=== PATIENT | female | born 1945 | race Caucasian/White ===

== ENCOUNTER 2017-04-05 16:41 | Inpatient (IN) | payer MEDICARE ==
[2017-04-05] VITALS (11 sets, daily range): BP systolic 90–121; BP diastolic 49–60; PULSE 86–122; RESP 20–24; TEMP 97.6–98.2; O2SAT 97–99
[~2017-04-05] VITALS: Ht 165.1 cm; Wt 69.4 kg
[~2017-04-05 16:41] MED LIST: Z.0.NO CURRENT MEDS
[2017-04-05] MEDS ORDERED: PRIL20TA2 PO (17:00)
[2017-04-05] MEDS ORDERED: SODIUM CHLOR 0.9% 1000 ML INJ 1,000 ML IV ONE (17:08)
--- NOTE | 2017-04-05 17:11 | PD ---
HPI Chief Complaint: Respiratory Distress Time Seen by Provider: 17:00 Travel History International Travel<30 days: No Contact w/Intl Traveler<30days: No Traveled to known affect area: No History of Present Illness HPI 71-year-old female with left neck mass and pelvic mass, scheduled for an oncology appointment this Saturday, here for evaluation of shortness of breath. The patient reports having shortness of breath for the last 2 months as well as hemoptysis. Shortness of breath is at rest, worse with exertion. No chest pain. No history of DVT or PE. No fevers or chills. No known history of cardiopulmonary disease. PFSH Past Medical History Hx Anticoagulant Therapy: No Cardiovascular Problems: No Chemotherapy: No Cerebrovascular Accident: No Diabetes: No Respiratory: No ?: Not Past Surgical History Hysterectomy: No Social History Tobacco Use: Yes Allergies-Medications (Allergen,Severity, Reaction): Coded Allergies: No Known Allergies (Unverified , 04/05/17) Reported Meds & Prescriptions Reported Meds & Active Scripts Active Reported Prilosec (Omeprazole Magnesium) 20 Mg Tab 20 Tab PO DAILY Review of Systems Except as stated in HPI: all other systems reviewed are Neg Physical Exam Narrative GENERAL: Well-developed, well-nourished, moderate respiratory distress, speaking a few words at a time. SKIN: Focused skin assessment warm/dry. HEAD: Atraumatic. Normocephalic. EYES: Pupils equal and round. No scleral icterus. No injection or drainage. ENT: No nasal bleeding or discharge. Mucous membranes pink and moist. NECK: Trachea midline. No JVD. Large left-sided neck mass. CARDIOVASCULAR: Tachycardic, regular. RESPIRATORY: Moderate respiratory distress. Speaking a few words at a time. Clear to auscultation. Diminished breath sounds on the left. Breath sounds equal bilaterally. GASTROINTESTINAL: Abdomen soft, non-tender, nondistended. MUSCULOSKELETAL: No obvious deformities. No clubbing. No cyanosis. No edema. Bilateral calves are supple, nontender. NEUROLOGICAL: Awake and alert. No obvious cranial nerve deficits. Motor grossly within normal limits. Normal speech. PSYCHIATRIC: Appropriate mood and affect; insight and judgment normal. Data Data Last Documented VS Vital Signs Date Time Temp Pulse Resp B/P (MAP) Pulse Ox O2 Delivery O2 Flow Rate FiO2 04/05/17 20:56 86 91/53 (66) 99 Nasal Cannula 2.00 04/05/17 20:01 97.6 04/05/17 18:46 20 Orders Orders Electrocardiogram (04/05/17 17:08) Complete Blood Count With Diff (04/05/17 17:08) Comprehensive Metabolic Panel (04/05/17 17:08) Prothrombin Time / Inr (Pt) (04/05/17 17:08) Act Partial Throm Time (Ptt) (04/05/17 17:08) Lactic Acid Sepsis Protocol (04/05/17 17:08) Ckmb (Isoenzyme) Profile (04/05/17 17:08) Troponin I (04/05/17 17:08) Urinalysis - C+S If Indicated (04/05/17 17:08) Blood Culture (04/05/17 17:08) Chest, Single Ap (04/05/17 17:08) Blood Glucose (04/05/17 17:08) Ecg Monitoring (04/05/17 17:08) Iv Access Insert/Monitor (04/05/17 17:08) Oximetry (04/05/17 17:08) Oxygen Administration (04/05/17 17:08) Sodium Chlor 0.9% 1000 Ml Inj (Ns 1000 M (04/05/17 17:08) Ct Pulmonary Angiogram (04/05/17 ) Ceftriaxone Inj (Rocephin Inj) (04/05/17 17:45) Azithromycin Inj (Zithromax Inj) (04/05/17 17:45) Acetaminophen (Tylenol) (04/05/17 17:45) Us Guided Thoracentesis (04/05/17 ) Amylase, Pleural Fluid (04/05/17 18:41) Glucose, Pleural Fluid (04/05/17 18:41) Ldh, Pleural Fluid (04/05/17 18:41) Pleural Fluid Ph (04/05/17 18:41) Pleural Fl Cell Count + Diff (04/05/17 18:41) Fluid Culture And Gram Stain (04/05/17 18:41) Cytology Request For Service (04/05/17 18:41) Total Protein, Pleural Fluid (04/05/17 18:41) Chest, Expiration Only (04/05/17 ) Sodium Chlor 0.9% 1000 Ml Inj (Ns 1000 M (04/05/17 20:25) Iohexol 350 Inj (Omnipaque 350 Inj) (04/05/17 19:35) Vancomycin Consult Pharmacy (Vancomycin (04/05/17 21:30) Cefepime Inj (Maxipime Inj) (04/06/17 09:00) ^ Initiate Protocol (04/05/17 21:16) Instruction (04/05/17 21:16) [facility] [place] (04/05/17 21:30) Chlorhexidine 2% Cloth (Chlorhexidine 2% (04/06/17 04:00) Chlorhexidine 2% Cloth (Chlorhexidine 2% (04/05/17 21:30) Mrsa Pcr Surveillance (04/05/17 21:16) Consult Medical Oncology (04/05/17 ) Admit Order (Ed Use Only) (04/05/17 21:18) Admit To Inpatient (04/05/17 ) Vital Signs (Adult) Q4H (04/05/17 21:18) Activity Oob With Assistance (04/05/17 21:18) Grip / Telemetry .CONTINUOUS (04/05/17 21:18) Intake + Output JOVANNA.QSHIFT (04/05/17 21:18) Sodium Chlor 0.9% 1000 Ml Inj (Ns 1000 M (04/05/17 21:18) Sodium Chloride 0.9% Flush (Ns Flush) (04/05/17 21:30) Sodium Chloride 0.9% Flush (Ns Flush) (04/06/17 09:00) Ondansetron Inj (Zofran Inj) (04/05/17 21:30) Comprehensive Metabolic Panel (04/06/17 06:00) Complete Blood Count With Diff (04/06/17 06:00) Scd Bilateral/Knee High JOVANNA.BID (04/05/17 21:18) Christian Bilateral/Knee High JOVANNA.QSHIFT (04/05/17 21:00) Acetaminophen (Tylenol) (04/05/17 21:30) Acetamin-Hydrocod 325-5 Mg ([place] 5-325 (04/05/17 21:30) Morphine Inj (Morphine Inj) (04/05/17 21:30) Docusate Sodium-Senna (Jenelle-Colace) (04/06/17 09:00) Magnesium Hydroxide Liq (Milk Of Magnesi (04/05/17 21:30) Sennosides (Senokot) (04/05/17 21:30) Bisacodyl Supp (Dulcolax Supp) (04/05/17 21:30) Lactulose Liq (Lactulose Liq) (04/05/17 21:30) Inpatient Certification (04/05/17 ) Labs Laboratory Tests Test 04/05/17 17:20 04/05/17 17:30 04/05/17 19:35 04/05/17 20:20 White Blood Count 29.3 TH/MM3 Red Blood Count 3.48 MIL/MM3 Hemoglobin 9.1 GM/DL Hematocrit 28.5 % Mean Corpuscular Volume 81.9 FL Mean Corpuscular Hemoglobin 26.2 PG Mean Corpuscular Hemoglobin Concent 32.0 % Red Cell Distribution Width 15.5 % Platelet Count 446 TH/MM3 Mean Platelet Volume 7.3 FL CBC Comment AUTO DIFF Differential Total Cells Counted 100 Neutrophils % (Manual) 97 % Monocytes % 3 % Neutrophils # (Manual) 28.4 TH/MM3 Differential Comment FINAL DIFF MANUAL Hematology Comments Prothrombin Time 12.8 SEC Prothromb Time International Ratio 1.2 RATIO Activated Partial Thromboplast Time 30.0 SEC Blood Urea Nitrogen 18 MG/DL Creatinine 0.55 MG/DL Random Glucose 144 MG/DL Total Protein 6.3 GM/DL Albumin 1.4 GM/DL Calcium Level 7.3 MG/DL Alkaline Phosphatase 132 U/L Aspartate Amino Transf (AST/SGOT) 27 U/L Alanine Aminotransferase (ALT/SGPT) 16 U/L Total Bilirubin 0.6 MG/DL Sodium Level 121 MEQ/L Potassium Level 3.4 MEQ/L Chloride Level 81 MEQ/L Carbon Dioxide Level 28.5 MEQ/L Anion Gap 12 MEQ/L Estimat Glomerular Filtration Rate 109 ML/MIN Protein Corrected Calcium 7.7 MG/DL Total Creatine Kinase 17 U/L Troponin I LESS THAN 0.02 NG/ML Lactic Acid Level 2.2 mmol/L 1.6 mmol/L Pleural Fluid pH 8.5 Pleural Fluid WBC 700 /MM3 Pleural Fluid RBC 3730 /MM3 Pleural Fluid Neutrophils 19 % Pleural Fluid Lymphocytes 70 % Pleural Fluid Monocytes 11 % Pleural Fluid Total Protein 3.4 GM/DL Pleural Fluid LDH 171 U/L Pleural Fluid Glucose 142 MG/DL MDM Medical Decision Making Medical Screen Exam Complete: Yes Emergency Medical Condition: Yes Medical Record Reviewed: Yes Interpretation(s) EKG: Sinus, rate 112, normal axis, normal intervals, no acute ischemic abnormality. Differential Diagnosis PE, pleural effusion, pericardial effusion, ACS, pneumothorax, pneumonia Narrative Course Chest x-ray read as large left pleural effusion. 6:00 PM: I discussed with on-call radiologist. Currently the interventional radiologist is any procedure. Will try to schedule ultrasound-guided thoracentesis for this evening. Initial vital signs show heart rate 122, blood pressure 121/60, pulse ox 99% on 3 L nasal cannula, oral temp of 98.2F. Rectal temp is 100F. CBC shows WBC 29.3, hemoglobin 9.1, hematocrit 28.5, platelets 446. CMP is remarkable for sodium 121, chloride 81, protein cracked a calcium 7.7. Cardiac enzymes are negative. Lactic acid is 2.2. 8:08 PM: Patient returned from thoracentesis by interventional radiology. 1900 cc of red fluid was removed. Patient appears objectively improved respiratory joya. She still having slight subjective shortness of breath. CT pulmonary angiogram: CONCLUSION: 1. Large, malignant appearing mass of the left lower lobe. The mass involves the pleural and encases/obliterates the left lower lobe pulmonary artery. There is no pulmonary embolus. 2. Metastatic mediastinal lymphadenopathy. 3. 11 mm right lower lobe pulmonary nodule and a few scattered sub-4 mm pulmonary nodules of the left upper lobe will need attention on followup imaging. 4. Reexpansion edema the left upper lobe. The patient is status post left-sided thoracentesis. No pneumothorax. 5. Coronary artery calcification. 6. Nonspecific lobular contour of the liver. Cirrhosis and metastatic disease would be in the differential. There is also fullness of the left adrenal gland and apparent thickening of the visualized stomach. Patient was given IV Rocephin and IV azithromycin cover for pneumonia. She was made aware of all findings. She will be admitted for further treatment and evaluation. Case discussed with hospitalist Dr. Koo who will admit the patient to her service. Critical Care Narrative Aggregate critical care time was 45 minutes. Time to perform other separately billable procedures was not included in the critical care time. My time did not include minutes spent treating any other patients simultaneously or on activities that did not directly contribute to the patient's treatment. The services I provided to this patient were to treat and/or prevent clinically significant deterioration that could result in: , permanent disability, respiratory failure, septic shock I provided critical care services requiring my management, as noted below: Chart data review, documentation time, medication orders and management, vital sign assessments/reviewing monitor data, ordering and reviewing lab tests, ordering and interpreting/reviewing x-rays and diagnostic studies, care of the patient and discussion of the patient with the admitting physicians. Diagnosis Primary Impression: Pleural effusion Additional Impressions: Shortness of breath Sepsis Qualified Codes: A41.9 - Sepsis, unspecified organism Hyponatremia Pneumonia Qualified Codes: J18.9 - Pneumonia, unspecified organism Metastatic disease Lung mass Admitting Information Admitting Physician Requests: Admit Elias Najera MD Apr 05, 2017 17:11
--- NOTE | 2017-04-05 17:28 | RADRPT ---
EXAM DATE/TIME: 04/05/2017 17:08 [facility] COMPARISON: No previous studies available for comparison. INDICATIONS : Shortness of breath for 2 days MEDICAL HISTORY : None. SURGICAL HISTORY : None. ENCOUNTER: Initial ACUITY: 2 days PAIN SCORE: 0/10 LOCATION: Bilateral chest FINDINGS: Portable AP view of the chest demonstrates a normal-sized cardiac silhouette. There is a large pleura l-parenchymal opacity occupying two thirds of the left hemithorax. There is no rightward shift of the mediastinum. Right lung is clear. No pneumothorax is visualized. Bones demonstrate no acute finding. CONCLUSION: Large left pleural effusion with associated volume loss and/or consolidation. Kyler Dunaway MD on April 05, 2017 at 17:25 Board Certified Radiologist. This report was verified electronically.
[2017-04-05] MEDS ORDERED: cefTRIAXone INJ 1,000 MG in SODIUM CHLORIDE 0.9% INJ 100 ML IV ONE (17:45)
[2017-04-05] MEDS ORDERED: ACETAMINOPHEN 325 MG TAB PO ONE (17:45)
[2017-04-05] MEDS ORDERED: AZITHROMYCIN INJ 500 MG in SODIUM CHLOR 0.9% 250 ML INJ 250 ML IV ONE (17:45)
[2017-04-05 17:59] LABS: HEMATOCRIT 28.5 % (35.0-46.0); MEAN CELL VOLUME 81.9 FL (80.0-100.0); MEAN CORPUSCULAR HEMOGLOBIN 26.2 PG (27.0-34.0); PLATELET COUNT 446 TH/MM3 (150-450); RED BLOOD COUNT 3.48 MIL/MM3 (4.00-5.30); RED CELL DISTRIBUTION WIDTH 15.5 % (11.6-17.2); WHITE BLOOD COUNT 29.3 TH/MM3 (4.0-11.0)
[2017-04-05 18:07] LABS: HEMO FLAGS AUTO DIFF
[2017-04-05 18:08] LABS: HEMATOLOGY STUDY COMMENT ND
[2017-04-05 18:19] LABS: INTERNATIONAL NORMALIZED RATIO 1.2 RATIO; PROTHROMBIN TIME - PATIENT 12.8 SEC (9.8-11.6)
[2017-04-05 18:32] LABS: ALKALINE PHOSPHATASE 132 U/L (45-117); ALT (GPT) 16 U/L (10-53); ANION GAP 12 MEQ/L (5-15); AST (GOT) 27 U/L (15-37); BICARBONATE 28.5 MEQ/L (21.0-32.0); BLOOD UREA NITROGEN 18 MG/DL (7-18); CALCIUM-PROTEIN CORRECTED 7.7 MG/DL (8.5-10.1); CHLORIDE 81 MEQ/L (98-107); GLOMERULAR FILTRATION RATE 109 ML/MIN (>89); POTASSIUM 3.4 MEQ/L (3.5-5.1); TOTAL BILIRUBIN ADULT 0.6 MG/DL (0.2-1.0)
[2017-04-05 18:35] LABS: NEUTROPHIL # MANUAL DIFF 28.4 TH/MM3 (1.8-7.7); POLYS (SEG NEUTROPHILS) 97 % (16-70); WBC DIFF SAMPLE 100
[2017-04-05 18:36] LABS: SCAN/DIFF FINAL DIFF MANUAL
[2017-04-05 18:55] LABS: CREATINE KINASE 17 U/L (26-192)
[2017-04-05 18:59] LABS: SODIUM (NA) 121 MEQ/L (136-145)
[2017-04-05] MEDS ORDERED: IOHEXOL 350 MG/ML 10 ML VIAL (for RAD DIAG) IVCONTRAST ONE (19:35)
[2017-04-05 19:51] LABS: LACTIC ACID GHOST NOT REPORTABLE
--- NOTE | 2017-04-05 20:06 | RADRPT ---
EXAM DATE/TIME: 04/05/2017 19:50 [facility] COMPARISON: CHEST SINGLE AP, April 05, 2017, 17:08. INDICATIONS : Post thoracentesis. MEDICAL HISTORY : None. SURGICAL HISTORY : None. ENCOUNTER: Subsequent ACUITY: 1 day PAIN SCORE: 0/10 LOCATION: Bilateral chest FINDINGS: Near-complete resolution of the previously seen left pleural effusion after thoracentesis. A 9 cm rou nded opacity is now seen in the left hilum. There is mild consolidation of the left lung base. Right lung remains clear. No pneumothorax. CONCLUSION: 1. Near-complete resolution of left pleural effusion post thoracentesis. No pneumothorax. 2. Mild left base consolidation. 3. Large left hilar mass. Kyler Parisi MD on April 05, 2017 at 20:04 Board Certified Radiologist. This report was verified electronically.
[2017-04-05] MEDS ORDERED: SODIUM CHLOR 0.9% 1000 ML INJ 1,000 ML IV SCH (20:25)
--- NOTE | 2017-04-05 20:55 | RADRPT ---
EXAM DATE/TIME: 04/05/2017 20:29 [facility] COMPARISON: CHEST EXPIRATION ONLY, April 05, 2017, 19:50. CHEST SINGLE AP, April 05, 2017, 17:08. INDICATIONS : Shortness of breath. History neck tumor. IV CONTRAST: 72 cc Omnipaque 350 (iohexol) IV RADIATION DOSE: 23.25 CTDIvol (mGy) MEDICAL HISTORY : Cerebrovascular disease. SURGICAL HISTORY : Thoracenthesis a few minutes ago. ENCOUNTER: Initial ACUITY: 1 month PAIN SCALE: 5/10 LOCATION: Bilateral chest TECHNIQUE: Volumetric scanning of the chest was performed using a pulmonary embolism protocol MIP images were re constructed. Using automated exposure control and adjustment of the mA and/or kV according to patien t size, radiation dose was kept as low as reasonably achievable to obtain optimal diagnostic quality images. DICOM format image data is available electronically for review and comparison. Follow-up recommendations for detected pulmonary nodules are based at a minimum on nodule size and pa tient risk factors according to Fleischner Society Guidelines. FINDINGS: Large left lower lobe mass measuring approximately 9.4 x 11.2 x 12.2 cm in size noted. There is patch y in mass like and nodular pleural thickening on the left. The mass encases and obliterates the left lower lobe pulmonary artery. No pulmonary embolus demonstrated. There is a subcarinal lymph node measuring 2.6 x 4.0 cm in size. Patchy infiltrates seen in the lingular division of the left upper lobe, most likely reexpansion rela marcelino from recent thoracentesis. A few scattered sub-4 mm left upper lobe pulmonary nodules are noted. There is no pneumothorax. 11 mm irregular nodule seen in the right lower lobe, series 3 image 80. Normal heart size. Coronary artery calcification noted. Lobular contour seen of the visualized liver, especially the left hepatic lobe. There is fullness of the left adrenal gland. Right adrenal gland not included on the study. Potentially some wall thickeni ng of the stomach. Cyst noted of the upper pole of the left kidney. CONCLUSION: 1. Large, malignant appearing mass of the left lower lobe. The mass involves the pleural and encases/ obliterates the left lower lobe pulmonary artery. There is no pulmonary embolus. 2. Metastatic mediastinal lymphadenopathy. 3. 11 mm right lower lobe pulmonary nodule and a few scattered sub-4 mm pulmonary nodules of the left upper lobe will need attention on followup imaging. 4. Reexpansion edema the left upper lobe. The patient is status post left-sided thoracentesis. No pne umothorax. 5. Coronary artery calcification. 6. Nonspecific lobular contour of the liver. Cirrhosis and metastatic disease would be in the differe ntial. There is also fullness of the left adrenal gland and apparent thickening of the visualized sto mach. Kyler Parisi MD on April 05, 2017 at 20:46 Board Certified Radiologist. This report was verified electronically.
--- NOTE | 2017-04-05 21:21 | HHI.HP ---
[facility] No Primary Care Physician Admission Diagnosis lung mass, metastatic disease, pleural effusion, sepsis Diagnoses: (1) Sepsis Diagnosis: Principal (2) Metastatic disease Diagnosis: Principal (3) Pleural effusion Diagnosis: Principal (4) Hyponatremia Diagnosis: Principal Travel History International Travel<30 Days: No Contact w/Intl Traveler <30 Da: No Traveled to Known Affected Are: No History of Present Illness This is a 71-year-old female with no significant PMH reported who presented to the ER with complaints of SOB x1 month. States she noted left neck mass approx 1mo ago at the time symptoms started, was also told she has pelvic mass, scheduled for appt w/ Oncology on Saturday, however pt doesn't know name of physician. Today, SOB progressively worse. Denies fever, chills, cough or sick contacts. On arrival, BP 121/60, HR 122, O2 sat 99% on RA, Afebrile. WBC 29.3. Hemoglobin 9.1. Na 121. Lactic Acid 2.2, repeat 1.6. Negative. INR 1.2. CXR with large left pleural effusion with associated volume loss and or consolidation. S/p Thoracentesis by IR w/ removal of 1900cc bloody fluid, CTA Pulm negative for PE, found to have large malignant appearing mass LLL which obliterates left pulm artery, re-expansion edema in OLVIN, possible metastatic disease to liver. Pt previously unaware of these findings. S/p Blood Culture, Rocephin/Zitho in ER. Review of Systems Except as stated in HPI: all other systems reviewed are Neg ROS: 14 point review of systems otherwise negative. Past Family Social History Past Medical History PMH: None Past Surgical History PAST SURGICAL HISTORY: None Allergies: Coded Allergies: No Known Allergies (Unverified , 04/05/17) Family History PAST FAMILY HISTORY: Reviewed. No h/o DM or CAD Social History PAST SOCIAL HISTORY: Negative for alcohol or drugs. History of Tobacco Abuse, quit 6 years ago. Physical Exam Vital Signs Vital Signs Date Time Temp Pulse Resp B/P (MAP) Pulse Ox O2 Delivery O2 Flow Rate FiO2 8/25/17 20:56 86 91/53 (66) 99 Nasal Cannula 2.00 04/05/17 20:45 91 103/49 (67) 98 Nasal Cannula 2.00 04/05/17 20:24 97 Nasal Cannula 2.00 04/05/17 20:24 (67) 98 Nasal Cannula 2.00 04/05/17 20:21 95 90/55 (67) 04/05/17 20:01 97.6 98 95/55 (68) 97 Nasal Cannula 04/05/17 19:45 97.6 100 93/58 (70) 98 Nasal Cannula 2.00 04/05/17 18:46 98.2 113 20 119/60 (79) 98 Nasal Cannula 3.00 04/05/17 17:18 24 99 Nasal Cannula 3.00 04/05/17 17:16 99 Nasal Cannula 3.00 04/05/17 16:55 122 24 99 Nasal Cannula 3.00 04/05/17 16:54 98.2 122 24 121/60 (80) 99 Physical Exam PE: GENERAL: Elderly female in no acute distress. HEENT: PERRLA, EOMI. No scleral icterus or conjunctival pallor. No lid lag or facial droop. Large neck mass, left. CARDIOVASCULAR: Regular rate and rhythm. No obvious murmurs to auscultation. No chest tenderness to palpation. RESPIRATORY: No obvious rhonchi or wheezing. Clear to auscultation. Breath sounds equal bilaterally. GASTROINTESTINAL: Abdomen soft, non-tender, nondistended. BS normal. MUSCULOSKELETAL: Extremities without clubbing, cyanosis, or edema. No obvious deformities. NEUROLOGICAL: Awake, alert and oriented x4. No focal neurologic deficits. Moving both upper and lower extremities spontaneously. Laboratory Laboratory Tests Test 04/05/17 17:20 04/05/17 17:30 04/05/17 19:35 04/05/17 20:20 White Blood Count 29.3 Red Blood Count 3.48 Hemoglobin 9.1 Hematocrit 28.5 Mean Corpuscular Volume 81.9 Mean Corpuscular Hemoglobin 26.2 Mean Corpuscular Hemoglobin Concent 32.0 Red Cell Distribution Width 15.5 Platelet Count 446 Mean Platelet Volume 7.3 CBC Comment AUTO DIFF Differential Total Cells Counted 100 Neutrophils % (Manual) 97 Monocytes % 3 Neutrophils # (Manual) 28.4 Differential Comment FINAL DIFF MANUAL Hematology Comments Prothrombin Time 12.8 Prothromb Time International Ratio 1.2 Activated Partial Thromboplast Time 30.0 Blood Urea Nitrogen 18 Creatinine 0.55 Random Glucose 144 Total Protein 6.3 Albumin 1.4 Calcium Level 7.3 Alkaline Phosphatase 132 Aspartate Amino Transf (AST/SGOT) 27 Alanine Aminotransferase (ALT/SGPT) 16 Total Bilirubin 0.6 Sodium Level 121 Potassium Level 3.4 Chloride Level 81 Carbon Dioxide Level 28.5 Anion Gap 12 Estimat Glomerular Filtration Rate 109 Protein Corrected Calcium 7.7 Total Creatine Kinase 17 Troponin I LESS THAN 0.02 Lactic Acid Level 2.2 1.6 Pleural Fluid pH 8.5 Date/Time Source Procedure Growth Status 04/05/17 17:20 Blood Peripheral Aerobic Blood Culture Pending Received 04/05/17 17:20 Blood Peripheral Anaerobic Blood Culture Pending Received 04/05/17 19:35 Fluid Pleural Fluid Gram Stain Pending Received 04/05/17 19:35 Fluid Pleural Fluid Body Fluid Culture Pending Received Result Diagram: 04/05/17 1720 04/05/17 1720 Caprini VTE Risk Assessment Caprini VTE Risk Assessment: Mod/High Risk (score >= 2) VTE Pharm Contraindication: High risk for bleeding Caprini Risk Assessment Model Point Value = 1 Point Value = 2 Point Value = 3 Point Value = 5 Age 41-60 Minor surgery BMI > 25 kg/m2 Swollen legs Varicose veins or History of unexplained or recurrent spontaneous Oral contraceptives or hormone replacement Sepsis (< 1 month) Serious lung disease, including pneumonia (< 1 month) Abnormal pulmonary function Acute myocardial infarction Congestive heart failure (< 1 month) History of inflammatory bowel disease Medical patient at bed rest Age 61-74 Arthroscopic surgery Major open surgery (> 45 min) Laparoscopic surgery (> 45 min) Malignancy Confined to bed (> 72 hours) Immobilizing plaster cast Central venous access Age >= 75 History of VTE Family history of VTE Factor V Leiden Prothrombin [id number] Lupus anticoagulant Anticardiolipin antibodies Elevated serum homocysteine Heparin-induced thrombocytopenia Other congenital or acquired thrombophilia Stroke (< 1 month) Elective arthroplasty Hip, pelvis, or leg fracture Acute spinal cord injury (< 1 month) Prophylaxis Regimen Total Risk Factor Score Risk Level Prophylaxis Regimen 0-1 Low Early ambulation 2 Moderate Order ONE of the following: *Sequential Compression Device (SCD) *Heparin 5000 units SQ BID 3-4 Higher Order ONE of the following medications: *Heparin 5000 units SQ TID *Enoxaparin/Lovenox 40 mg SQ daily (WT < 150 kg, CrCl > 30 mL/min) *Enoxaparin/Lovenox 30 mg SQ daily (WT < 150 kg, CrCl > 10-29 mL/min) *Enoxaparin/Lovenox 30 mg SQ BID (WT < 150 kg, CrCl > 30 mL/min) AND/OR *Sequential Compression Device (SCD) 5 or more Highest Order ONE of the following medications: *Heparin 5000 units SQ TID (Preferred with Epidurals) *Enoxaparin/Lovenox 40 mg SQ daily (WT < 150 kg, CrCl > 30 mL/min) *Enoxaparin/Lovenox 30 mg SQ daily (WT < 150 kg, CrCl > 10-29 mL/min) *Enoxaparin/Lovenox 30 mg SQ BID (WT < 150 kg, CrCl > 30 mL/min) AND *Sequential Compression Device (SCD) Assessment and Plan Problem List: (1) Sepsis ICD Code: A41.9 - Sepsis, unspecified organism Status: Acute (2) Metastatic disease ICD Code: C79.9 - Secondary malignant neoplasm of unspecified site Status: Acute (3) Pleural effusion ICD Code: J90 - Pleural effusion, not elsewhere classified Status: Acute (4) Hyponatremia ICD Code: E87.1 - Hypo-osmolality and hyponatremia Status: Acute Assessment and Plan A/P: 1. Sepsis: HR 122, WBC 29.3, Lactic Acid 2.2. Source-presumably PNA. S/p Blood Culture/Fluid Cultures, Rocephin/Zithro. Follow up cultures, continue w/ broad spectrum antibiotics w/ IV Vanc/Cefepime. 2. Left Pleural Effusion: SOB x1 mo, now w/ progressive symptoms, CXR w/ large left pleural effusion, s/p Thoracentesis by IR w/ removal of 1900cc sanguinous fluid. 3. Metastatic Disease: Large left-sided neck mass, reports pelvic mass w/ upcoming Oncology appt, CTA Pulm w/ large malignant appearing lung mass LLL which obliterates left lower lobe pulmonary artery, metastatic mediastinal lymphadenopathy, and cirrhosis w/ possible metastatic disease, images reviewed by me. Will consult Oncology for further eval. Obtain CT Abd/Pelvis in 24hrs after CTA. 4. Hyponatremia: Na 121, possibly secondary to dehydration from sepsis, or SIADH, s/p IVF, repeat labs in am. 5. DVT Prophylaxis: SCD/Teds. 6. Social work for d/c planning as needed. 7. Case discussed w/ ER physician at length. Physician Certification 2 Midnight Certification Type: Admission for Inpatient Services Order for Inpatient Services The services are ordered in accordance with Medicare regulations or non- Medicare payer requirements, as applicable. In the case of services not specified as inpatient-only, they are appropriately provided as inpatient services in accordance with the 2-midnight benchmark. Estimated LOS (days): 2 days is the estimated time the patient will need to remain in the hospital, assuming treatment plan goals are met and no additional complications. Post-Hospital Plan: Not yet determined Problem Qualifiers (1) Sepsis: Qualified Codes: A41.9 - Sepsis, unspecified organism Matilda Koo MD Apr 05, 2017 21:21
[2017-04-05] MEDS ORDERED: MAGNESIUM HYDROXIDE SUSP 30 ML CUP PO PRN (21:30)
[2017-04-05] MEDS ORDERED: MISCELLANEOUS NURSING INFORMATION XX SCH (21:30)
[2017-04-05] MEDS ORDERED: LACTULOSE SYRUP 20 GM/30 ML CUP PO PRN (21:30)
[2017-04-05] MEDS ORDERED: SENNOSIDES 8.6 MG TAB PO PRN (21:30)
[2017-04-05] MEDS ORDERED: ONDANSETRON HCL 4 MG/2 ML VIAL IVP PRN (21:30)
[2017-04-05] MEDS ORDERED: BISACODYL 10 MG SUPP RECTAL PRN (21:30)
[2017-04-05] MEDS ORDERED: CHLORHEXIDINE GLUCONATE 2 % 1 PACK (2 CLOTHS) TOP PRN (21:30)
[2017-04-05] MEDS ORDERED: MORPHINE SULFATE 4 MG/ML INJ IV PRN (21:30)
[2017-04-05] MEDS ORDERED: ACETAMINOPHEN 325 MG TAB PO PRN (21:30)
[2017-04-05] MEDS ORDERED: SODIUM CHLORIDE 0.9% FLUSH 10 ML FLUSH IV FLUSH PRN (21:30)
[2017-04-05] MEDS ORDERED: Vancomycin Consult Pharmacy 1 EA OTHER SCH (21:30)
[2017-04-05 21:43] LABS: TOTAL PROTEIN,PLEURAL FLUID 3.4 GM/DL
[2017-04-05] MEDS: SODIUM CHLOR 0.9% 1000 ML INJ 1,000 ML IV SCH (21:58)
[2017-04-05] MEDS: VANCOMYCIN 1,000 MG/NS 250 ML IV SCH ×2 (22:05)
[2017-04-05 22:33] LABS: PLEURAL FLUID LYMPHS 70 %
[2017-04-06] VITALS (12 sets, daily range): BP systolic 88–105; BP diastolic 55–60; PULSE 90–124; RESP 20–35; TEMP 98.4–98.9; O2SAT 93–96
[2017-04-06] MEDS ORDERED: POTASSIUM CHLORIDE 20 MEQ CONTROLLED RELEASE TAB PO ONE (00:30)
[2017-04-06] MEDS ORDERED: diphenhydrAMINE HCL 25 MG CAP PO ONE (00:30)
[2017-04-06] MEDS: CHLORHEXIDINE GLUCONATE 2 % 1 PACK (2 CLOTHS) TOP SCH (00:36)
[2017-04-06] MEDS: SODIUM CHLOR 0.9% 1000 ML INJ 1,000 ML IV SCH ×2 (08:12→17:18)
[2017-04-06] MEDS: CEFEPIME INJ 1,000 MG in SODIUM CHLORIDE 0.9% INJ 100 ML IV SCH ×2 (08:14→20:21)
[2017-04-06] MEDS: SODIUM CHLORIDE 0.9% FLUSH 10 ML FLUSH IV FLUSH SCH ×2 (08:14→20:22)
[2017-04-06] MEDS: DOCUSATE SODIUM 50 MG/SENNA 8.6 MG TAB PO SCH ×2 (08:15→20:22)
[2017-04-06] MEDS: VANCOMYCIN 1,000 MG/NS 250 ML IV SCH ×4 (08:17→21:38)
[2017-04-06 09:39] LABS: ALKALINE PHOSPHATASE 112 U/L (45-117); ALT (GPT) 17 U/L (10-53); ANION GAP 11 MEQ/L (5-15); AST (GOT) 25 U/L (15-37); CHLORIDE 91 MEQ/L (98-107); GLOMERULAR FILTRATION RATE 184 ML/MIN (>89); POTASSIUM 3.7 MEQ/L (3.5-5.1); SODIUM (NA) 125 MEQ/L (136-145); TOTAL BILIRUBIN ADULT 0.8 MG/DL (0.2-1.0)
[2017-04-06 09:41] LABS: BLOOD UREA NITROGEN 10 MG/DL (7-18)
--- NOTE | 2017-04-06 13:23 | MB ---
cc: NICO BE DATE OF CONSULTATION: 04/06/2017 REASON FOR CONSULTATION: 71-year-old female with a rapidly enlarging left neck mass, huge left lung mass, mass above the vulva and mass over the right back. PATIENT PROFILE The patient is a 71-year white female. She is . She was once she was born in [place], [place]. Her father is 97 and resides with her. She has no children. She was independent until the past month when she became ill and debilitated. She is retired. 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 She stopped smoking 60 years ago and smoked a pack of cigarettes per day for 40 pack-years. She has had no alcohol since 1977 but prior to this was alcoholic. She has cirrhosis secondary to her previous alcohol intake. HISTORY OF PRESENT ILLNESS The patient is a 71-year female who dates her current problem back to approximately 3 months ago when she noted a small nodule in the left neck and some fullness immediately above the left vulvar area. This grew rapidly. She has seen three physicians. She saw Dr. Silva who is an ear, nose, and throat physician. she apparently had some type of biopsy and was being referred to [place], [place] for surgery for possible head and neck cancer. She saw Dr. Carter who is a fashion journalist due to a mass in the vulvar area and was referred to Dr. Wetzel who is a gynecologic oncologist. She has not had the appointment with Dr. Wetzel as of the present time. Over the past several weeks the neck mass has grown considerably. She became increasingly short of breath and this prompted her to go to the emergency room at [facility]. On 04/05/[address] of the thorax which shows a large malignant appearing mass involving the left lower lobe extending to the pleura and encases and obliterates the left lower lobe pulmonary artery. There is no pulmonary embolus. There is mediastinal adenopathy. There is a 11 mm right lower lobe pulmonary nodule and a few scattered sub 4 mm pulmonary nodules involving the left upper lobe. The patient underwent a thoracentesis, cytology is pending. At the present time her problems are exertional shortness of breath and an enlarging but not painful mass in the left neck, a mass in the right posterior back which has been growing over the past month and a mass above the left vulvar area. She has lost about 15 pounds. Appetite is slightly diminished. She has exertional shortness of breath. She has had night sweats on two occasions. PAST SURGICAL HISTORY 1. Fracture left wrist. PAST MEDICAL HISTORY 1. Previous history of alcoholism with cirrhosis. 2. Last colonoscopy approximately [address] Bailey and she states that this was a normal. She had an upper endoscopy approximately 9 years ago and found have an ulcer in the stomach. MEDICATIONS PRIOR TO ADMISSION Omeprazole. ALLERGIES None. FAMILY HISTORY Notable for her mother dying of colon cancer. I was her mothers physician. Her father is 97 and living. She is only child. REVIEW OF SYSTEMS HEAD, EYES, EARS, NOSE, AND THROAT: Vision is normal. Hearing is normal. CARDIOVASCULAR SYSTEM: No chest pain, palpitations. RESPIRATORY: Exertional shortness of breath. GASTROINTESTINAL: No melena acute hematemesis. There is an 10-15 pounds weight loss. GENITOURINARY: No dysuria, frequency, hematuria. MUSCULOSKELETAL: No bone pain. NEUROLOGIC: No weakness. No psychiatric illness. SKIN: The skin is notable for the soft tissue mass left neck, back and above the left vulvar area. PHYSICAL EXAMINATION: IN GENERAL: Reveals a pleasant female and when I walked into the room there is a softball size mass protruding from the left neck with the skin tense and slightly purple. HEAD, EYES, EARS, NOSE, AND THROAT: Head is normocephalic. Sclerae and conjunctivae are normal. Oropharynx is unremarkable. Mass or lymph node in the left neck as described above. It appears to be a single huge mass the size of a baseball. It is fixed. HEART: Regular rhythm. LUNGS: The right lung clear, left lung diminished sounds. ABDOMEN: The abdomen is without hepatosplenomegaly. EXTREMITIES: The extremities with trace edema. MUSCULOSKELETAL: No bone pain. NEUROLOGIC: No weakness. SKIN: Examination of skin reveals the large left neck mass. There is a subcutaneous soft tissue mass above the left vulvar area 5-6 cm. There is a 5 cm firm mass in the middle of the back on the right side. LABORATORY STUDIES: Lytes, BUN and creatinine notable for sodium 125, liver function tests are normal. Albumin is 1.2. CBC and platelet count hemoglobin 9.1, white count 29,000, platelets 466,000 neutrophils and 97%. ASSESSMENT 1. 71 year-old female with a rapidly progressive malignancy involving neck, back, lung, soft tissue. This is not a surgical problem. The diseases that come to mind; 1. Small cell lung cancer which would explain the low sodium. 2. Lymphoma. RECOMMENDATIONS It is imperative that we establish a diagnosis quickly, as this has grown enormously in the span of several months. I believe that the most appropriate thing to do is a biopsy of the subcutaneous lesion over the back, to obtain adequate tissue to make a diagnosis and to allow for special studies if indicated. I contacted Dr. Juliocesar Carter who is a surgeon. He was kind enough to come up to the room and examined the patient and he will do a biopsy this coming Saturday. He will place an [id number] at the same time. I have ordered a CEA and LDH. I believe it will be easy to establish a diagnosis and hopefully we are dealing with a treatable malignancy. MD NARCISO Copeland/rudy /12:37 PM /1:01 PM MTDMnial
[2017-04-06 13:42] LABS: AUTOMATED NEUTROPHIL # 23.1 TH/MM3 (1.8-7.7); BASOPHIL # 0.1 TH/MM3 (0-0.2); BASOPHIL % 0.5 % (0.0-2.0); EOSINOPHIL # 0.4 TH/MM3 (0-0.4); EOSINOPHIL % 1.4 % (0.0-4.0); HEMATOCRIT 26.5 % (35.0-46.0); HEMO FLAGS DIFF FINAL; LYMPHOCYTE # 2.5 TH/MM3 (1.0-4.8); MEAN CELL VOLUME 81.3 FL (80.0-100.0); MEAN CORPUSCULAR HEMOGLOBIN 27.7 PG (27.0-34.0); MEAN CORPUSCULAR HGB CONC 34.1 % (32.0-36.0); MONO % 5.8 % (0.0-8.0); NEUT % 83.3 % (16.0-70.0); PLATELET COUNT 337 TH/MM3 (150-450); RED BLOOD COUNT 3.26 MIL/MM3 (4.00-5.30); WHITE BLOOD COUNT 27.7 TH/MM3 (4.0-11.0)
[2017-04-06] MEDS ORDERED: TEMAZEPAM 15 MG CAP PO PRN (14:30)
--- NOTE | 2017-04-06 14:34 | HHI.PR ---
Subjective Remarks patient awake and alert left neck/submandibular mass since December- had difficulty setting up with a PCP increasing shortness of breath since- finally came had thoracentesis done- shortness of breath unchange after thoracentesis denies any pain, fever or chills, no difficulty swallowing requesting for a sleeping pill for tonight states smoker about 1 pack per day patient feels more comfortable and at ease now that Dr. Barajas is going to be ff her here and as OP Objective Vitals Vital Signs Date Time Temp Pulse Resp B/P (MAP) Pulse Ox O2 Delivery O2 Flow Rate FiO2 04/06/17 08:00 105 04/06/17 08:00 98.8 101 24 101/55 (70) 93 04/06/17 06:00 103 04/06/17 04:00 104 04/06/17 04:00 98.6 96 22 99/56 (70) 94 04/06/17 02:00 96 04/06/17 00:00 90 04/06/17 00:00 98.4 90 35 93/55 (68) 95 04/05/17 22:00 92 98/55 (69) 98 Nasal Cannula 2.00 04/05/17 21:55 99 Nasal Cannula 2.00 04/05/17 21:43 89 90/52 (65) 99 Nasal Cannula 2.00 04/05/17 20:56 86 91/53 (66) 99 Nasal Cannula 2.00 04/05/17 20:45 91 103/49 (67) 98 Nasal Cannula 2.00 04/05/17 20:24 97 Nasal Cannula 2.00 04/05/17 20:24 (67) 98 Nasal Cannula 2.00 04/05/17 20:21 95 90/55 (67) 04/05/17 20:01 97.6 98 95/55 (68) 97 Nasal Cannula 04/05/17 19:45 97.6 100 93/58 (70) 98 Nasal Cannula 2.00 04/05/17 18:46 98.2 113 20 119/60 (79) 98 Nasal Cannula 3.00 04/05/17 17:18 24 99 Nasal Cannula 3.00 04/05/17 17:16 99 Nasal Cannula 3.00 04/05/17 16:55 122 24 99 Nasal Cannula 3.00 04/05/17 16:54 98.2 122 24 121/60 (80) 99 I/O 04/05/17 04/05/17 04/05/17 04/06/17 04/06/17 04/06/17 07:00 15:00 23:00 07:00 15:00 23:00 Intake Total 1350 ml 1490 ml Balance 1350 ml 1490 ml Intake Oral 240 ml IV Total 1350 ml 1250 ml # Voids 2 Result Diagram: 04/06/17 1230 04/06/17 0853 Imaging Last Impressions Chest X-Ray 04/05/17 1708 Signed Impressions: Service Date/Time: Wednesday, April 05, 2017 17:08 - CONCLUSION: Large left pleural effusion with associated volume loss and/or consolidation. Kyler Dunaway MD CT Angiography 04/05/17 0000 Signed Impressions: Service Date/Time: Wednesday, April 05, 2017 20:29 - CONCLUSION: 1. Large, malignant appearing mass of the left lower lobe. The mass involves the pleural and encases/obliterates the left lower lobe pulmonary artery. There is no pulmonary embolus. 2. Metastatic mediastinal lymphadenopathy. 3. 11 mm right lower lobe pulmonary nodule and a few scattered sub-4 mm pulmonary nodules of the left upper lobe will need attention on followup imaging. 4. Reexpansion edema the left upper lobe. The patient is status post left-sided thoracentesis. No pneumothorax. 5. Coronary artery calcification. 6. Nonspecific lobular contour of the liver. Cirrhosis and metastatic disease would be in the differential. There is also fullness of the left adrenal gland and apparent thickening of the visualized stomach. Kyler Parisi MD Objective Remarks awake and alert, tachycardic anciteric large left neck mass with discoloration upper back- right side- softball size mass, hard, nontender lungs no rales or wheezes. decrease breath sounds left base tachycardic abdomen soft, nontender abdomen soft, nontender + vulvar mass extremities no edema neuro exam- non focal Procedures 04/05- left thoracentesis A/P Problem List: (1) Sepsis ICD Code: A41.9 - Sepsis, unspecified organism Status: Acute (2) Metastatic disease ICD Code: C79.9 - Secondary malignant neoplasm of unspecified site Status: Acute (3) Pleural effusion ICD Code: J90 - Pleural effusion, not elsewhere classified Status: Acute (4) Hyponatremia ICD Code: E87.1 - Hypo-osmolality and hyponatremia Status: Acute Assessment and Plan 71 years old female Multiple masses- left neck, right upper back, vulvar mass- r/o Lymphoma- work up in progress. GS consulted for biopsy and port placement SIRs from underlying malignancy- possible infection-PNA: ff blodd and pleural fuid studies. continue on Vanco and Cefepime. work up in progress Left Pleural Effusion likely malignant pleural ceffusion . SOB x1 mo, now w/ progressive symptoms, CXR w/ large left pleural effusion, s/p Thoracentesis by IR w/ removal of 1900cc sanguinous fluid. Hyponatremia: likely siADH. ff. fluid restriction DVT Prophylaxis: SCD/Teds. will need Case management involved dietitian consult dietary consult= nutrition assessment and recommendation. start ensure Problem Qualifiers (1) Sepsis: Qualified Codes: A41.9 - Sepsis, unspecified organism Marisela Thurston MD Apr 06, 2017 14:34
--- NOTE | 2017-04-06 15:17 | MB ---
cc: ALONSO ALSTON M.D. DATE OF CONSULTATION: 04/06/2017. REASON FOR CONSULTATION: Biopsy of a back mass. HISTORY OF PRESENT ILLNESS: Ms. Peterson is a very pleasant 71-year-old female who was admitted for progressive shortness of breath. During her workup and evaluation, she was noted to have a very large left neck mass as well as a vulvar mass as well as a mass on her back. She was also noted to have a large left pleural effusion with a large left lung mass. The patient was seen and evaluated by Dr. Cricket Barajas. Apparently she is undergoing workup for ENT for the left neck mass, workup with [facility] for the vulvar mass, and she has not seen anybody yet for the back mass. The patient underwent a thoracentesis with removal of two liters of bloody fluid. Dr. Barajas is concerned about an obvious malignancy and he requested evaluation by surgery for a formal biopsy of one of these masses in order to establish definitive diagnosis. The patient states that the mass in her left neck has only been there about a month and it is rapidly enlarging. She states she was healthy prior to all this. As stated, she has seen multiple physicians including ENT and [facility] who are currently working her up for all these masses. She was seen and evaluated today by Dr. Cricket Barajas, who called me and asked me to perform a biopsy of the back mass to establish the diagnosis with tissue. PAST MEDICAL HISTORY: She had alcoholism. PAST SURGICAL HISTORY: She had an open reduction internal fixation of her left wrist. MEDICATIONS: She only took Prilosec PRN. ALLERGIES: SHE HAS NO KNOWN DRUG ALLERGIES. SOCIAL HISTORY: She is a former smoker but quit many years ago. She does not drink alcohol currently but did have previous cirrhosis secondary to alcohol abuse. FAMILY HISTORY: Her family history is remarkable for colon cancer. REVIEW OF SYSTEMS: The patient reports progressive shortness of breath. She denies any dysphagia secondary to the neck mass. She denies any abdominal pain. She denies any fever or chills. PHYSICAL EXAMINATION: VITAL SIGNS: Temperature is 98, pulse is 100, blood pressure is 100/60, respiratory rate 22. GENERAL: In general, this is an ill-appearing female with a large left neck mass. HEAD, EYES, EARS, NOSE, THROAT: Pupils equal, round and reactive to light. The sclerae are white. The oropharynx is clear and moist. She has a large firm 5 cm left neck mass that is in the lateral compartment that is fixed and immobile. No other obvious masses or adenopathy is noted. LUNGS: Decreased breath sounds on the entire left side. HEART: S1-S2. No murmur. ABDOMEN: Abdomen soft and nontender. She has a mass in the left vulvar region that is also large and firm and fixed. BACK: On her back, she has about a 4 cm firm back mass on the left lower back. Skin overlying is normal in appearance. EXTREMITIES: No gross deformity x4. LABS: White blood cell count is 27, hemoglobin 9, platelet count is 337,000. Electrolytes are abnormal with hyponatremia with a sodium of 125. Calcium is low at 7.6. Albumin is low at 1.2. IMPRESSION: Probable metastatic malignancy of undetermined etiology. PLAN: I have advised the patient that I would recommend going to the operating room for a formal biopsy of the back mass as this seems to be most accessible. I also discussed with Dr. Barajas that we should probably consider putting an Infusaport in as the patient has poor peripheral access and will likely need some sort of chemotherapy. Both the patient and Dr. Barajas agree that the Infusaport should be placed. We will schedule the patient for Saturday in the operating room as there is no pathology available on the weekends. We will get this done on Saturday and hopefully establish the diagnosis. The patient is agreeable to the plan. MD RENARD Suarez/HARDY /2:51 PM /3:00 PM
--- NOTE | 2017-04-06 18:30 | EKG ---
Date Performed: 04/05/2017 Time Performed: 17:38:39 PTAGE: 71 years EKG: SINUS TACHYCARDIA WITH SHORT ME INTERVAL ABNORMAL RHYTHM ECG PREVIOUS TRACING : 01/18/1996 10.35 Compared to the previous tracing rate faster DOCTOR: Mick Grimaldo Interpretating Date/Time 04/06/2017 18:30:12
[2017-04-06] MEDS ORDERED: ZOLPIDEM TARTRATE 5 MG TAB PO ONE (23:45)
[2017-04-07] VITALS (14 sets, daily range): BP systolic 94–140; BP diastolic 50–61; PULSE 108–124; RESP 22–29; TEMP 98.3–98.8; O2SAT 90–97
[2017-04-07] MEDS: CHLORHEXIDINE GLUCONATE 2 % 1 PACK (2 CLOTHS) TOP SCH (04:00)
[2017-04-07] MEDS: SODIUM CHLOR 0.9% 1000 ML INJ 1,000 ML IV SCH ×3 (04:56→21:57)
[2017-04-07] MEDS: CEFEPIME INJ 1,000 MG in SODIUM CHLORIDE 0.9% INJ 100 ML IV SCH ×2 (08:04→21:00)
[2017-04-07] MEDS: DOCUSATE SODIUM 50 MG/SENNA 8.6 MG TAB PO SCH ×2 (08:06→21:59)
[2017-04-07] MEDS: SODIUM CHLORIDE 0.9% FLUSH 10 ML FLUSH IV FLUSH SCH ×2 (08:06→21:59)
[2017-04-07] MEDS ORDERED: PHARMACY ORDERED LAB ONE (09:45)
[2017-04-07] MEDS ORDERED: RESP: ALBUTEROL 2.5 MG/IPRATROPIUM 0.5 MG NEB (PRN) NEB (11:45)
--- NOTE | 2017-04-07 12:43 | PD.ONC.PN ---
Subjective Subjective Remarks Afebrile Reports she slept great with a sleeping pill Has been somewhat short of breath this morning. Objective Data Date Time Temp Pulse Resp B/P (MAP) Pulse Ox O2 Delivery O2 Flow Rate FiO2 04/07/17 08:00 117 04/07/17 08:00 98.3 117 26 140/61 (87) 94 04/07/17 07:40 96 Nasal Cannula 2.00 04/07/17 06:00 124 04/07/17 04:00 98.4 118 29 96/55 (69) 90 04/07/17 04:00 118 04/07/17 02:00 115 04/07/17 00:00 117 04/07/17 00:00 98.8 117 29 109/56 (73) 95 04/06/17 22:00 112 04/06/17 20:00 124 04/06/17 20:00 98.9 124 35 105/60 (75) 94 04/06/17 18:00 109 04/06/17 16:00 110 04/06/17 16:00 98.9 108 20 88/55 (66) 94 04/06/17 14:00 116 04/07/17 04/07/17 04/07/17 07:00 15:00 23:00 Intake Total 1600 ml Balance 1600 ml Result Diagram: 04/06/17 1230 04/06/17 0853 Laboratory Results Laboratory Tests Test 04/06/17 15:00 Carcinoembryonic Antigen 1.6 NG/ML Culture Results Microbiology Date/Time Source Procedure Growth Status 04/05/17 17:20 Blood Peripheral Aerobic Blood Culture - Preliminary NO GROWTH IN 2 DAYS Resulted 04/05/17 17:20 Blood Peripheral Anaerobic Blood Culture - Preliminary NO GROWTH IN 2 DAYS Resulted 04/05/17 17:05 Blood Peripheral Aerobic Blood Culture - Preliminary NO GROWTH IN 2 DAYS Resulted 04/05/17 17:05 Blood Peripheral Anaerobic Blood Culture - Preliminary NO GROWTH IN 2 DAYS Resulted 04/05/17 19:35 Fluid Pleural Fluid Gram Stain - Final Resulted 04/05/17 19:35 Fluid Pleural Fluid Body Fluid Culture - Preliminary NO GROWTH IN 48 HOURS. Resulted Administered Medications Medications (Trade) Dose Ordered Sig/Jaspal Route PRN Reason Start Time Stop Time Status Last Admin Dose Admin Cefepime HCl 1000 mg/Sodium Chloride 100 ml @ 200 mls/hr Q12H IV 04/06/17 09:00 04/07/17 08:04 Miscellaneous Information 1 Q361D XX 04/05/17 21:30 04/05/17 21:30 Chlorhexidine Gluconate (Chlorhexidine 2% Cloth) 3 pack Taper DAILY@04 TOP 04/06/17 04:00 04/02/18 03:59 04/07/17 04:00 Sodium Chloride 1,000 ml @ 100 mls/hr Q10H IV 04/05/17 21:18 04/07/17 04:56 Sodium Chloride (NS Flush) 2 ml BID IV FLUSH 04/06/17 09:00 04/07/17 08:06 Senna/Docusate Sodium (Jenelle-Colace) 1 tab BID PO 04/06/17 09:00 04/07/17 08:06 Vancomycin HCl 1000 mg/Sodium Chloride 250 ml @ 250 mls/hr Q12H IV 04/05/17 22:00 04/06/17 21:38 Temazepam (Restoril) 15 mg HS PRN PO sleep 04/06/17 14:30 04/06/17 21:38 Objective Remarks GENERAL: 71-year-old female who appears somewhat SOB with casual conversation. SKIN: Warm and dry. Mass to the R posterior scapula/back. HEAD: Normocephalic. EYES: No injection or drainage. NECK: Lg left sided neck mass CARDIOVASCULAR: CM shows ST in the low 100's. RESPIRATORY: Prolonged expiratory phase with wheezing. Breathing appears somewhat labored with conversation. GASTROINTESTINAL: Abdomen soft, non-tender, nondistended. GENITOURINARY: L sided labial/vulval mass. EXTREMITIES: No cyanosis, or edema. NEUROLOGICAL: No obvious focal deficit. Awake, alert, and oriented x3. Assessment/Plan Plan 1. The patient is scheduled to undergo biopsy tomorrow with Dr. Juliocesar wagoner to the mass on the patient's back. He will also place an [id number] at that time 2. It is our hope that this turns out to be something such as lymphoma that can be treated easily 3. Add on DuoNeb's for wheezing Attending Statement The exam, history, and the medical decision-making described in the above note were completed with the assistance of the mid-level provider. I reviewed and agree with the findings presented. I attest that I had a [id number] encounter with the patient on the same day, and personally performed and documented my assessment and findings in the medical record. Cea is normal and LDH mildly elevated. Presentation unusual and hopefully she has large cell lymphoma. will have bx tomorrow and will keep in hospital until we have a path result as I want to begin tx LES, if we are dealing with a potentially treatable or ? curable problem. Yuliya Villatoro Apr 07, 2017 12:43 Cricket Barajas MD Apr 07, 2017 18:04
[2017-04-07] MEDS: VANCOMYCIN 1,000 MG/NS 250 ML IV SCH ×2 (14:08)
--- NOTE | 2017-04-07 14:22 | HHI.PR ---
Subjective Remarks patient feels short of breath today on exam with diffuse wheezing history of heavy smoking loves the Ensure Objective Vitals Vital Signs Date Time Temp Pulse Resp B/P (MAP) Pulse Ox O2 Delivery O2 Flow Rate FiO2 04/07/17 12:00 108 04/07/17 12:00 98.4 121 24 113/56 (75) 96 04/07/17 10:00 115 04/07/17 08:00 117 04/07/17 08:00 98.3 117 26 140/61 (87) 94 04/07/17 07:40 96 Nasal Cannula 2.00 04/07/17 06:00 124 04/07/17 04:00 98.4 118 29 96/55 (69) 90 04/07/17 04:00 118 04/07/17 02:00 115 04/07/17 00:00 117 04/07/17 00:00 98.8 117 29 109/56 (73) 95 04/06/17 22:00 112 04/06/17 20:00 124 04/06/17 20:00 98.9 124 35 105/60 (75) 94 04/06/17 18:00 109 04/06/17 16:00 110 04/06/17 16:00 98.9 108 20 88/55 (66) 94 I/O 04/06/17 04/06/17 04/06/17 04/07/17 04/07/17 04/07/17 06:59 14:59 22:59 06:59 14:59 22:59 Intake Total 1490 ml 2778 ml 1600 ml Output Total 900 ml Balance 1490 ml 1878 ml 1600 ml Intake Oral 240 ml 800 ml 600 ml IV Total 1250 ml 1978 ml 1000 ml Output Urine Total 900 ml # Voids 2 3 # Bowel Movements 2 Result Diagram: 04/06/17 1230 04/06/17 0853 Imaging Last Impressions Chest X-Ray 04/05/17 1708 Signed Impressions: Service Date/Time: Wednesday, April 05, 2017 17:08 - CONCLUSION: Large left pleural effusion with associated volume loss and/or consolidation. Kyler Dunaway MD CT Angiography 04/05/17 0000 Signed Impressions: Service Date/Time: Wednesday, April 05, 2017 20:29 - CONCLUSION: 1. Large, malignant appearing mass of the left lower lobe. The mass involves the pleural and encases/obliterates the left lower lobe pulmonary artery. There is no pulmonary embolus. 2. Metastatic mediastinal lymphadenopathy. 3. 11 mm right lower lobe pulmonary nodule and a few scattered sub-4 mm pulmonary nodules of the left upper lobe will need attention on followup imaging. 4. Reexpansion edema the left upper lobe. The patient is status post left-sided thoracentesis. No pneumothorax. 5. Coronary artery calcification. 6. Nonspecific lobular contour of the liver. Cirrhosis and metastatic disease would be in the differential. There is also fullness of the left adrenal gland and apparent thickening of the visualized stomach. Kyler Parisi MD Objective Remarks awake and alert, tachycardic anicteric large left neck mass with discoloration upper back- right side- softball size mass, hard, nontender lungs- with expiratory wheezing tachycardic abdomen soft, nontender abdomen soft, nontender + vulvar mass extremities no edema neuro exam- non focal Procedures 04/05- left thoracentesis A/P Problem List: (1) Sepsis ICD Code: A41.9 - Sepsis, unspecified organism Status: Acute (2) Metastatic disease ICD Code: C79.9 - Secondary malignant neoplasm of unspecified site Status: Acute (3) Pleural effusion ICD Code: J90 - Pleural effusion, not elsewhere classified Status: Acute (4) Hyponatremia ICD Code: E87.1 - Hypo-osmolality and hyponatremia Status: Acute Assessment and Plan 71 years old female Multiple masses- left neck,back mass, vulvar mass- r/o Lymphoma- work up in progress. GS consulted for biopsy and port placement for biopsy of mass- back tomorrow SIRs from underlying malignancy- possible infection-PNA: ff blodd and pleural fuid studies. continue on Vanco and Cefepime. work up in progress Left Pleural Effusion likely malignant pleural ceffusion . SOB x1 mo, now w/ progressive symptoms, CXR w/ large left pleural effusion, s/p Thoracentesis by IR w/ removal of 1900cc sanguinous fluid. Hyperreactive airway exacerbation- likely with underlying COPD exam today with diffuse wheezing- history of smoking Start IV Solumedrol 125 mg IV now then 60 mg IV q 6 duoneb treatment a 6 scheduled and q 2 prn Hyponatremia: likely siADH. ff. fluid restriction DVT Prophylaxis: SCD/Teds. will need Case management involved dietary consult= nutrition assessment and recommendation. start ensure Problem Qualifiers (1) Sepsis: Qualified Codes: A41.9 - Sepsis, unspecified organism Marisela Thurston MD Apr 07, 2017 14:22
[2017-04-07] MEDS: PANTOPRAZOLE SOD 40 MG DELAYED RELEASE TAB PO SCH (15:00)
[2017-04-07] MEDS ORDERED: methylPREDNISolone SOD SUCC 125 MG/2 ML VIAL IV PUSH ONE (15:00)
[2017-04-07 15:02] LABS: BLOOD GAS BASE EXCESS 1.5 mmol/L (-2-2); BLOOD GAS CARBOXYHEMOGLOBIN 2.1 % (0-4); BLOOD GAS HCO3 25 mmol/L (22-26); BLOOD GAS METHEMOGLOBIN 1.1 % (0-2); BLOOD GAS O2 HGB SATURATION 94 % (90-100); BLOOD GAS OXYGEN CONTENT 11.8 Vol % (12.0-20.0); BLOOD GAS PCO2 37 mmHg (38-42); BLOOD GAS PO2 83 mmHg (61-120); BLOOD GAS TOTAL HGB 8.9 G/DL (12.0-16.0); CRITICAL VALUE NO; TEMP CORR TO 98.6
[2017-04-07 15:03] LABS: DRAW SITE RT RADIAL; LITER FLOW 1.5 L/M; NUMBER OF ARTERIAL PUNCTURES 1; OXYGEN DEVICE NASAL CANNULA; STAT NO; ULNAR PULSE PRESENT
[2017-04-07] MEDS: RESP: ALBUTEROL 2.5 MG/IPRATROPIUM 0.5 MG NEB (SCH) NEB ×2 (15:09→21:30)
--- NOTE | 2017-04-07 15:16 | RADRPT ---
EXAM DATE/TIME: 04/05/2017 19:01 [facility] COMPARISON: CHEST SINGLE AP, April 05, 2017, 17:08. CHEST EXPIRATION ONLY, April 05, 2017, 19:50. INDICATIONS : Left pleural effusion. MEDICAL HISTORY : Shortness of breath. Carcinoma, unknown etiology. SURGICAL HISTORY : Left wrist surgery. ENCOUNTER: Initial ACUITY: 1 month PAIN SCORE: 3/10 LOCATION: Left chest FLUID: Total volume of 1900 cc of clear, red fluid was removed. Fluid was sent to lab for ordered studies. TECHNIQUE: 1. Ultrasound guidance for thoracentesis. 2. Thoracentesis. The risks, benefits, and alternatives to ultrasound guided thoracentesis were explained to the patien t in lay simple terms, including the risk of bleeding and infection. Written and verbal informed con sent was obtained. Appropriate area for thoracentesis was marked under ultrasound guidance with the patient in the uprig ht position. Overlying skin was prepped and draped in the usual sterile fashion and with local anest hetic, a dermatotomy was made with an 11 blade scalpel. A 6 Haitian thoracentesis catheter was placed in the pleural space and fluid was removed. Catheter was then removed and a sterile dressing applie d. There were no immediate complications. The patient tolerated the procedure well and the left the ultrasound suite in stable condition. Chest radiograph is to be obtained. CONCLUSION: Uncomplicated ultrasound guided left thoracentesis. Vadim Fisher Jr., MD on April 07, 2017 at 15:14 Board Certified Radiologist. This report was verified electronically.
[2017-04-07] MEDS: ZOLPIDEM TARTRATE 5 MG TAB PO PRN (22:00)
[2017-04-07] MEDS: methylPREDNISolone SOD SUCC 125 MG/2 ML VIAL IV PUSH SCH (22:08)
[2017-04-07] MEDS: VANCOMYCIN INJ 1,250 MG in SODIUM CHLOR 0.9% 250 ML INJ 250 ML IV SCH (23:37)
[2017-04-08] VITALS (26 sets, daily range): BP systolic 86–159; BP diastolic 52–71; PULSE 84–106; RESP 19–30; TEMP 97.3–98.8; O2SAT 74–100
[2017-04-08] MEDS: CHLORHEXIDINE GLUCONATE 2 % 1 PACK (2 CLOTHS) TOP SCH (04:00)
[2017-04-08] MEDS: RESP: ALBUTEROL 2.5 MG/IPRATROPIUM 0.5 MG NEB (SCH) NEB ×4 (04:47→20:31)
[2017-04-08] MEDS: methylPREDNISolone SOD SUCC 125 MG/2 ML VIAL IV PUSH SCH ×2 (06:57→12:00)
[2017-04-08] MEDS: SODIUM CHLORIDE 0.9% FLUSH 10 ML FLUSH IV FLUSH SCH ×2 (09:00→23:43)
[2017-04-08] MEDS: DOCUSATE SODIUM 50 MG/SENNA 8.6 MG TAB PO SCH ×2 (09:00→21:00)
[2017-04-08] MEDS: PANTOPRAZOLE SOD 40 MG DELAYED RELEASE TAB PO SCH (09:00)
[2017-04-08] MEDS: VANCOMYCIN INJ 1,250 MG in SODIUM CHLOR 0.9% 250 ML INJ 250 ML IV SCH ×2 (10:00→23:38)
[2017-04-08] MEDS: CEFEPIME INJ 1,000 MG in SODIUM CHLORIDE 0.9% INJ 100 ML IV SCH ×2 (11:15→23:43)
--- NOTE | 2017-04-08 11:15 | HHI.PR ---
Subjective Remarks Patient remains short of breath. Tachycardia present. Plan for biopsy today. Patient has no new complaints. Objective Vital Signs Date Time Temp Pulse Resp B/P (MAP) Pulse Ox O2 Delivery O2 Flow Rate FiO2 04/08/17 08:00 106 04/08/17 08:00 106 22 112/57 (75) 97 04/08/17 07:39 96 Nasal Cannula 2.00 04/08/17 06:00 84 04/08/17 04:00 98.4 93 24 97/63 (74) 74 04/08/17 04:00 93 04/08/17 02:00 86 04/08/17 00:00 98.8 99 21 107/59 (75) 97 04/08/17 00:00 99 04/07/17 22:00 114 04/07/17 21:30 96 Nasal Cannula 2.00 04/07/17 20:00 98.8 112 25 115/59 (77) 97 04/07/17 20:00 112 04/07/17 18:00 115 04/07/17 16:00 120 04/07/17 16:00 98.6 120 22 94/50 (65) 97 04/07/17 14:00 124 04/07/17 12:00 108 04/07/17 12:00 98.4 121 24 113/56 (75) 96 I/O 04/07/17 04/07/17 04/07/17 04/08/17 04/08/17 04/08/17 07:00 15:00 23:00 07:00 15:00 23:00 Intake Total 1600 ml 3835 ml Output Total 850 ml Balance 1600 ml 2985 ml Intake Oral 600 ml 800 ml IV Total 1000 ml 3035 ml Output Urine Total 850 ml # Voids 3 1 # Bowel Movements 2 1 1 Result Diagram: 04/06/17 1230 04/06/17 0853 Objective Remarks GENERAL: NAD, A&Ox3 HEAD: Normocephalic. NECK: Supple, trachea midline. No lymphadenopathy. EYES: No scleral icterus. No injection or drainage. CARDIOVASCULAR: Regular rate and tachycardic rhythm without murmurs, gallops, or rubs. RESPIRATORY: Breath sounds equal bilaterally. No accessory muscle use. Tachypnea GASTROINTESTINAL: Abdomen soft, non-tender, nondistended. MUSCULOSKELETAL: No cyanosis, or edema. SKIN: Warm and dry. NEURO: No focal neurological deficitis. A/P Problem List: (1) Pneumonia ICD Code: J18.9 - Pneumonia, unspecified organism Status: Acute (2) Sepsis ICD Code: A41.9 - Sepsis, unspecified organism Status: Acute (3) Pleural effusion ICD Code: J90 - Pleural effusion, not elsewhere classified Status: Acute (4) Lung mass ICD Code: R91.8 - Other nonspecific abnormal finding of lung field Status: Acute (5) Metastatic disease ICD Code: C79.9 - Secondary malignant neoplasm of unspecified site Status: Acute (6) Shortness of breath ICD Code: R06.02 - Shortness of breath Status: Acute (7) Hyponatremia ICD Code: E87.1 - Hypo-osmolality and hyponatremia Status: Acute Assessment and Plan Assessment and Plan 71 years old female admitted secondary to acute respiratory distress with lung mass and evidence of metastasis Diffuse metastatic disease Pleural effusion Masses at left neck,back mass, vulvar mass Evaluating for lymphoma Plan for biopsy today Acute respiratory distress Pneumonia Continue vancomycin Continue cefepime Follow on pulse oximetry Continue IV steroids Continue duo nebs Hyponatremia 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
[2017-04-08] MEDS ORDERED: LACTATED RINGER'S 1000 ML INJ 1,000 ML IV ONE (12:00)
[2017-04-08] MEDS ORDERED: ONDANSETRON HCL 4 MG/2 ML VIAL IV PUSH ONE (12:00)
[2017-04-08] MEDS ORDERED: PROPOFOL 200 MG/20 ML AMP IV ONE (12:00)
[2017-04-08] MEDS ORDERED: PHENYLEPH/NS 1000 MCG/10 ML SYR IV ONE (12:00)
[2017-04-08] MEDS ORDERED: BUPIVACAINE/EPINEPHRINE 0.25% 50 ML VIAL ONE (12:04)
[2017-04-08] MEDS ORDERED: HEPARIN SODIUM - SQ 10,000 UNITS/ML VIAL ONE (12:04)
[2017-04-08] MEDS ORDERED: DO NOT ADM ANY ANTICOAGULANT DRUGS PRN ×2 (13:48)
[2017-04-08] MEDS ORDERED: MIDAZOLAM HCL 2 MG/2 ML VIAL ONE (13:57)
[2017-04-08] MEDS ORDERED: LACTATED RINGER'S 1000 ML INJ 1,000 ML IV SCH (14:00)
--- NOTE | 2017-04-08 15:19 | PD.ONC.PN ---
Subjective Subjective Remarks doing well post op. no complaints. Objective Data Date Time Temp Pulse Resp B/P (MAP) Pulse Ox O2 Delivery O2 Flow Rate FiO2 04/08/17 12:00 106 04/08/17 12:00 98.4 98 22 159/71 (100) 97 04/08/17 11:00 101 21 103/58 (73) 95 04/08/17 10:00 106 04/08/17 10:00 99 23 102/59 (73) 96 04/08/17 09:00 102 23 108/59 (75) 95 04/08/17 08:00 96 22 112/57 (75) 91 04/08/17 08:00 106 04/08/17 08:00 106 22 112/57 (75) 97 04/08/17 07:39 96 Nasal Cannula 2.00 04/08/17 06:00 84 04/08/17 04:00 98.4 93 24 97/63 (74) 74 04/08/17 04:00 93 04/08/17 02:00 86 04/08/17 00:00 98.8 99 21 107/59 (75) 97 04/08/17 00:00 99 04/07/17 22:00 114 04/07/17 21:30 96 Nasal Cannula 2.00 04/07/17 20:00 98.8 112 25 115/59 (77) 97 04/07/17 20:00 112 04/07/17 18:00 115 04/07/17 16:00 120 04/07/17 16:00 98.6 120 22 94/50 (65) 97 04/08/17 04/08/17 04/08/17 06:59 14:59 22:59 Intake Total 500 ml Output Total 505 ml Balance -5 ml Result Diagram: 04/06/17 1230 04/06/17 0853 Culture Results Microbiology Date/Time Source Procedure Growth Status 04/05/17 17:20 Blood Peripheral Aerobic Blood Culture - Preliminary NO GROWTH IN 3 DAYS Resulted 04/05/17 17:20 Blood Peripheral Anaerobic Blood Culture - Preliminary NO GROWTH IN 3 DAYS Resulted 04/05/17 17:05 Blood Peripheral Aerobic Blood Culture - Preliminary NO GROWTH IN 3 DAYS Resulted 04/05/17 17:05 Blood Peripheral Anaerobic Blood Culture - Preliminary NO GROWTH IN 3 DAYS Resulted 04/05/17 19:35 Fluid Pleural Fluid Gram Stain - Final Complete 04/05/17 19:35 Fluid Pleural Fluid Body Fluid Culture - Final NO GROWTH IN 72 HRS.--AEROBICALLY OR ... Complete Administered Medications Medications (Trade) Dose Ordered Sig/Jaspal Route PRN Reason Start Time Stop Time Status Last Admin Dose Admin Cefepime HCl 1000 mg/Sodium Chloride 100 ml @ 200 mls/hr Q12H IV 04/06/17 09:00 04/08/17 11:15 Miscellaneous Information 1 Q361D XX 04/05/17 21:30 04/05/17 21:30 Chlorhexidine Gluconate (Chlorhexidine 2% Cloth) 3 pack Taper DAILY@04 TOP 04/06/17 04:00 04/02/18 03:59 04/08/17 04:00 Sodium Chloride 1,000 ml @ 42 mls/hr [id number] IV 04/05/17 21:18 04/07/17 21:57 Sodium Chloride (NS Flush) 2 ml BID IV FLUSH 04/06/17 09:00 04/08/17 09:00 Senna/Docusate Sodium (Jenelle-Colace) 1 tab BID PO 04/06/17 09:00 04/07/17 21:59 Zolpidem Tartrate (Ambien) 5 mg HS PRN PO SLEEP 04/07/17 14:15 04/07/17 22:00 Methylprednisolone Sodium Succinate (SoluMEDROL INJ) 60 mg Q6HR IV PUSH 04/07/17 21:00 04/08/17 12:00 Pantoprazole Sodium (Protonix) 40 mg DAILY PO 04/07/17 15:00 04/08/17 09:00 Vancomycin HCl 1250 mg/Sodium Chloride 262.5 ml @ 250 mls/hr Q12H IV 04/07/17 22:00 04/08/17 10:00 Albuterol/ Ipratropium (Duoneb Neb) 1 ampule Q6HR NEB NEB 04/07/17 15:00 04/08/17 07:37 Lactated Ringer's 1,000 ml @ 40 mls/hr Q24H IV 04/08/17 14:00 04/08/17 16:00 04/08/17 13:48 Objective Remarks GENERAL: Well-nourished, well-developed patient. SKIN: Warm and dry. HEAD: Normocephalic. EYES: No scleral icterus. No injection or drainage. NECK: Supple, trachea midline. No JVD or lymphadenopathy. LYMPHATIC: left neck mass CARDIOVASCULAR: Regular rate and rhythm without murmurs. RESPIRATORY: decreased sounds left lung GASTROINTESTINAL: Abdomen soft, non-tender, nondistended. EXTREMITIES: No cyanosis, or edema. MUSCULOSKELETAL: Adequate muscle tone. NEUROLOGICAL: No obvious focal deficit. Awake, alert, and oriented x3. PSYCHIATRIC: Appropriate mood and affect; insight and judgment normal. now has port right chest wall and lesion from back has been removed. Assessment/Plan Plan 1: has had bx of mass over back and ct of thorax. will do ct of abd and pelvis to complete radiographic staging 2: can go to floor tomorrow if stable. would send to oncology floor as it is likely she will receive chemotherapy. 3: she is on large doses of steroids and would like to decrease steroids and will probably be able to stop antibiotics soon as it appears that her problem is explained by malignancy and not infection or malignancy and infection Cricket Barajas MD Apr 08, 2017 15:19
--- NOTE | 2017-04-08 15:47 | RADRPT ---
EXAM DATE/TIME: 04/08/2017 14:20 [facility] COMPARISON: CHEST SINGLE AP, April 05, 2017, 17:08. INDICATIONS : Post port placement, no chest pain, no shortness of breath MEDICAL HISTORY : Cerebrovascular disease. lung mass SURGICAL HISTORY : None. ENCOUNTER: Initial ACUITY: 1 day PAIN SCORE: 0/10 LOCATION: Bilateral chest FINDINGS: There is complete consolidation involving the left hemithorax. A large loculated effusion is seen mos tly at the apical region. Consolidation of the left lung with air bronchogram formation. Right lung i s clear. Heart is mildly enlarged. A scoliotic spine. Power port overlies the right chest. No pneumot horax. CONCLUSION: 1. Power port in good position. No pneumothorax. 2. Complete opacification of the left lung secondary to effusion and infiltrate. Vadim Fisher Jr., MD on April 08, 2017 at 15:44 Board Certified Radiologist. This report was verified electronically.
[2017-04-08 17:32] LABS: BICARBONATE 26.5 MEQ/L (21.0-32.0); HEMATOCRIT 25.5 % (35.0-46.0); MEAN CELL VOLUME 82.2 FL (80.0-100.0); MEAN CORPUSCULAR HEMOGLOBIN 28.3 PG (27.0-34.0); MEAN CORPUSCULAR HGB CONC 34.4 % (32.0-36.0); PLATELET COUNT 342 TH/MM3 (150-450); POTASSIUM 3.5 MEQ/L (3.5-5.1); RED BLOOD COUNT 3.11 MIL/MM3 (4.00-5.30); RED CELL DISTRIBUTION WIDTH 16.2 % (11.6-17.2); REVIEW FLAG FINAL; WHITE BLOOD COUNT 29.1 TH/MM3 (4.0-11.0)
[2017-04-08] MEDS ORDERED: methylPREDNISolone SOD SUCC 40 MG/1 ML VIAL IV PUSH SCH (21:00)
[2017-04-08] MEDS: ZOLPIDEM TARTRATE 5 MG TAB PO PRN (23:40)
[2017-04-09] VITALS (15 sets, daily range): BP systolic 94–137; BP diastolic 50–64; PULSE 70–110; RESP 18–22; TEMP 97–98.7; O2SAT 95–100
[2017-04-09] MEDS: RESP: ALBUTEROL 2.5 MG/IPRATROPIUM 0.5 MG NEB (SCH) NEB ×4 (03:26→20:22)
[2017-04-09] MEDS ORDERED: DIATRIZOATE MEGLUM/DIATRIZOATE SOD 9 ML CUP PO ONE (06:00)
[2017-04-09 07:11] LABS: BICARBONATE 24.8 MEQ/L (21.0-32.0); POTASSIUM 3.7 MEQ/L (3.5-5.1)
[2017-04-09] MEDS: SODIUM CHLORIDE 0.9% FLUSH 10 ML FLUSH IV FLUSH SCH ×2 (09:00→20:45)
[2017-04-09] MEDS: DOCUSATE SODIUM 50 MG/SENNA 8.6 MG TAB PO SCH ×2 (09:00→20:45)
[2017-04-09] MEDS: CEFEPIME INJ 1,000 MG in SODIUM CHLORIDE 0.9% INJ 100 ML IV SCH ×2 (09:00→20:44)
[2017-04-09] MEDS: PANTOPRAZOLE SOD 40 MG DELAYED RELEASE TAB PO SCH (09:00)
--- NOTE | 2017-04-09 09:20 | PD.ONC.PN ---
Subjective Subjective Remarks Afebrile SOB much improved Unable to tell if the left-sided neck mass is getting smaller Objective Data Date Time Temp Pulse Resp B/P (MAP) Pulse Ox O2 Delivery O2 Flow Rate FiO2 04/09/17 08:53 100 Nasal Cannula 1.50 04/09/17 08:00 110 04/09/17 08:00 98.0 97 22 102/57 (72) 95 04/09/17 06:00 79 04/09/17 04:00 98.0 86 20 96/53 (67) 95 04/09/17 04:00 79 04/09/17 02:00 74 04/09/17 00:00 74 04/09/17 00:00 97.0 70 18 94/50 (65) 96 04/08/17 22:00 102 04/08/17 20:24 94 Nasal Cannula 2.00 04/08/17 20:00 97.3 97 22 86/53 (64) 95 04/08/17 20:00 102 04/08/17 18:00 106 04/08/17 17:00 100 26 98/59 (72) 100 04/08/17 16:45 89 21 102/57 (72) 98 04/08/17 16:30 91 26 101/55 (70) 99 04/08/17 16:15 90 25 100/56 (71) 97 04/08/17 16:00 91 25 92/52 (65) 97 04/08/17 16:00 98.6 93 22 98/59 (72) 96 04/08/17 16:00 106 04/08/17 15:45 96 20 99/58 (72) 98 04/08/17 15:30 94 19 101/58 (72) 97 04/08/17 15:15 95 20 107/55 (72) 96 04/08/17 15:03 104 26 120/65 (83) 92 04/08/17 15:00 97 21 95 04/08/17 14:42 98 30 101/58 (72) 91 04/08/17 14:30 97.5 99 22 96/55 (69) 99 Nasal Cannula 2 04/08/17 14:15 94 21 97/52 (67) 98 Nasal Cannula 2 04/08/17 14:00 92 16 94/53 (67) 99 Nasal Cannula 3 04/08/17 14:00 106 8/28/17 13:47 97.5 100 16 102/53 (69) 98 Nasal Cannula 3 04/08/17 12:00 106 04/08/17 12:00 98.4 98 22 159/71 (100) 97 04/08/17 11:00 101 21 103/58 (73) 95 04/08/17 11:00 101 21 103/58 (73) 95 04/08/17 10:00 99 23 102/59 (73) 96 04/08/17 10:00 106 04/08/17 10:00 99 23 102/59 (73) 96 04/09/17 04/09/17 04/09/17 07:00 15:00 23:00 Intake Total 1250 ml Output Total 500 ml Balance 750 ml Result Diagram: 04/08/17 1643 04/09/17 0609 Laboratory Results Laboratory Tests Test 04/08/17 16:43 04/09/17 06:09 White Blood Count 29.1 TH/MM3 Red Blood Count 3.11 MIL/MM3 Hemoglobin 8.8 GM/DL Hematocrit 25.5 % Mean Corpuscular Volume 82.2 FL Mean Corpuscular Hemoglobin 28.3 PG Mean Corpuscular Hemoglobin Concent 34.4 % Red Cell Distribution Width 16.2 % Platelet Count 342 TH/MM3 Mean Platelet Volume 7.3 FL Blood Urea Nitrogen 13 MG/DL 18 MG/DL Creatinine 0.40 MG/DL 0.60 MG/DL Random Glucose 125 MG/DL 133 MG/DL Calcium Level 7.6 MG/DL 7.8 MG/DL Sodium Level 130 MEQ/L 133 MEQ/L Potassium Level 3.5 MEQ/L 3.7 MEQ/L Chloride Level 96 MEQ/L 98 MEQ/L Carbon Dioxide Level 26.5 MEQ/L 24.8 MEQ/L Anion Gap 8 MEQ/L 10 MEQ/L Estimat Glomerular Filtration Rate 158 ML/MIN 99 ML/MIN Administered Medications Medications (Trade) Dose Ordered Sig/Jaspal Route PRN Reason Start Time Stop Time Status Last Admin Dose Admin Cefepime HCl 1000 mg/Sodium Chloride 100 ml @ 200 mls/hr Q12H IV 04/06/17 09:00 04/08/17 23:43 Miscellaneous Information 1 Q361D XX 04/05/17 21:30 04/05/17 21:30 Chlorhexidine Gluconate (Chlorhexidine 2% Cloth) 3 pack Taper DAILY@04 TOP 04/06/17 04:00 04/02/18 03:59 04/08/17 04:00 Sodium Chloride 1,000 ml @ 42 mls/hr [id number] IV 04/05/17 21:18 04/07/17 21:57 Sodium Chloride (NS Flush) 2 ml BID IV FLUSH 04/06/17 09:00 04/08/17 23:43 Senna/Docusate Sodium (Jenelle-Colace) 1 tab BID PO 04/06/17 09:00 04/07/17 21:59 Zolpidem Tartrate (Ambien) 5 mg HS PRN PO SLEEP 04/07/17 14:15 04/08/17 23:40 Pantoprazole Sodium (Protonix) 40 mg DAILY PO 04/07/17 15:00 04/08/17 09:00 Vancomycin HCl 1250 mg/Sodium Chloride 262.5 ml @ 250 mls/hr Q12H IV 04/07/17 22:00 04/08/17 23:38 Albuterol/ Ipratropium (Duoneb Neb) 1 ampule Q6HR NEB NEB 04/07/17 15:00 04/09/17 08:53 Methylprednisolone Sodium Succinate (SoluMEDROL INJ) 40 mg Q12HR IV PUSH 04/08/17 21:00 04/08/17 21:00 Objective Remarks GENERAL: Older female sitting up in bed in no acute distress. She is currently drinking contrast preparation for CT abdomen and pelvis SKIN: Warm and dry. Mass to the R posterior scapula/back. [id number]-g-[id number] to right chest wall HEAD: Normocephalic. EYES: No injection or drainage. NECK: Lg left sided neck mass CARDIOVASCULAR: CM shows ST in the low 100's. RESPIRATORY: Lungs clear posteriorly. Breathing unlabored. GASTROINTESTINAL: Abdomen soft, non-tender, nondistended. GENITOURINARY: L sided labial/vulval mass. EXTREMITIES: No cyanosis, or edema. NEUROLOGICAL: No obvious focal deficit. Awake, alert, and oriented x3. Assessment/Plan Plan 1. The patient is going down this morning for CT of abdomen and pelvis to complete radiographic staging 2: Await biopsy results; we were hoping to see a decrease in the neck mass as this would lean towards a diagnosis of lymphoma given that she has been given high dose steroids since admission, however this is not in any way daignostic. 3: We will start weaning the steroids, as it appears her problems are likely due to the cancer and not infection. 4. Okay for transfer to oncology floor when cleared by primary team Attending Statement The exam, history, and the medical decision-making described in the above note were completed with the assistance of the mid-level provider. I reviewed and agree with the findings presented. I attest that I had a [id number] encounter with the patient on the same day, and personally performed and documented my assessment and findings in the medical record. ct of abdomen and pelvis show disease in the pelvis and adrenal glands. The distribution of mets is unusual and await the result of the bx before further speculating. will continue steroids but at lower dose as sob much better since steroid introduced. Yuliya Villatoro Apr 09, 2017 09:20 Cricket Barajas MD Apr 09, 2017 19:11
[2017-04-09] MEDS ORDERED: PHARMACY ORDERED LAB ONE (09:45)
[2017-04-09] MEDS: VANCOMYCIN INJ 1,250 MG in SODIUM CHLOR 0.9% 250 ML INJ 250 ML IV SCH (10:00)
[2017-04-09] MEDS: SODIUM CHLOR 0.9% 1000 ML INJ 1,000 ML IV SCH (11:20)
[2017-04-09] MEDS ORDERED: IOHEXOL 350 MG/ML 10 ML VIAL (for RAD DIAG) IVCONTRAST ONE (12:24)
--- NOTE | 2017-04-09 13:25 | RADRPT ---
EXAM DATE/TIME: 04/09/2017 11:30 This report includes an Addendum and supersedes previous reports for this exam. [facility] COMPARISON: CT PULMONARY ANGIOGRAM, April 05, 2017, 20:29. CHEST SINGLE AP, April 08, 2017, 14:20. INDICATIONS : Lung mass. Evaluate for metastatic disease. IV CONTRAST: 93 cc Omnipaque 350 (iohexol) IV ORAL CONTRAST: No oral contrast ingested. RADIATION DOSE: 20.58 CTDIvol (mGy) MEDICAL HISTORY : Lung mass SURGICAL HISTORY : None. ENCOUNTER: Initial ACUITY: 1 day PAIN SCALE: 4/10 LOCATION: abdomen TECHNIQUE: Volumetric scanning of the abdomen and pelvis was performed. Using automated exposure control and ad justment of the mA and/or kV according to patient size, radiation dose was kept as low as reasonably achievable to obtain optimal diagnostic quality images. DICOM format image data is available electro nically for review and comparison. FINDINGS: Consolidation air bronchograms noted in the left lung are appreciated consistent with findings on CT scan carcinoma of the lung. In the patient's abdomen, reveals intact bony struc tures. There is a 1.25 cm gallstone. The liver reveals a lobular contour but homogenous without defects co nsistent with hepatocellular disease, cirrhosis and normal spleen. There are multiple bilateral renal cysts but n o solid mass, no hydronephrosis or stone and the bladder appears normal. In the pelvis is a normal uterus. The panc reas is normal. Patient demonstrates the following significant abnormalities: Ascitic fluid in the pelvis. In the left pelvis there is a 4.3 cm complex solid mass suggestive of ovarian mass, possible ovarian carcinoma. Bilateral adrenal glands have masses on the right 1.6 on the left 1.3 cm in size highly suspect of re presenting metastatic disease. CONCLUSION: Patient demonstrates the following significant abnormalities: 1. Ascitic fluid in the pelvis. 2. In the left pelvis there is a 4.3 cm complex solid mass suggestive of ovarian mass, possible ovari an carcinoma. 3. Bilateral adrenal glands have masses on the right 1.6 on the left 1.3 cm in size highly suspect of representing metastatic disease. Ji Beard MD on April 09, 2017 at 12:32 Board Certified Radiologist. This report was verified electronically. Addendum. Typographical error which omitted a #4 above. 4) there is a 6.7 cm rounded somewhat lobular soft tissue mass below the symphysi s to the left with a low density center. This is a true mass and most likely represents a malignancy adjacent to the left vulva. Ji Beard MD on April 09, 2017 at 14:39 Board Certified Radiologist. This report was verified electronically.
--- NOTE | 2017-04-09 14:42 | HHI.PR ---
Subjective Remarks Respiratory status is stable. Patient tolerated back biopsy and right-sided port placement performed yesterday without any complications of tachycardia or worsening dyspnea. At this point she is medically stable for transfer out of ICU. Objective Vital Signs Date Time Temp Pulse Resp B/P (MAP) Pulse Ox O2 Delivery O2 Flow Rate FiO2 04/09/17 12:00 110 04/09/17 12:00 98.4 97 22 137/64 (88) 95 04/09/17 10:00 110 04/09/17 08:53 100 Nasal Cannula 1.50 04/09/17 08:00 110 04/09/17 08:00 98.0 97 22 102/57 (72) 95 04/09/17 06:00 79 04/09/17 04:00 98.0 86 20 96/53 (67) 95 04/09/17 04:00 79 04/09/17 02:00 74 04/09/17 00:00 74 04/09/17 00:00 97.0 70 18 94/50 (65) 96 04/08/17 22:00 102 04/08/17 20:24 94 Nasal Cannula 2.00 04/08/17 20:00 97.3 97 22 86/53 (64) 95 04/08/17 20:00 102 04/08/17 18:00 106 04/08/17 17:00 100 26 98/59 (72) 100 04/08/17 16:45 89 21 102/57 (72) 98 04/08/17 16:30 91 26 101/55 (70) 99 04/08/17 16:15 90 25 100/56 (71) 97 04/08/17 16:00 91 25 92/52 (65) 97 04/08/17 16:00 98.6 93 22 98/59 (72) 96 04/08/17 16:00 106 04/08/17 15:45 96 20 99/58 (72) 98 04/08/17 15:30 94 19 101/58 (72) 97 04/08/17 15:15 95 20 107/55 (72) 96 04/08/17 15:03 104 26 120/65 (83) 92 04/08/17 15:00 97 21 95 04/08/17 14:42 98 30 101/58 (72) 91 I/O 8/04/08/17 04/08/17 04/09/17 04/09/17 04/09/17 06:59 14:59 22:59 06:59 14:59 22:59 Intake Total 850 ml 705 ml 1250 ml Output Total 505 ml 450 ml 500 ml Balance 345 ml 255 ml 750 ml Intake Oral 0 ml 380 ml 100 ml IV Total 450 ml 325 ml 1150 ml Other 400 ml Output Urine Total 450 ml 500 ml Estimated Blood Loss 5 ml Other 500 ml # Voids 1 0 1 # Bowel Movements 1 Result Diagram: 04/08/17 1643 04/09/17 0609 Objective Remarks GENERAL: NAD, A&Ox3 HEAD: Normocephalic. NECK: Supple, trachea midline. No lymphadenopathy. EYES: No scleral icterus. No injection or drainage. CARDIOVASCULAR: Regular rate and tachycardic rhythm without murmurs, gallops, or rubs. RESPIRATORY: Breath sounds equal bilaterally. No accessory muscle use. Tachypnea GASTROINTESTINAL: Abdomen soft, non-tender, nondistended. MUSCULOSKELETAL: No cyanosis, or edema. SKIN: Warm and dry. NEURO: No focal neurological deficitis. A/P Problem List: (1) Pneumonia ICD Code: J18.9 - Pneumonia, unspecified organism Status: Acute (2) Sepsis ICD Code: A41.9 - Sepsis, unspecified organism Status: Acute (3) Pleural effusion ICD Code: J90 - Pleural effusion, not elsewhere classified Status: Acute (4) Lung mass ICD Code: R91.8 - Other nonspecific abnormal finding of lung field Status: Acute (5) Metastatic disease ICD Code: C79.9 - Secondary malignant neoplasm of unspecified site Status: Acute (6) Shortness of breath ICD Code: R06.02 - Shortness of breath Status: Acute (7) Hyponatremia ICD Code: E87.1 - Hypo-osmolality and hyponatremia Status: Acute Assessment and Plan Assessment and Plan 71 years old female admitted secondary to acute respiratory distress with lung mass and evidence of metastasis. Biopsy of back mass obtained on 04/08/17. Follow results. Continue oxygenation. Continue antibiotics. Continue to monitor blood work. CBC and BMP in the morning. 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
[2017-04-09 16:02] LABS: MEAN CELL VOLUME 82.4 FL (80.0-100.0); MEAN CORPUSCULAR HGB CONC 31.6 % (32.0-36.0); PLATELET COUNT 445 TH/MM3 (150-450); RED BLOOD COUNT 3.51 MIL/MM3 (4.00-5.30); RED CELL DISTRIBUTION WIDTH 15.8 % (11.6-17.2); WHITE BLOOD COUNT 30.6 TH/MM3 (4.0-11.0)
[2017-04-09 16:20] LABS: REVIEW FLAG FINAL
--- NOTE | 2017-04-09 16:44 | MP ---
cc: ALONSO ALSTON MD, RICHARD DATE OF SURGERY 04/08/2017 PREOPERATIVE DIAGNOSIS 1. Metastatic malignancy, lung cancer versus lymphoma. 2. Large subcutaneous back mass, likely metastatic lesion. POSTOPERATIVE DIAGNOSIS 1. Metastatic malignancy, lung cancer versus lymphoma. 2. Large subcutaneous back mass, likely metastatic lesion. PROCEDURE PERFORMED 1. Right subclavian Rdfzti-F-Cgej with intraoperative fluoroscopy. 2. Excisional biopsy subcutaneous mass right back. SURGEON Ning Alston MD ANESTHESIA TIVA with local COMPLICATIONS None. INDICATIONS FOR PROCEDURE Ms. Peterson is a very pleasant 71 year old patient of Dr. Cricket Barajas who presented with a large left neck lesion, a left vulvar lesion and a large back lesion. She underwent imaging and was found to have a large left lung mass. Dr. Barajas was concerned about a possible small cell lung cancer versus a lymphoma. He requested biopsy of the back mass as this is these easiest one to access. He also requested we then place an Bastyc-K-Copn for pending chemotherapy. This was all discussed with the patient and she was agreeable. PROCEDURE IN DETAIL The patient was identified, brought to the operating room, placed supine on the operating table. After adequate IV sedation was achieved, the anterior chest and neck was prepped and draped in standard surgical fashion. 0.25% Marcaine injected into the skin and subcutaneous tissue in the right infraclavicular area. An 18 gauge needle was then used to access the right subclavian vein without difficulty. Guidewire was advanced and followed to the level of the superior vena cava using direct fluoroscopy. Next, a subcutaneous pocket was fashioned over the right anterior chest using a combination of blunt and sharp dissection. An introducer was then placed over the guidewire and again followed with fluoroscopy into the superior vena cava. Guidewire was then removed. Catheter was advanced about 15 cm which placed it at the junction of the right atrium and superior vena cava. The introducer was then removed. The catheter was attached to the port with a locking device. Port was then tested and found to have excellent blood return, easy ability to flush. Port was placed into the subcutaneous pocket and was secured with a 2-0 Prolene suture to the pectoralis fascia. Subcutaneous pocket was then infiltrated with additional local anesthetic and then closed in two layers using a 3-0 and 4-0 Vicryl. Sterile dressings were applied. The patient was then turned up into left lateral decubitus position with appropriate padding for hips, knees, shoulders and ankles. The right lower back mass was identified and prepped and draped in standard surgical fashion. 0.25% Marcaine was injected. A transverse incision was made directly overlying the mass. Subcutaneous tissue was dissect with electrocautery Bovie. Dissecting down to the mass which was a firm white mass using a scalpel, several large pieces of the mass were excised. Two were sent in formalin for permanent and one was sent fresh in saline. The tumor bleeding was then controlled with electrocautery Bovie. Wound was irrigated normal saline solution. The biopsy cavity was then filled with Surgicel and the skin was closed in two layers using a 3-0 and 4-0 Vicryl. The patient then returned to the supine position and awakened. She was brought to recovery in stable condition. MD RENARD Suarez/ /4:01 PM /4:34 PM
[2017-04-09] MEDS: ZOLPIDEM TARTRATE 5 MG TAB PO PRN (20:43)
[2017-04-09] MEDS: ACETAMINOPHEN/HYDROcodone 325 MG/5 MG TAB PO PRN (20:43)
[2017-04-09] MEDS: methylPREDNISolone SOD SUCC 40 MG/1 ML VIAL IV PUSH SCH (20:44)
[2017-04-10] VITALS (13 sets, daily range): BP systolic 106–127; BP diastolic 58–62; PULSE 97–116; RESP 17–20; TEMP 96.3–97.3; O2SAT 94–100
[2017-04-10] MEDS: ACETAMINOPHEN/HYDROcodone 325 MG/5 MG TAB PO PRN ×3 (01:10→20:49)
[2017-04-10] MEDS: CHLORHEXIDINE GLUCONATE 2 % 1 PACK (2 CLOTHS) TOP SCH ×2 (03:53→04:00)
[2017-04-10] MEDS: RESP: ALBUTEROL 2.5 MG/IPRATROPIUM 0.5 MG NEB (SCH) NEB ×4 (04:00→20:01)
[2017-04-10] MEDS: SODIUM CHLORIDE 0.9% FLUSH 10 ML FLUSH IV FLUSH SCH ×2 (09:00→20:49)
[2017-04-10] MEDS: methylPREDNISolone SOD SUCC 40 MG/1 ML VIAL IV PUSH SCH ×2 (09:36→20:49)
[2017-04-10] MEDS: CEFEPIME INJ 1,000 MG in SODIUM CHLORIDE 0.9% INJ 100 ML IV SCH (09:36)
[2017-04-10] MEDS: PANTOPRAZOLE SOD 40 MG DELAYED RELEASE TAB PO SCH (09:36)
[2017-04-10] MEDS: DOCUSATE SODIUM 50 MG/SENNA 8.6 MG TAB PO SCH ×2 (09:36→20:49)
--- NOTE | 2017-04-10 10:24 | PD.ONC.PN ---
Subjective Subjective Remarks Afebrile Breathing is about the same Pt somewhat anxious about swallowing pills Objective Data Date Time Temp Pulse Resp B/P (MAP) Pulse Ox O2 Delivery O2 Flow Rate FiO2 04/10/17 09:36 94 Nasal Cannula 3.00 04/10/17 04:05 104 04/10/17 04:04 102 04/10/17 04:00 97.0 99 17 114/60 (78) 98 04/10/17 01:55 16 04/10/17 01:32 100 04/10/17 00:00 97.0 104 18 120/61 (80) 97 04/09/17 20:25 98 Nasal Cannula 3.00 04/09/17 20:05 109 04/09/17 20:00 97.2 104 18 123/58 (79) 99 04/09/17 18:55 97.1 109 18 120/58 (78) 97 04/09/17 16:00 98.7 103 22 128/64 (85) 95 04/09/17 16:00 110 04/09/17 14:55 100 Nasal Cannula 1.50 04/09/17 14:00 110 04/09/17 12:00 110 04/09/17 12:00 98.4 97 22 137/64 (88) 95 04/10/17 04/10/17 04/10/17 06:59 14:59 22:59 Output Total 200 ml Balance -200 ml Result Diagram: 04/09/17 0609 04/09/17 0609 Laboratory Results Laboratory Tests Test 04/09/17 10:50 Vancomycin Level Trough 29.4 MCG/ML Administered Medications Medications (Trade) Dose Ordered Sig/Jaspal Route PRN Reason Start Time Stop Time Status Last Admin Dose Admin Cefepime HCl 1000 mg/Sodium Chloride 100 ml @ 200 mls/hr Q12H IV 04/06/17 09:00 04/10/17 09:36 Miscellaneous Information 1 Q361D XX 04/05/17 21:30 04/05/17 21:30 Chlorhexidine Gluconate (Chlorhexidine 2% Cloth) 3 pack Taper DAILY@04 TOP 04/06/17 04:00 04/02/18 03:59 04/08/17 04:00 Sodium Chloride 1,000 ml @ 42 mls/hr [id number] IV 04/05/17 21:18 04/09/17 11:20 Sodium Chloride (NS Flush) 2 ml BID IV FLUSH 04/06/17 09:00 04/09/17 20:45 Acetaminophen/ Hydrocodone Bitart ([place] 5-325 Mg) 1 tab Q4H PRN PO PAIN SCALE 3 TO 5 04/05/17 21:30 04/10/17 01:10 Morphine Sulfate (Morphine Inj) 2 mg Q3H PRN IV Pain 6-10 04/05/17 21:30 04/09/17 16:37 Senna/Docusate Sodium (Jenelle-Colace) 1 tab BID PO 04/06/17 09:00 04/10/17 09:36 Zolpidem Tartrate (Ambien) 5 mg HS PRN PO SLEEP 04/07/17 14:15 04/09/17 20:43 Pantoprazole Sodium (Protonix) 40 mg DAILY PO 04/07/17 15:00 04/10/17 09:36 Vancomycin HCl 1250 mg/Sodium Chloride 262.5 ml @ 250 mls/hr Q12H IV 04/07/17 22:00 Future Hold 04/09/17 10:00 Albuterol/ Ipratropium (Duoneb Neb) 1 ampule Q6HR NEB NEB 04/07/17 15:00 04/10/17 09:35 Methylprednisolone Sodium Succinate (SoluMEDROL INJ) 20 mg Q12HR IV PUSH 04/09/17 21:00 04/10/17 09:36 Objective Remarks GENERAL: Older female sitting up in bed in no acute distress. SKIN: Warm and dry. Mass to the R posterior scapula/back. Yjnabp-o-Udiz to right chest wall HEAD: Normocephalic. EYES: No injection or drainage. NECK: Lg left sided neck mass CARDIOVASCULAR: +S1/S2. Slightly tachycardic RESPIRATORY: Lungs clear posteriorly. Breathing unlabored. On 3L NC. GASTROINTESTINAL: Abdomen soft, non-tender, nondistended. GENITOURINARY: L sided labial/vulval mass. EXTREMITIES: No cyanosis, or edema. NEUROLOGICAL: No obvious focal deficit. Awake, alert, and oriented x3. Assessment/Plan Plan 1. In order to simplify things, we will switch IV cefepime to by mouth Levaquin. Anticipate tomorrow we will also switch the IV soluMedrol to oral prednisone. The patient is concerned about swallowing, however we will need to evaluate her swallowing well she is still inpatient as opposed to sending her home and then finding out she can not swallow her medication. 2. CT abdomen and pelvis showed bilateral adrenal gland masses as well as an ovarian mass. 3. Await pathology report. It is very likely that we will start chemotherapy while she is inpatient given the rapidly growing neck mass. It will be very interesting to find out what this is. Attending Statement The exam, history, and the medical decision-making described in the above note were completed with the assistance of the mid-level provider. I reviewed and agree with the findings presented. I attest that I had a [id number] encounter with the patient on the same day, and personally performed and documented my assessment and findings in the medical record. I have spoken with Dr. 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 I have request staining for PDL1, EGFR, ALK, BRAF, ROSS. I was hoping for a lymphoma. Will talk with her tomorrow about treatment but the pathology does not romelia well. Yuliya Villatoro Apr 10, 2017 10:24 Cricket Barajas MD Apr 10, 2017 18:43
[2017-04-10 10:53] LABS: BICARBONATE 25.6 MEQ/L (21.0-32.0); POTASSIUM 4.2 MEQ/L (3.5-5.1)
--- NOTE | 2017-04-10 11:32 | HHI.PR ---
Subjective Remarks Follow-up for multiple rapidly progressing mass involving neck, back, lung and genital area. Patient is currently doing well sitting in her chair. She underwent excisional biopsy of the mass on her back yesterday. She is tolerating food okay. No fever or chills. Objective Vitals Vital Signs Date Time Temp Pulse Resp B/P (MAP) Pulse Ox O2 Delivery O2 Flow Rate FiO2 04/10/17 09:36 94 Nasal Cannula 3.00 04/10/17 07:50 96.4 97 20 127/62 (83) 98 04/10/17 04:05 104 04/10/17 04:04 102 04/10/17 04:00 97.0 99 17 114/60 (78) 98 04/10/17 01:55 16 04/10/17 01:32 100 04/10/17 00:00 97.0 104 18 120/61 (80) 97 04/09/17 20:25 98 Nasal Cannula 3.00 04/09/17 20:05 109 04/09/17 20:00 97.2 104 18 123/58 (79) 99 04/09/17 18:55 97.1 109 18 120/58 (78) 97 04/09/17 16:00 98.7 103 22 128/64 (85) 95 04/09/17 16:00 110 04/09/17 14:55 100 Nasal Cannula 1.50 04/09/17 14:00 110 04/09/17 12:00 110 04/09/17 12:00 98.4 97 22 137/64 (88) 95 I/O 04/09/17 04/09/17 04/09/17 04/10/17 04/10/17 04/10/17 07:00 15:00 23:00 07:00 15:00 23:00 Intake Total 1250 ml 362.5 ml 774 ml Output Total 500 ml 650 ml 200 ml Balance 750 ml 362.5 ml 124 ml -200 ml Intake Oral 100 ml 480 ml IV Total 1150 ml 362.5 ml 294 ml Output Urine Total 500 ml 650 ml 200 ml # Voids 1 2 Result Diagram: 04/09/17 0609 04/10/17 0837 Imaging Last Impressions Abdomen/Pelvis CT 04/09/17 0600 Signed Impressions: Service Date/Time: Sunday, April 09, 2017 11:30 - CONCLUSION: Patient demonstrates the following significant abnormalities: 1. Ascitic fluid in the pelvis. 2. In the left pelvis there is a 4.3 cm complex solid mass suggestive of ovarian mass, possible ovarian carcinoma. 3. Bilateral adrenal glands have masses on the right 1.6 on the left 1.3 cm in size highly suspect of representing metastatic disease. Ji Beard MD Chest X-Ray 04/08/17 0000 Signed Impressions: Service Date/Time: Saturday, April 08, 2017 14:20 - CONCLUSION: 1. Power port in good position. No pneumothorax. 2. Complete opacification of the left lung secondary to effusion and infiltrate. Vadim Fisher Jr., MD Thoracentesis Ultrasound 04/05/17 0000 Signed Impressions: Service Date/Time: Wednesday, April 05, 2017 19:01 - CONCLUSION: Uncomplicated ultrasound guided left thoracentesis. Vadim Fisher Jr., MD CT Angiography 04/05/17 0000 Signed Impressions: Service Date/Time: Wednesday, April 05, 2017 20:29 - CONCLUSION: 1. Large, malignant appearing mass of the left lower lobe. The mass involves the pleural and encases/obliterates the left lower lobe pulmonary artery. There is no pulmonary embolus. 2. Metastatic mediastinal lymphadenopathy. 3. 11 mm right lower lobe pulmonary nodule and a few scattered sub-4 mm pulmonary nodules of the left upper lobe will need attention on followup imaging. 4. Reexpansion edema the left upper lobe. The patient is status post left-sided thoracentesis. No pneumothorax. 5. Coronary artery calcification. 6. Nonspecific lobular contour of the liver. Cirrhosis and metastatic disease would be in the differential. There is also fullness of the left adrenal gland and apparent thickening of the visualized stomach. Kyler Parisi MD Objective Remarks GENERAL: Alert, oriented 3, NAD. SKIN: Warm and dry. HEAD: Normocephalic. A large mass protruding from her left jaw. EYES: No scleral icterus. No injection or drainage. NECK: Supple, trachea midline. No JVD or lymphadenopathy. CARDIOVASCULAR: Regular rate and rhythm without murmurs, gallops, or rubs. RESPIRATORY: Breath sounds equal bilaterally. No accessory muscle use. GASTROINTESTINAL: Abdomen soft, non-tender, nondistended. MUSCULOSKELETAL: No cyanosis, or edema. BACK: Nontender without obvious deformity. No CVA tenderness. Right side of the mid back shows a mass status post biopsy. Procedures 04/05- left thoracentesis 04/08/2017 PROCEDURE PERFORMED 1. Right subclavian Gmudox-[id number]-Cdym with intraoperative fluoroscopy. 2. Excisional biopsy subcutaneous mass right back. A/P Problem List: (1) Sepsis ICD Code: A41.9 - Sepsis, unspecified organism Status: Acute (2) Metastatic disease ICD Code: C79.9 - Secondary malignant neoplasm of unspecified site Status: Acute (3) Pleural effusion ICD Code: J90 - Pleural effusion, not elsewhere classified Status: Acute (4) Hyponatremia ICD Code: E87.1 - Hypo-osmolality and hyponatremia Status: Acute Assessment and Plan 71 years old female admitted secondary to acute respiratory distress with lung mass and evidence of metastasis. Biopsy of back mass obtained on 04/08/17. Follow results. Continue oxygenation. Continue antibiotics. Continue to monitor blood work. CBC and BMP in the morning. Diffuse metastatic disease Pleural effusion Masses at left neck,back mass, vulvar mass s/p biopsy of the back mass. Follow pathology report. Acute respiratory distress Pneumonia Possibly post-obstructive pneumonia. Will discontinue vancomycin and cefepime. Start patient on Levaquin 750 mg by mouth daily. We can probably continue by mouth antibiotics for 5 more days. Hyponatremia Sodium improved from 121 on 04/05/2017 to 134 on 04/10/2017. Possibly SIADH vs from poor oral intake. Will lift fluid restriction. If we notice downward trend of Sodium, we will consider fluid restriction. Full code. SCDs. Problem Qualifiers (1) Sepsis: Qualified Codes: A41.9 - Sepsis, unspecified organism Corie Malone DO Apr 10, 2017 11:32
[2017-04-10 13:25] LABS: HEMATOCRIT 28.1 % (35.0-46.0); MEAN CELL VOLUME 83.1 FL (80.0-100.0); MEAN CORPUSCULAR HEMOGLOBIN 27.2 PG (27.0-34.0); MEAN CORPUSCULAR HGB CONC 32.7 % (32.0-36.0); PLATELET COUNT 330 TH/MM3 (150-450); RED BLOOD COUNT 3.38 MIL/MM3 (4.00-5.30); RED CELL DISTRIBUTION WIDTH 16.6 % (11.6-17.2); WHITE BLOOD COUNT 25.1 TH/MM3 (4.0-11.0)
[2017-04-10 13:27] LABS: REVIEW FLAG FINAL
[2017-04-10] MEDS: LEVOFLOXACIN 750 MG TAB PO SCH (13:30)
[2017-04-10] MEDS: ZOLPIDEM TARTRATE 5 MG TAB PO PRN (20:49)
[2017-04-10] MEDS: SODIUM CHLOR 0.9% 1000 ML INJ 1,000 ML IV SCH (20:52)
[2017-04-11] VITALS (10 sets, daily range): BP systolic 106–154; BP diastolic 60–80; PULSE 98–124; RESP 16–18; TEMP 96.7–97.2; O2SAT 96–100
[2017-04-11] MEDS: CHLORHEXIDINE GLUCONATE 2 % 1 PACK (2 CLOTHS) TOP SCH (04:00)
[2017-04-11] MEDS: RESP: ALBUTEROL 2.5 MG/IPRATROPIUM 0.5 MG NEB (SCH) NEB ×2 (05:22→10:00)
[2017-04-11] MEDS: ACETAMINOPHEN/HYDROcodone 325 MG/5 MG TAB PO PRN ×2 (06:27→11:57)
[2017-04-11] MEDS: SODIUM CHLORIDE 0.9% FLUSH 10 ML FLUSH IV FLUSH SCH ×2 (09:00→21:23)
[2017-04-11] MEDS: methylPREDNISolone SOD SUCC 40 MG/1 ML VIAL IV PUSH SCH (09:39)
[2017-04-11] MEDS: LEVOFLOXACIN 750 MG TAB PO SCH (09:40)
[2017-04-11] MEDS: PANTOPRAZOLE SOD 40 MG DELAYED RELEASE TAB PO SCH (09:40)
[2017-04-11] MEDS: DOCUSATE SODIUM 50 MG/SENNA 8.6 MG TAB PO SCH ×2 (09:40→21:00)
--- NOTE | 2017-04-11 11:18 | PD.ONC.PN ---
Subjective Subjective Remarks Patient reports her breathing is about the same She is anxious to start chemotherapy Reviewed the pathology results Objective Data Date Time Temp Pulse Resp B/P (MAP) Pulse Ox O2 Delivery O2 Flow Rate FiO2 04/11/17 07:27 16 04/11/17 07:25 97.1 110 16 112/60 (77) 98 04/11/17 04:11 103 04/11/17 04:00 96.7 120 18 154/80 (104) 98 04/11/17 00:08 104 04/11/17 00:00 97.1 98 17 136/70 (92) 96 04/10/17 20:10 107 04/10/17 20:01 94 Nasal Cannula 3.00 04/10/17 20:00 96.3 108 18 106/59 (75) 100 04/10/17 15:50 96.9 101 20 122/58 (79) 97 04/10/17 12:00 102 04/10/17 11:50 97.3 116 20 125/58 (80) 100 Result Diagram: 04/10/17 1255 04/10/17 0837 Laboratory Results Laboratory Tests Test 04/10/17 12:55 White Blood Count 25.1 TH/MM3 Red Blood Count 3.38 MIL/MM3 Hemoglobin 9.2 GM/DL Hematocrit 28.1 % Mean Corpuscular Volume 83.1 FL Mean Corpuscular Hemoglobin 27.2 PG Mean Corpuscular Hemoglobin Concent 32.7 % Red Cell Distribution Width 16.6 % Platelet Count 330 TH/MM3 Mean Platelet Volume 7.7 FL Administered Medications Medications (Trade) Dose Ordered Sig/Jaspal Route PRN Reason Start Time Stop Time Status Last Admin Dose Admin Miscellaneous Information 1 Q361D XX 04/05/17 21:30 04/05/17 21:30 Chlorhexidine Gluconate (Chlorhexidine 2% Cloth) Taper DAILY@04 TOP 04/06/17 04:00 04/02/18 03:59 04/08/17 04:00 Sodium Chloride 1,000 ml @ 42 mls/hr [id number] IV 04/05/17 21:18 04/10/17 20:52 Sodium Chloride (NS Flush) 2 ml BID IV FLUSH 04/06/17 09:00 04/10/17 20:49 Acetaminophen/ Hydrocodone Bitart ([place] 5-325 Mg) 1 tab Q4H PRN PO PAIN SCALE 3 TO 5 04/05/17 21:30 04/11/17 06:27 Morphine Sulfate (Morphine Inj) 2 mg Q3H PRN IV Pain 6-10 04/05/17 21:30 04/09/17 16:37 Senna/Docusate Sodium (Jenelle-Colace) 1 tab BID PO 04/06/17 09:00 04/11/17 09:40 Zolpidem Tartrate (Ambien) 5 mg HS PRN PO SLEEP 04/07/17 14:15 04/10/17 20:49 Pantoprazole Sodium (Protonix) 40 mg DAILY PO 04/07/17 15:00 04/11/17 09:40 Albuterol/ Ipratropium (Duoneb Neb) 1 ampule Q6HR NEB NEB 04/07/17 15:00 04/11/17 05:22 Methylprednisolone Sodium Succinate (SoluMEDROL INJ) 20 mg Q12HR IV PUSH 04/09/17 21:00 04/11/17 09:39 Levofloxacin (Levaquin) 750 mg DAILY PO 04/10/17 13:00 04/15/17 12:59 04/11/17 09:40 Objective Remarks GENERAL: Older female sitting up in bed in no acute distress. SKIN: Warm and dry. Mass to the R posterior scapula/back. Ivgala-p-Tckk to right chest wall HEAD: Normocephalic. EYES: No injection or drainage. NECK: Lg left sided neck mass CARDIOVASCULAR: +S1/S2. Slightly tachycardic RESPIRATORY: Lungs clear posteriorly. Breathing unlabored. On 3L NC. GASTROINTESTINAL: Abdomen soft, non-tender, nondistended. GENITOURINARY: L sided labial/vulval mass. EXTREMITIES: No cyanosis, or edema. NEUROLOGICAL: No obvious focal deficit. Awake, alert, and oriented x3. Assessment/Plan Plan 1. Pathology has resulted and the tumor is a non-small cell adenocarcinoma consistent with a lung primary. However there is at least focal squamous differentiation. We would like to be aggressive with treatment and start the patient on chemotherapy with carboplatin and Taxol while inpatient. We have asked the nursing staff to do chemotherapy teaching and to sign consents. 2. We will switch the IV soluMedrol to prednisone in order to simplify things. 3. We will ask case management to evaluate the patient that she will likely need home O2 upon discharge. Attending Statement The exam, history, and the medical decision-making described in the above note were completed with the assistance of the mid-level provider. I reviewed and agree with the findings presented. I attest that I had a [id number] encounter with the patient on the same day, and personally performed and documented my assessment and findings in the medical record. We plan on treating with chemotherapy tomorrow with carboplatin AUC 5 and TAXOL 150mg/m2 which can be repeated every 3 weeks. It will be easy to determine response to treatment give the visible neck mass. She will be returning home and has an elderly father. Will need to have a support system in place. will ask physical therapy to start working with patient now as she walked into the hospital and must be ambulatory to return home. Yuliya Villatoro Apr 11, 2017 11:18 Cricket Barajas MD Apr 11, 2017 19:19
--- NOTE | 2017-04-11 12:10 | PD.CONS ---
Consult Service Palliative Care Consult Requested By Dr. Malone Primary Care Physician No Primary Care Physician Reason for Consultation a. To assist with evaluation and management of symptoms including: Pain b. To assist medical decision maker(s) with: better understanding of current medical conditions; weighing benefits/burdens of medical treatment options; making medical treatment decisions. HPI History of Present Illness Patient is a 71-year-old who 3 months ago noted a small nodule on the left side of the neck with some fullness, which has grown rapidly. She also has a mass/ fullness in the left vulva area. Patient has seen several physicians and apparently have some type of biopsy for possible head and neck cancer. She had one pending with Dr. Wetzel. Due to the increased growth of her neck mass, she presented to the ER. On 2016 CT of the thorax shows a large malignant appearing mass involving the left lower lobe extending to the pleura and encases and obliterates the left lower lobe pulmonary artery. PE was negative. There is movement this time no adenopathy. There is a 11 mm right lower lobe pulmonary nodule and a few scattered sub-4 mm pulmonary nodules involving the left upper lobe. Patient underwent a thoracentesis. Pathology of the pleural fluid was negative for malignant cells. In the meantime patient displays exertional shortness of breath and an enlarging mass on the left lobe of the lung, a mass in the right posterior back and a mass above the left vulva area, and a mass at at the left neck. 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 There is also noted focal squamous differentiation. Palliative Care was consulted for support. I have touch base with oncology before seeing patient. They are aware for now I will defer discussion of treatment and prognosis to them this early on. On my visit today I will address symptoms, advance directives and code status. Pt on my visit declines any pain or nausea. Introduce myself and the role of palliative care. She endorses she wants to start chemo therapy and looking forward to it. At first she endorse she was amenable to fill in health care surrogate. However after reviewing code status, she became anxious and upset and state "I do not want to go any further. I have not even started chemo yet. " She mentioned she does not want intubation, and would amenable to put that in her code status for now, but does not want to address anything further. She decline filling out the health care surrogate. She reluctantly was amenable for me to visit tomorrow. Function/Cognitive Trajectory fatigued, mass increasing in size on the neck. Review of Systems ROS Limitations: Clinical Condition Constitutional: COMPLAINS OF: Fatigue, Generalized weakness Ears, nose, mouth, throat: DENIES: Throat pain (but neck mass incrase in size.) Respiratory: COMPLAINS OF: Shortness of breath Past Family Social History Coded Allergies: No Known Allergies (Unverified , 04/05/17) Past Medical History PMH: History of alcoholism with cirrhosis Ulcer in her stomach Past Surgical History PAST SURGICAL HISTORY: Thoracentesis, biopsy of mass in the back Reported Medications Omeprazole Current Medications Medications (Trade) Dose Ordered Sig/Jaspal Route Start Time Stop Time Status Last Admin Miscellaneous Information 1 [id number] XX 04/05/17 21:30 04/05/17 21:30 (Chlorhexidine 2% Cloth) Taper DAILY@04 TOP 04/06/17 04:00 04/02/18 03:59 04/08/17 04:00 (Chlorhexidine 2% Cloth) 3 pack UNSCH PRN TOP 04/05/17 21:30 Sodium Chloride 1,000 ml @ 42 mls/hr [id number] IV 04/05/17 21:18 04/10/17 20:52 (NS Flush) 2 ml UNSCH PRN IV FLUSH 04/05/17 21:30 (NS Flush) 2 ml BID IV FLUSH 04/06/17 09:00 04/10/17 20:49 (Zofran Inj) 4 mg Q6H PRN IVP 04/05/17 21:30 (Tylenol) 650 mg Q6H PRN PO 04/05/17 21:30 (Dwight 5-325 Mg) 1 tab Q4H PRN PO 04/05/17 21:30 04/11/17 06:27 (Morphine Inj) 2 mg Q3H PRN IV 04/05/17 21:30 04/09/17 16:37 (Jenelle-Colace) 1 tab BID PO 04/06/17 09:00 04/11/17 09:40 (Milk Of Magnesia Liq) 30 ml Q12H PRN PO 8/25/17 21:30 (Senokot) 17.2 mg Q12H PRN PO 04/05/17 21:30 (Dulcolax Supp) 10 mg DAILY PRN RECTAL 04/05/17 21:30 (Lactulose Liq) 30 ml DAILY PRN PO 04/05/17 21:30 (Ambien) 5 mg HS PRN PO 04/07/17 14:15 04/10/17 20:49 (Protonix) 40 mg DAILY PO 04/07/17 15:00 04/11/17 09:40 (Duoneb Neb) 1 ampule Q6HR NEB NEB 04/07/17 15:00 04/11/17 05:22 (Levaquin) 750 mg DAILY PO 04/10/17 13:00 04/15/17 12:59 04/11/17 09:40 (Deltasone) 20 mg BID PO 04/11/17 21:00 Family History PAST FAMILY HISTORY: Mother from colon cancer. Father is 97 and living. Patient is an only child Substance Use Tobacco: Pack per day for 40 years. Quit smoking Alcohol: Previous history of alcoholism with cirrhosis. No alcohol since 1977, Prescription med abuse: No history Illicits: No history Psychosocial History Patient was born in [place]. Patient's father at 97 red size with her. Patient has no children. Patient was independent until the past months when she became ill and debilitated Living Will: Never completed Health Care Surrogate: Never completed Durable Power of Insurance Loss Adjuster: Never completed Physical Exam Vital Signs Date Time Temp Pulse Resp B/P (MAP) Pulse Ox O2 Delivery O2 Flow Rate FiO2 04/11/17 07:27 16 04/11/17 07:25 97.1 110 16 112/60 (77) 98 04/11/17 04:11 103 04/11/17 04:00 96.7 120 18 154/80 (104) 98 04/11/17 00:08 104 04/11/17 00:00 97.1 98 17 136/70 (92) 96 04/10/17 20:10 107 04/10/17 20:01 94 Nasal Cannula 3.00 04/10/17 20:00 96.3 108 18 106/59 (75) 100 04/10/17 15:50 96.9 101 20 122/58 (79) 97 04/10/17 12:00 102 04/10/17 11:50 97.3 116 20 125/58 (80) 100 Exam CONSTITUTIONAL/GENERAL: This is an adequately nourished patient, in no apparent distress. SKIN: No jaundice, rashes, or lesions. Ecchymoses on upper extremities. No wounds seen anteriorly. Skin temperature appropriate. Not diaphoretic. HEAD: Atraumatic. Normocephalic. EYES: Pupils equal and round and reactive.No scleral icterus. No injection or drainage. Fundi not examined. ENT: Hearing grossly normal. Nose without bleeding or purulent drainage. Throat without visible erythema, exudates, masses, or lesions. NECK: Trachea midline. Supple, nontender. left neck mass, non tender. CARDIOVASCULAR: Regular rate and rhythm without murmurs, gallops, or rubs. No JVD. Peripheral pulses symmetric. RESPIRATORY/CHEST: Symmetric, unlabored respirations. Clear to auscultation. Breath sounds equal bilaterally. No wheezes, rales, or rhonchi. GASTROINTESTINAL: Abdomen soft, non-tender, nondistended. No guarding. Bowel sounds present. GENITOURINARY: Without palpable bladder distension. MUSCULOSKELETAL: Extremities without clubbing, cyanosis, or edema. No joint tenderness or effusion noted. No calf tenderness. No mottling or clubbing. LYMPHATICS: left neck mass NEUROLOGICAL: Awake and alert. Motor and sensory grossly within normal limits. Follows commands. Cognitively sharp. Moves all extremities. PSYCHIATRIC: some anxiety after talking about code status Diagnostic Tests Laboratory Laboratory Tests Test 04/08/17 16:43 04/09/17 06:09 04/09/17 10:50 04/10/17 08:37 White Blood Count 29.1 TH/MM3 (4.0-11.0) 30.6 TH/MM3 (4.0-11.0) Red Blood Count 3.11 MIL/MM3 (4.00-5.30) 3.51 MIL/MM3 (4.00-5.30) Hemoglobin 8.8 GM/DL (11.6-15.3) 9.1 GM/DL (11.6-15.3) Hematocrit 25.5 % (35.0-46.0) 29.0 % (35.0-46.0) Mean Corpuscular Volume 82.2 FL (80.0-100.0) 82.4 FL (80.0-100.0) Mean Corpuscular Hemoglobin 28.3 PG (27.0-34.0) 26.0 PG (27.0-34.0) Mean Corpuscular Hemoglobin Concent 34.4 % (32.0-36.0) 31.6 % (32.0-36.0) Red Cell Distribution Width 16.2 % (11.6-17.2) 15.8 % (11.6-17.2) Platelet Count 342 TH/MM3 (150-450) 445 TH/MM3 (150-450) Mean Platelet Volume 7.3 FL (7.0-11.0) 7.1 FL (7.0-11.0) Blood Urea Nitrogen 13 MG/DL (7-18) 18 MG/DL (7-18) 17 MG/DL (7-18) Creatinine 0.40 MG/DL (0.50-1.00) 0.60 MG/DL (0.50-1.00) 0.54 MG/DL (0.50-1.00) Random Glucose 125 MG/DL (74-106) 133 MG/DL (74-106) 95 MG/DL (74-106) Calcium Level 7.6 MG/DL (8.5-10.1) 7.8 MG/DL (8.5-10.1) 7.8 MG/DL (8.5-10.1) Sodium Level 130 MEQ/L (136-145) 133 MEQ/L (136-145) 134 MEQ/L (136-145) Potassium Level 3.5 MEQ/L (3.5-5.1) 3.7 MEQ/L (3.5-5.1) 4.2 MEQ/L (3.5-5.1) Chloride Level 96 MEQ/L (98-107) 98 MEQ/L (98-107) 98 MEQ/L (98-107) Carbon Dioxide Level 26.5 MEQ/L (21.0-32.0) 24.8 MEQ/L (21.0-32.0) 25.6 MEQ/L (21.0-32.0) Anion Gap 8 MEQ/L (5-15) 10 MEQ/L (5-15) 10 MEQ/L (5-15) Estimat Glomerular Filtration Rate 158 ML/MIN (>89) 99 ML/MIN (>89) 112 ML/MIN (>89) Vancomycin Level Trough 29.4 MCG/ML (5.0-10.0) Random Vancomycin Level 20.6 COMMENT Test 04/10/17 12:55 White Blood Count 25.1 TH/MM3 (4.0-11.0) Red Blood Count 3.38 MIL/MM3 (4.00-5.30) Hemoglobin 9.2 GM/DL (11.6-15.3) Hematocrit 28.1 % (35.0-46.0) Mean Corpuscular Volume 83.1 FL (80.0-100.0) Mean Corpuscular Hemoglobin 27.2 PG (27.0-34.0) Mean Corpuscular Hemoglobin Concent 32.7 % (32.0-36.0) Red Cell Distribution Width 16.6 % (11.6-17.2) Platelet Count 330 TH/MM3 (150-450) Mean Platelet Volume 7.7 FL (7.0-11.0) Result Diagram: 04/10/17 1255 04/10/17 0837 Imaging Last Impressions Abdomen/Pelvis CT 04/09/17 0600 Signed Impressions: Service Date/Time: Sunday, April 09, 2017 11:30 - CONCLUSION: Patient demonstrates the following significant abnormalities: 1. Ascitic fluid in the pelvis. 2. In the left pelvis there is a 4.3 cm complex solid mass suggestive of ovarian mass, possible ovarian carcinoma. 3. Bilateral adrenal glands have masses on the right 1.6 on the left 1.3 cm in size highly suspect of representing metastatic disease. Ji Beard MD Chest X-Ray 04/08/17 0000 Signed Impressions: Service Date/Time: Saturday, April 08, 2017 14:20 - CONCLUSION: 1. Power port in good position. No pneumothorax. 2. Complete opacification of the left lung secondary to effusion and infiltrate. Vadim Fisher Jr., MD Thoracentesis Ultrasound 04/05/17 0000 Signed Impressions: Service Date/Time: Wednesday, April 05, 2017 19:01 - CONCLUSION: Uncomplicated ultrasound guided left thoracentesis. Vadim Fisher Jr., MD CT Angiography 04/05/17 0000 Signed Impressions: Service Date/Time: Wednesday, April 05, 2017 20:29 - CONCLUSION: 1. Large, malignant appearing mass of the left lower lobe. The mass involves the pleural and encases/obliterates the left lower lobe pulmonary artery. There is no pulmonary embolus. 2. Metastatic mediastinal lymphadenopathy. 3. 11 mm right lower lobe pulmonary nodule and a few scattered sub-4 mm pulmonary nodules of the left upper lobe will need attention on followup imaging. 4. Reexpansion edema the left upper lobe. The patient is status post left-sided thoracentesis. No pneumothorax. 5. Coronary artery calcification. 6. Nonspecific lobular contour of the liver. Cirrhosis and metastatic disease would be in the differential. There is also fullness of the left adrenal gland and apparent thickening of the visualized stomach. Kyler Parisi MD Patient/Family Conference Present at Family Conference: patient Family Conference Time (mins): 35 Family Conference Location: Bedside Issues Discussed: * Palliative care role, purpose, approach * Additional medical, psychosocial, and spiritual history * Patients general health, functional status, and cognitive changes in the months leading up to the current hospitalization * Patient/family understanding of the current medical problems * Patient/family understanding of prognosis * Patients goals of care as best understood from advance directives and/or conversations and/or values * Current medical treatment options and benefits/burdens of those options * Likely scenarios comparing ongoing aggressive care with a transition to comfort measures only * Questions answered to the best of my ability * Palliative care contact information provided Assessment and Plan Disease Oriented Problem List: (1) Lung mass (2) Metastatic disease Symptom Scale: Pertinent Non-Medical Issues Psychosocial: Spiritual: Legal: Ethical issues impacting care: Important Contacts could not get any further with patient. Code Status: Alternative Code Plan == capacity- has capacity == code- no intubation, but could not get any further. Amenable for me to put no intubation for now. ==pain- she currently denies pain on my visit. will monitor. == goc. I have touch base with oncology before seeing patient. They are aware for now, I will defer discussion of treatment and prognosis to them this early on. On my visit today I will address symptoms, advance directives and code status. Pt on my visit declines any pain or nausea. Introduce myself and the role of palliative care. She endorses she wants to start chemo therapy and looking forward to it. At first she endorse she was amenable to fill in health care surrogate. However after reviewing code status, she became anxious and upset and state "I do not want to go any further. I have not even started chemo yet. "Destinee 4d She mentioned she does not want intubation, and would amenable to put that in her code status for now, but does not want to address anything further. She decline filling out the health care surrogate. She reluctantly was amenable for me to visit tomorrow. == we will continue to follow, if pt allow. == d/w with onocology. Thank you for the opportunity to participate in the care of Ms. Peterson. Attestation To help prompt me to consider important information that might be impacting today's encounter and assessment, information from prior notes written by myself or my colleagues may have been "brought forward" into today's note. My signature on this note, however, is an attestation that I personally performed the exam, history, and/or decision-making noted today, and, unless otherwise indicated, the interactions with patient, family, and staff as well as the review of records all occurred today. I also attest that the listed assessment and stated plan reflect my best clinical judgment today based on the combination of historical information, prior notes, and today's exam/ interactions. When time spent is documented, it refers only to time spent today by the signer, or if indicated, combined time spent today by collaborating physician/nurse practitioner. Perry Short MD Apr 11, 2017 12:10
--- NOTE | 2017-04-11 13:15 | HHI.PR ---
Subjective Remarks Follow-up for multiple rapidly progressing mass involving neck, back, lung and genital area. Patient wanted to know what pathology report shows. We discussed about pathology finding of non-small cell lung cancer. Patient is somewhat relieved to know a diagnosis. She wants to be treated so that she can breath better. Today, she feels better after shower. No fever, chills. Tolerating diet well. Objective Vitals Vital Signs Date Time Temp Pulse Resp B/P (MAP) Pulse Ox O2 Delivery O2 Flow Rate FiO2 04/11/17 11:20 97.0 124 17 113/64 (80) 100 04/11/17 07:27 16 04/11/17 07:25 97.1 110 16 112/60 (77) 98 04/11/17 04:11 103 04/11/17 04:00 96.7 120 18 154/80 (104) 98 04/11/17 00:08 104 04/11/17 00:00 97.1 98 17 136/70 (92) 96 04/10/17 20:10 107 04/10/17 20:01 94 Nasal Cannula 3.00 04/10/17 20:00 96.3 108 18 106/59 (75) 100 04/10/17 15:50 96.9 101 20 122/58 (79) 97 I/O 04/10/17 04/10/17 04/10/17 04/11/17 04/11/17 04/11/17 07:00 15:00 23:00 07:00 15:00 23:00 Intake Total 597 ml Output Total 200 ml 350 ml Balance -200 ml 597 ml -350 ml Intake Oral 497 ml IV Total 100 ml Output Urine Total 200 ml 350 ml # Voids 2 1 2 # Bowel Movements 0 1 Result Diagram: 04/10/17 1255 04/10/17 0837 Other Results Back mass biopsy FINAL DIAGNOSIS: #1- SOFT TISSUE, BACK, BIOPSY: - POORLY DIFFERENTIATED NON-SMALL CELL CARCINOMA, CONSISTENT WITH LUNG PRIMARY (SEE COMMENT). #2- SOFT TISSUE, BACK, BIOPSY: - POORLY DIFFERENTIATED NON-SMALL CELL CARCINOMA, CONSISTENT WITH LUNG PRIMARY (SEE COMMENT). #3- SOFT TISSUE, BACK, BIOPSY: - POORLY DIFFERENTIATED NON-SMALL CELL CARCINOMA, CONSISTENT WITH LUNG PRIMARY (SEE COMMENT). Imaging Last Impressions Abdomen/Pelvis CT 04/09/17 0600 Signed Impressions: Service Date/Time: Sunday, April 09, 2017 11:30 - CONCLUSION: Patient demonstrates the following significant abnormalities: 1. Ascitic fluid in the pelvis. 2. In the left pelvis there is a 4.3 cm complex solid mass suggestive of ovarian mass, possible ovarian carcinoma. 3. Bilateral adrenal glands have masses on the right 1.6 on the left 1.3 cm in size highly suspect of representing metastatic disease. Ji Beard MD Chest X-Ray 04/08/17 0000 Signed Impressions: Service Date/Time: Saturday, April 08, 2017 14:20 - CONCLUSION: 1. Power port in good position. No pneumothorax. 2. Complete opacification of the left lung secondary to effusion and infiltrate. Vadim Fisher Jr., MD Thoracentesis Ultrasound 04/05/17 0000 Signed Impressions: Service Date/Time: Wednesday, April 05, 2017 19:01 - CONCLUSION: Uncomplicated ultrasound guided left thoracentesis. Vadim Fisher Jr., MD CT Angiography 04/05/17 Signed Impressions: Service Date/Time: Wednesday, April 05, 2017 20:29 - CONCLUSION: 1. Large, malignant appearing mass of the left lower lobe. The mass involves the pleural and encases/obliterates the left lower lobe pulmonary artery. There is no pulmonary embolus. 2. Metastatic mediastinal lymphadenopathy. 3. 11 mm right lower lobe pulmonary nodule and a few scattered sub-4 mm pulmonary nodules of the left upper lobe will need attention on followup imaging. 4. Reexpansion edema the left upper lobe. The patient is status post left-sided thoracentesis. No pneumothorax. 5. Coronary artery calcification. 6. Nonspecific lobular contour of the liver. Cirrhosis and metastatic disease would be in the differential. There is also fullness of the left adrenal gland and apparent thickening of the visualized stomach. Kyler Parisi MD Objective Remarks GENERAL: Alert, oriented 3, NAD. SKIN: Warm and dry. HEAD: Normocephalic. A large mass protruding from her left jaw. EYES: No scleral icterus. No injection or drainage. NECK: Supple, trachea midline. No JVD or lymphadenopathy. CARDIOVASCULAR: Regular rate and rhythm without murmurs, gallops, or rubs. RESPIRATORY: Breath sounds equal bilaterally. No accessory muscle use. GASTROINTESTINAL: Abdomen soft, non-tender, nondistended. MUSCULOSKELETAL: No cyanosis, or edema. BACK: Nontender without obvious deformity. No CVA tenderness. Right side of the mid back shows a mass status post biopsy. Procedures 04/05- left thoracentesis 04/08/2017 PROCEDURE PERFORMED 1. Right subclavian [id number] with intraoperative fluoroscopy. 2. Excisional biopsy subcutaneous mass right back. A/P Problem List: (1) Sepsis ICD Code: A41.9 - Sepsis, unspecified organism Status: Acute (2) Metastatic disease ICD Code: C79.9 - Secondary malignant neoplasm of unspecified site Status: Acute (3) Pleural effusion ICD Code: J90 - Pleural effusion, not elsewhere classified Status: Acute (4) Hyponatremia ICD Code: E87.1 - Hypo-osmolality and hyponatremia Status: Acute Assessment and Plan 71 years old female admitted secondary to acute respiratory distress with lung mass and evidence of metastasis. Biopsy of back mass obtained on 04/08/17. Follow results. Continue oxygenation. Continue antibiotics. Continue to monitor blood work. CBC and BMP in the morning. Metastatic Primary lung cancer Pleural effusion Biopsy of the mass on her back shows poorly differentiated non-small cell carcinoma consistent with lung primary. s/p thoracentesis for pleural effusion. Pleural fluid cytology did not show any evidence of malignant cells. Oncology plans to start chemotherapy in-patient. Acute respiratory distress Pneumonia Possibly post-obstructive pneumonia. Discontinued vancomycin and cefepime. Continue Levaquin 750 mg by mouth daily. We can probably continue by mouth antibiotics for 5 more days. Hyponatremia Sodium improved from 121 on 04/05/2017 to 134 on 04/10/2017. Possibly SIADH vs from poor oral intake. CBC, BMP in the AM. Full code. SCDs. Problem Qualifiers (1) Sepsis: Qualified Codes: A41.9 - Sepsis, unspecified organism Corie Malone DO Apr 11, 2017 13:15
[2017-04-11] MEDS: predniSONE 20 MG TAB PO SCH (21:23)
[2017-04-11] MEDS: SODIUM CHLOR 0.9% 1000 ML INJ 1,000 ML IV SCH (21:24)
[2017-04-11] MEDS: ZOLPIDEM TARTRATE 5 MG TAB PO PRN (21:25)
[2017-04-12] VITALS (8 sets, daily range): BP systolic 101–124; BP diastolic 58–68; PULSE 101–116; RESP 16–18; TEMP 97–98.8; O2SAT 97–99
[2017-04-12] MEDS: CHLORHEXIDINE GLUCONATE 2 % 1 PACK (2 CLOTHS) TOP SCH (04:00)
[2017-04-12 07:50] LABS: AUTOMATED NEUTROPHIL # 25.4 TH/MM3 (1.8-7.7); BASOPHIL % 0.1 % (0.0-2.0); MEAN CELL VOLUME 83.3 FL (80.0-100.0); MEAN CORPUSCULAR HGB CONC 31.3 % (32.0-36.0); MONO % 5.4 % (0.0-8.0); NEUT % 87.5 % (16.0-70.0); PLATELET COUNT 306 TH/MM3 (150-450); RED BLOOD COUNT 3.24 MIL/MM3 (4.00-5.30); RED CELL DISTRIBUTION WIDTH 16.5 % (11.6-17.2)
[2017-04-12 07:56] LABS: HEMO FLAGS AUTO DIFF
[2017-04-12 08:06] LABS: BICARBONATE 31.1 MEQ/L (21.0-32.0); POTASSIUM 3.9 MEQ/L (3.5-5.1)
--- NOTE | 2017-04-12 08:39 | PD.ONC.PN ---
Subjective Subjective Remarks no complaints and ready to start tx. Objective Data Date Time Temp Pulse Resp B/P (MAP) Pulse Ox O2 Delivery O2 Flow Rate FiO2 04/12/17 04:00 98.8 112 18 123/63 (83) 97 04/12/17 00:00 97.9 116 18 124/59 (80) 97 04/11/17 22:02 99 Nasal Cannula 3.00 04/11/17 20:00 97.2 115 18 122/65 (84) 99 04/11/17 18:31 99 Nasal Cannula 3.00 04/11/17 15:20 96.9 111 17 106/60 (75) 99 04/11/17 11:20 97.0 124 17 113/64 (80) 100 04/12/17 04/12/17 04/12/17 07:00 15:00 23:00 Intake Total 240 ml Output Total 2 ml Balance 238 ml Result Diagram: 04/12/17 0557 04/12/17 0557 Laboratory Results Laboratory Tests Test 04/12/17 05:57 White Blood Count 29.0 TH/MM3 Red Blood Count 3.24 MIL/MM3 Hemoglobin 8.4 GM/DL Hematocrit 27.0 % Mean Corpuscular Volume 83.3 FL Mean Corpuscular Hemoglobin 26.0 PG Mean Corpuscular Hemoglobin Concent 31.3 % Red Cell Distribution Width 16.5 % Platelet Count 306 TH/MM3 Mean Platelet Volume 7.5 FL Neutrophils (%) (Auto) 87.5 % Lymphocytes (%) (Auto) 7.0 % Monocytes (%) (Auto) 5.4 % Eosinophils (%) (Auto) 0.0 % Basophils (%) (Auto) 0.1 % Neutrophils # (Auto) 25.4 TH/MM3 Lymphocytes # (Auto) 2.0 TH/MM3 Monocytes # (Auto) 1.6 TH/MM3 Eosinophils # (Auto) 0.0 TH/MM3 Basophils # (Auto) 0.0 TH/MM3 CBC Comment AUTO DIFF Blood Urea Nitrogen 19 MG/DL Creatinine 0.53 MG/DL Random Glucose 111 MG/DL Calcium Level 7.6 MG/DL Sodium Level 131 MEQ/L Potassium Level 3.9 MEQ/L Chloride Level 93 MEQ/L Carbon Dioxide Level 31.1 MEQ/L Anion Gap 7 MEQ/L Estimat Glomerular Filtration Rate 114 ML/MIN Administered Medications Medications (Trade) Dose Ordered Sig/Jaspal Route PRN Reason Start Time Stop Time Status Last Admin Dose Admin Miscellaneous Information 1 Q361D XX 04/05/17 21:30 04/05/17 21:30 Chlorhexidine Gluconate (Chlorhexidine 2% Cloth) Taper DAILY@04 TOP 04/06/17 04:00 04/02/18 03:59 04/08/17 04:00 Sodium Chloride 1,000 ml @ 42 mls/hr [id number] IV 04/05/17 21:18 04/11/17 21:24 Sodium Chloride (NS Flush) 2 ml BID IV FLUSH 04/06/17 09:00 04/11/17 21:23 Acetaminophen/ Hydrocodone Bitart ([place] 5-325 Mg) 1 tab Q4H PRN PO PAIN SCALE 3 TO 5 04/05/17 21:30 04/11/17 11:57 Morphine Sulfate (Morphine Inj) 2 mg Q3H PRN IV Pain 6-10 04/05/17 21:30 04/09/17 16:37 Senna/Docusate Sodium (Jenelle-Colace) 1 tab BID PO 04/06/17 09:00 04/11/17 09:40 Zolpidem Tartrate (Ambien) 5 mg HS PRN PO SLEEP 04/07/17 14:15 04/11/17 21:25 Pantoprazole Sodium (Protonix) 40 mg DAILY PO 04/07/17 15:00 04/11/17 09:40 Levofloxacin (Levaquin) 750 mg DAILY PO 04/10/17 13:00 04/15/17 12:59 04/11/17 09:40 Prednisone (Deltasone) 20 mg BID PO 04/11/17 21:00 04/11/17 21:23 Objective Remarks GENERAL: no distress but with obvious mass growing out of left neck SKIN: Warm and dry. HEAD: Normocephalic. EYES: No scleral icterus. No injection or drainage. NECK: large mass left neck LYMPHATIC: large mass left neck CARDIOVASCULAR: Regular rate and rhythm without murmurs. RESPIRATORY: decreased sounds left base. GASTROINTESTINAL: Abdomen soft, non-tender, nondistended. EXTREMITIES: No cyanosis, or edema. MUSCULOSKELETAL: Adequate muscle tone. NEUROLOGICAL: No obvious focal deficit. Awake, alert, and oriented x3. PSYCHIATRIC: Appropriate mood and affect; insight and judgment normal. Assessment/Plan Plan 1. 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 Will give chemotherapy today with carboplatin and Taxol while inpatient. Treatment is one dauy. Orders written wit slight dose reduction given frailty and await molecular studies. 2. We will ask case management to help with discharge which is likely to take place early next week. She lives with and takes care of her 97 year old father. I explained to her she needs to consider the possibility that she may not be alive in 2 months or sooner if complications of treatment or progressive tumor. the following decisions were made - no cpr -father will act as health care surrogate -she needs to address end of life issues in terms of will etc. 3: I will see approximately 1 week after discharge. I will be back Saturday and group will cover. She understands the situation and has guarded optimism. Cricket Barajas MD Apr 12, 2017 08:39
[2017-04-12] MEDS: predniSONE 20 MG TAB PO SCH ×2 (08:54→23:06)
[2017-04-12] MEDS: PANTOPRAZOLE SOD 40 MG DELAYED RELEASE TAB PO SCH (08:54)
[2017-04-12] MEDS: LEVOFLOXACIN 750 MG TAB PO SCH (08:54)
[2017-04-12] MEDS: SODIUM CHLORIDE 0.9% FLUSH 10 ML FLUSH IV FLUSH SCH ×2 (08:55→21:00)
[2017-04-12] MEDS: DOCUSATE SODIUM 50 MG/SENNA 8.6 MG TAB PO SCH ×2 (08:55→21:00)
[2017-04-12] MEDS ORDERED: SODIUM CHLOR 0.9% 250 ML INJ 250 ML IV SCH (09:45)
[2017-04-12 09:52] LABS: BANDS 3 % (0-6); NEUTROPHIL # MANUAL DIFF 27.6 TH/MM3 (1.8-7.7); PLATELET ESTIMATE SMEAR NORMAL (NORMAL); PLATELET MORPHOLOGY NORMAL (NORMAL); POLYS (SEG NEUTROPHILS) 92 % (16-70); SCAN/DIFF FINAL DIFF MANUAL; WBC DIFF SAMPLE 100
--- NOTE | 2017-04-12 10:01 | HHI.PR ---
Subjective Remarks Pt states that she has at times a "quick urge have a BM" but is able to make it. she denies any loose stools just the need to go quickly. denies any CP/SOB/N /V Pt tells me that she doesn't want to speak w the palliative care team. Objective Vitals Vital Signs Date Time Temp Pulse Resp B/P (MAP) Pulse Ox O2 Delivery O2 Flow Rate FiO2 04/12/17 08:15 97.3 110 18 113/58 (76) 97 04/12/17 04:00 98.8 112 18 123/63 (83) 97 04/12/17 00:00 97.9 116 18 124/59 (80) 97 04/11/17 22:02 99 Nasal Cannula 3.00 04/11/17 20:00 97.2 115 18 122/65 (84) 99 04/11/17 18:31 99 Nasal Cannula 3.00 04/11/17 15:20 96.9 111 17 106/60 (75) 99 04/11/17 11:20 97.0 124 17 113/64 (80) 100 I/O 04/11/17 04/11/17 04/11/17 04/12/17 04/12/17 04/12/17 07:00 15:00 23:00 07:00 15:00 23:00 Intake Total 477 ml 240 ml Output Total 2 ml Balance 477 ml 238 ml Intake Oral 477 ml 240 ml Stool Total 2 ml # Voids 2 2 4 # Bowel Movements 1 1 Result Diagram: 04/12/17 0557 04/12/17 0557 Imaging Last Impressions Abdomen/Pelvis CT 04/09/17 0600 Signed Impressions: Service Date/Time: Sunday, April 09, 2017 11:30 - CONCLUSION: Patient demonstrates the following significant abnormalities: 1. Ascitic fluid in the pelvis. 2. In the left pelvis there is a 4.3 cm complex solid mass suggestive of ovarian mass, possible ovarian carcinoma. 3. Bilateral adrenal glands have masses on the right 1.6 on the left 1.3 cm in size highly suspect of representing metastatic disease. Ji Beard MD Chest X-Ray 04/08/17 0000 Signed Impressions: Service Date/Time: Saturday, April 08, 2017 14:20 - CONCLUSION: 1. Power port in good position. No pneumothorax. 2. Complete opacification of the left lung secondary to effusion and infiltrate. Vadim Fisher Jr., MD Thoracentesis Ultrasound 04/05/17 0000 Signed Impressions: Service Date/Time: Wednesday, April 05, 2017 19:01 - CONCLUSION: Uncomplicated ultrasound guided left thoracentesis. Vadim Fisher Jr., MD CT Angiography 04/05/17 0000 Signed Impressions: Service Date/Time: Wednesday, April 05, 2017 20:29 - CONCLUSION: 1. Large, malignant appearing mass of the left lower lobe. The mass involves the pleural and encases/obliterates the left lower lobe pulmonary artery. There is no pulmonary embolus. 2. Metastatic mediastinal lymphadenopathy. 3. 11 mm right lower lobe pulmonary nodule and a few scattered sub-4 mm pulmonary nodules of the left upper lobe will need attention on followup imaging. 4. Reexpansion edema the left upper lobe. The patient is status post left-sided thoracentesis. No pneumothorax. 5. Coronary artery calcification. 6. Nonspecific lobular contour of the liver. Cirrhosis and metastatic disease would be in the differential. There is also fullness of the left adrenal gland and apparent thickening of the visualized stomach. Kyler Parisi MD Objective Remarks GENERAL: Alert, oriented 3, NC in place. SKIN: Warm and dry. HEAD: A large mass protruding from her left jaw. EYES: EOMI NECK: trachea midline. No JVD or lymphadenopathy. CARDIOVASCULAR: Regular rate and rhythm without murmurs. RESPIRATORY: Breath sounds equal bilaterally. No accessory muscle use. GASTROINTESTINAL: Abdomen soft, non-tender, nondistended. MUSCULOSKELETAL: No edema. clubbing noted on her fingers Procedures 04/05- left thoracentesis 04/08/2017 PROCEDURE PERFORMED 1. Right subclavian [id number] with intraoperative fluoroscopy. 2. Excisional biopsy subcutaneous mass right back. A/P Problem List: (1) Sepsis ICD Code: A41.9 - Sepsis, unspecified organism Status: Acute (2) Metastatic disease ICD Code: C79.9 - Secondary malignant neoplasm of unspecified site Status: Acute (3) Pleural effusion ICD Code: J90 - Pleural effusion, not elsewhere classified Status: Acute (4) Hyponatremia ICD Code: E87.1 - Hypo-osmolality and hyponatremia Status: Acute Assessment and Plan 71 years old female admitted secondary to acute respiratory distress with lung mass and evidence of metastasis. Metastatic Primary lung cancer Pleural effusion Biopsy of the mass on her back shows poorly differentiated non-small cell carcinoma consistent with lung primary. s/p thoracentesis for pleural effusion. Pleural fluid cytology did not show any evidence of malignant cells. Oncology will start chemotherapy today. Discussed the case w Dr. Barajas, he would like pt to monitored over the weekend. He also tells me that he discussed code status w patient and she wishes to be DNR. CM has been consulted for assistance w d/c planning. PT consult in place for d/c recs and to assist patient while in the hospital. d/c when cleared by oncology Acute respiratory distress Pneumonia Possibly post-obstructive pneumonia. Discontinued vancomycin and cefepime. Continue Levaquin 750 mg by mouth daily. We can probably continue by mouth antibiotics for 4 more days. Hyponatremia Sodium improved from 121 on 04/05/2017 to 134 on 04/10/2017. Possibly SIADH vs from poor oral intake. CBC, BMP in the AM. Discharge Planning Pt will be monitored over the week-end. Anticipate d/c early next week when cleared by oncology. Pt will be getting chemotherapy today Problem Qualifiers (1) Sepsis: Qualified Codes: A41.9 - Sepsis, unspecified organism Jennifer Guzman MD Apr 12, 2017 10:01
[2017-04-12] MEDS ORDERED: FAMOTIDINE 20 MG TAB PO ONE (10:30)
[2017-04-12] MEDS ORDERED: GRANISETRON HCL 1 MG/ML VIAL IV ONE (10:30)
[2017-04-12] MEDS ORDERED: diphenhydrAMINE HCL 25 MG CAP PO ONE (10:30)
[2017-04-12] MEDS: LORazepam 0.5 MG TAB PO PRN (10:45)
[2017-04-12] MEDS ORDERED: SODIUM CHLOR 0.9% IV ONE ×2 (11:30→12:00)
[2017-04-12] MEDS ORDERED: CARBOPLATIN IV ONE (11:30)
[2017-04-12] MEDS ORDERED: PACLITAXEL IV ONE (12:00)
[2017-04-12] MEDS: ACETAMINOPHEN/HYDROcodone 325 MG/5 MG TAB PO PRN (12:01)
[2017-04-12] MEDS: SODIUM CHLOR 0.9% 1000 ML INJ 1,000 ML IV SCH (12:06)
--- NOTE | 2017-04-12 15:55 | HHI.HCPN ---
Pt this afternoon declined palliative care visit, and further visits. Nurse was present during my attempt to visit. Palliative will be available to see patient again when she is ready, and team can reconsult. Perry Short MD Apr 12, 2017 15:55
[2017-04-12] MEDS: ZOLPIDEM TARTRATE 5 MG TAB PO PRN (23:18)
[2017-04-13] VITALS (8 sets, daily range): BP systolic 108–118; BP diastolic 58–79; PULSE 116–122; RESP 14–22; TEMP 96.4–98.4; O2SAT 96–100
[2017-04-13] MEDS: CHLORHEXIDINE GLUCONATE 2 % 1 PACK (2 CLOTHS) TOP SCH (04:00)
[2017-04-13] MEDS: SODIUM CHLOR 0.9% 1000 ML INJ 1,000 ML IV SCH (05:38)
[2017-04-13 06:14] LABS: AUTOMATED NEUTROPHIL # 26.9 TH/MM3 (1.8-7.7); HEMATOCRIT 28.2 % (35.0-46.0); LYMPH % 5.4 % (9.0-44.0); LYMPHOCYTE # 1.6 TH/MM3 (1.0-4.8); MEAN CORPUSCULAR HEMOGLOBIN 26.3 PG (27.0-34.0); MEAN CORPUSCULAR HGB CONC 31.7 % (32.0-36.0); MONO % 3.1 % (0.0-8.0); NEUT % 91.5 % (16.0-70.0); PLATELET COUNT 322 TH/MM3 (150-450); RED CELL DISTRIBUTION WIDTH 16.6 % (11.6-17.2); WHITE BLOOD COUNT 29.4 TH/MM3 (4.0-11.0)
[2017-04-13 06:27] LABS: BICARBONATE 31.8 MEQ/L (21.0-32.0); POTASSIUM 4.1 MEQ/L (3.5-5.1)
[2017-04-13 06:28] LABS: HEMO FLAGS AUTO DIFF
[2017-04-13 08:40] LABS: NEUTROPHIL # MANUAL DIFF 26.8 TH/MM3 (1.8-7.7); PLATELET ESTIMATE SMEAR NORMAL (NORMAL); PLATELET MORPHOLOGY NORMAL (NORMAL); POLYS (SEG NEUTROPHILS) 91 % (16-70); SCAN/DIFF FINAL DIFF MANUAL; WBC DIFF SAMPLE 100
--- NOTE | 2017-04-13 08:51 | PD.ONC.PN ---
Subjective Subjective Remarks Afebrile overnight. Tolerated chemotherapy yesterday. Resting in bed without complaints. No nausea. Objective Data Date Time Temp Pulse Resp B/P (MAP) Pulse Ox O2 Delivery O2 Flow Rate FiO2 04/13/17 04:00 96.4 116 16 113/61 (78) 98 04/13/17 00:00 98.4 116 16 118/64 (82) 100 04/12/17 20:00 97.8 109 16 111/62 (78) 99 04/12/17 16:30 98.1 101 18 101/68 (79) 04/12/17 16:15 97.0 106 17 110/65 (80) 97 04/12/17 13:01 18 04/12/17 12:15 97.1 110 17 107/60 (76) 98 04/12/17 10:30 97 Nasal Cannula 1.00 04/13/17 04/13/17 04/13/17 06:59 14:59 22:59 Intake Total 456 ml Output Total 200 ml Balance 256 ml Result Diagram: 04/13/17 0530 04/13/17 0530 Laboratory Results Laboratory Tests Test 04/13/17 05:30 White Blood Count 29.4 TH/MM3 Red Blood Count 3.40 MIL/MM3 Hemoglobin 8.9 GM/DL Hematocrit 28.2 % Mean Corpuscular Volume 83.0 FL Mean Corpuscular Hemoglobin 26.3 PG Mean Corpuscular Hemoglobin Concent 31.7 % Red Cell Distribution Width 16.6 % Platelet Count 322 TH/MM3 Mean Platelet Volume 7.7 FL Neutrophils (%) (Auto) 91.5 % Lymphocytes (%) (Auto) 5.4 % Monocytes (%) (Auto) 3.1 % Eosinophils (%) (Auto) 0.0 % Basophils (%) (Auto) 0.0 % Neutrophils # (Auto) 26.9 TH/MM3 Lymphocytes # (Auto) 1.6 TH/MM3 Monocytes # (Auto) 0.9 TH/MM3 Eosinophils # (Auto) 0.0 TH/MM3 Basophils # (Auto) 0.0 TH/MM3 CBC Comment AUTO DIFF Blood Urea Nitrogen 17 MG/DL Creatinine 0.60 MG/DL Random Glucose 127 MG/DL Calcium Level 7.5 MG/DL Magnesium Level 2.0 MG/DL Sodium Level 133 MEQ/L Potassium Level 4.1 MEQ/L Chloride Level 95 MEQ/L Carbon Dioxide Level 31.8 MEQ/L Anion Gap 6 MEQ/L Estimat Glomerular Filtration Rate 99 ML/MIN Administered Medications Medications (Trade) Dose Ordered Sig/Jaspal Route PRN Reason Start Time Stop Time Status Last Admin Dose Admin Miscellaneous Information 1 Q361D XX 04/05/17 21:30 04/05/17 21:30 Chlorhexidine Gluconate (Chlorhexidine 2% Cloth) Taper DAILY@04 TOP 04/06/17 04:00 04/02/18 03:59 04/08/17 04:00 Sodium Chloride 1,000 ml @ 42 mls/hr [id number] IV 04/05/17 21:18 04/13/17 05:38 Sodium Chloride (NS Flush) 2 ml BID IV FLUSH 04/06/17 09:00 04/11/17 21:23 Acetaminophen/ Hydrocodone Bitart ([place] 5-325 Mg) 1 tab Q4H PRN PO PAIN SCALE 3 TO 5 04/05/17 21:30 04/12/17 12:01 Morphine Sulfate (Morphine Inj) 2 mg Q3H PRN IV Pain 6-10 04/05/17 21:30 04/09/17 16:37 Senna/Docusate Sodium (Jenelle-Colace) 1 tab BID PO 04/06/17 09:00 04/11/17 09:40 Zolpidem Tartrate (Ambien) 5 mg HS PRN PO SLEEP 04/07/17 14:15 04/12/17 23:18 Pantoprazole Sodium (Protonix) 40 mg DAILY PO 04/07/17 15:00 04/12/17 08:54 Levofloxacin (Levaquin) 750 mg DAILY PO 04/10/17 13:00 04/15/17 12:59 04/12/17 08:54 Prednisone (Deltasone) 20 mg BID PO 04/11/17 21:00 04/12/17 23:06 Lorazepam (Ativan) 0.5 mg Q6HR PRN PO ANXIETY 04/12/17 10:45 04/12/17 10:45 Objective Remarks GENERAL: Frail elderly female upright in bed SKIN: Warm and dry. HEAD: Normocephalic. EYES: No scleral icterus. No injection or drainage. NECK: Supple, trachea midline. large mass, left neck. CARDIOVASCULAR: +S1/S2, tachy RESPIRATORY: Breath sounds equal bilaterally. No accessory muscle use. GASTROINTESTINAL: Abdomen soft, non-tender, nondistended. EXTREMITIES: No cyanosis NEUROLOGICAL: awake and alert, normal speech. Assessment/Plan Problem List: (1) Non-small cell lung cancer (NSCLC) ICD Codes: C34.90 - Malignant neoplasm of unspecified part of unspecified bronchus or lung Plan: --non-small cell adenocarcinoma consistent with a lung primary, however there is at least focal squamous differentiation. --given carboplatin and Taxol with dose reduction on 04/12/17 --patient's HCS will be Father --NO CODE --expect discharge on Saturday and follow up with Dr. Barajas by 04/19/17-->fs faxed to new patient referrals. (2) DVT of axillary vein, acute ICD Codes: I82.A19 - Acute embolism and thrombosis of unspecified axillary vein Plan: --U/S shows nonocclusive thrombus in the right basilic vein with occlusive thrombus in the distal cephalic vein. LUE shows nonocclusive thrombus in the left cephalic vein. Assessment 71-year-old female admitted with rapidly enlarging left neck mass, huge left lung mass, mass above the vulva and mass over the right back. Now with newly diagnosed metastatic NSCLC, adenocarcinoma with focal squamous differentiation. HPI (from initial consult)--3 months ago noticed small nodule in left neck and fullness superior to the left vulva which grew rapidly. She saw Dr. Carter who is a integration consultant due to a mass in the vulvar area and was referred to Dr. Wetzel who is a gynecologic oncologist. She has not had the appointment with Dr. Wetzel as of the present time. Over the past several weeks the neck mass has grown considerably. She became increasingly short of breath and this prompted her to go to the emergency room at [facility]. On 04/05/[address] of the thorax which showed a large malignant appearing mass involving the left lower lobe extending to the pleura and encases and obliterates the left lower lobe pulmonary artery. There is no pulmonary embolus. There is mediastinal adenopathy. There is a 11 mm right lower lobe pulmonary nodule and a few scattered sub 4 mm pulmonary nodules involving the left upper lobe. The patient underwent a thoracentesis, and skin biopsy. Pathology showed tumor is a non- small cell adenocarcinoma consistent with a lung primary, however there is at least focal squamous differentiation. Will give chemotherapy today with carboplatin and Taxol while inpatient. Treatment is one day. Orders written with slight dose reduction given frailty and await molecular studies. --Previous history of alcoholism with cirrhosis. Plan 1. monitor CBC, CMP 2. continue supportive care Attending Statement The exam, history, and the medical decision-making described in the above note were completed with the assistance of the mid-level provider. I reviewed and agree with the findings presented. I attest that I had a [id number] encounter with the patient on the same day, and personally performed and documented my assessment and findings in the medical record. Patient seen and examined, her major complaint is that of left upper extremity swelling, shortness of breath with exertion and generalized weakness. Ultrasound Doppler studies of the left upper extremity indicates a left basilic vein thrombosis. The patient was examined personally by myself and I do agree with the clinical exam findings above with the following changes: Edema and tenderness of the left upper extremity from the arm down to the forearm. Plan: Initiate anticoagulation with lovenox; her anemia is noted. I will order stool for occult blood. I have also added on PDL-1 staining to the skin biopsy to determine if this patient may benefit from first-line immunotherapy with Keytruda. Nicky Lucas Apr 13, 2017 08:51 Nate Armstrong MD Apr 13, 2017 14:12
[2017-04-13] MEDS: DOCUSATE SODIUM 50 MG/SENNA 8.6 MG TAB PO SCH ×2 (09:00→21:00)
[2017-04-13] MEDS: SODIUM CHLORIDE 0.9% FLUSH 10 ML FLUSH IV FLUSH SCH ×2 (09:00→21:34)
--- NOTE | 2017-04-13 09:05 | HHI.PR ---
Subjective Remarks Follow up on patient with lung cancer. Patient seen and examined today. Patient reports she is feeling well. She does report some swelling in her arms in the left more so than the right. She has good appetite. Witnessed eating breakfast. Denies any complaints of nausea or vomiting. No fevers or chills. Objective Vitals Vital Signs Date Time Temp Pulse Resp B/P (MAP) Pulse Ox O2 Delivery O2 Flow Rate FiO2 04/13/17 04:00 96.4 116 16 113/61 (78) 98 04/13/17 00:00 98.4 116 16 118/64 (82) 100 04/12/17 20:00 97.8 109 16 111/62 (78) 99 04/12/17 16:30 98.1 101 18 101/68 (79) 04/12/17 16:15 97.0 106 17 110/65 (80) 97 04/12/17 13:01 18 04/12/17 12:15 97.1 110 17 107/60 (76) 98 04/12/17 10:30 97 Nasal Cannula 1.00 I/O 04/12/17 04/12/17 04/12/17 04/13/17 04/13/17 04/13/17 07:00 15:00 23:00 07:00 15:00 23:00 Intake Total 240 ml 252 ml 290 ml 456 ml Output Total 2 ml 600 ml 200 ml Balance 238 ml 252 ml -310 ml 256 ml Intake Oral 240 ml 290 ml 120 ml IV Total 252 ml 336 ml Output Urine Total 600 ml 200 ml Stool Total 2 ml # Voids 4 3 1 # Bowel Movements 1 Result Diagram: 04/13/17 0530 04/13/17 0530 Imaging Last Impressions Abdomen/Pelvis CT 04/09/17 0600 Signed Impressions: Service Date/Time: Sunday, April 09, 2017 11:30 - CONCLUSION: Patient demonstrates the following significant abnormalities: 1. Ascitic fluid in the pelvis. 2. In the left pelvis there is a 4.3 cm complex solid mass suggestive of ovarian mass, possible ovarian carcinoma. 3. Bilateral adrenal glands have masses on the right 1.6 on the left 1.3 cm in size highly suspect of representing metastatic disease. Ji Beard MD Chest X-Ray 04/08/17 0000 Signed Impressions: Service Date/Time: Saturday, April 08, 2017 14:20 - CONCLUSION: 1. Power port in good position. No pneumothorax. 2. Complete opacification of the left lung secondary to effusion and infiltrate. Vadim Fisher Jr., MD Thoracentesis Ultrasound 04/05/17 0000 Signed Impressions: Service Date/Time: Wednesday, April 05, 2017 19:01 - CONCLUSION: Uncomplicated ultrasound guided left thoracentesis. Vadim Fisher Jr., MD CT Angiography 04/05/17 0000 Signed Impressions: Service Date/Time: Wednesday, April 05, 2017 20:29 - CONCLUSION: 1. Large, malignant appearing mass of the left lower lobe. The mass involves the pleural and encases/obliterates the left lower lobe pulmonary artery. There is no pulmonary embolus. 2. Metastatic mediastinal lymphadenopathy. 3. 11 mm right lower lobe pulmonary nodule and a few scattered sub-4 mm pulmonary nodules of the left upper lobe will need attention on followup imaging. 4. Reexpansion edema the left upper lobe. The patient is status post left-sided thoracentesis. No pneumothorax. 5. Coronary artery calcification. 6. Nonspecific lobular contour of the liver. Cirrhosis and metastatic disease would be in the differential. There is also fullness of the left adrenal gland and apparent thickening of the visualized stomach. Kyler Parisi MD Objective Remarks GENERAL: WDWN female. INAD. Alert, oriented 3, NC in place. Sitting up on side of bed eating breakfast. SKIN: Warm and dry. HEAD: A large mass protruding from her left jaw. EYES: EOMI. Sclera anicteric NECK: trachea midline. Airway patent. CARDIOVASCULAR: Tachycardiac. No murmurs appreciated. RESPIRATORY: No accessory muscle use. Por effort. Clear but diminished lung sounds. GASTROINTESTINAL: Abdomen soft, non-tender, nondistended. MUSCULOSKELETAL: Clubbing noted on her fingers. Positive edema in BUE L >>R. Procedures 04/05- left thoracentesis 04/08/2017 PROCEDURE PERFORMED 1. Right subclavian [id number] with intraoperative fluoroscopy. 2. Excisional biopsy subcutaneous mass right back. Medications and IVs Current Medications Medications (Trade) Dose Ordered Sig/Jaspal Route Start Time Stop Time Status Last Admin Miscellaneous Information 1 Q361D XX 04/05/17 21:30 04/05/17 21:30 (Chlorhexidine 2% Cloth) Taper DAILY@04 TOP 04/06/17 04:00 04/02/18 03:59 04/08/17 04:00 (Chlorhexidine 2% Cloth) 3 pack UNSCH PRN TOP 04/05/17 21:30 Sodium Chloride 1,000 ml @ 42 mls/hr [id number] IV 04/05/17 21:18 04/13/17 05:38 (NS Flush) 2 ml UNSCH PRN IV FLUSH 04/05/17 21:30 (NS Flush) 2 ml BID IV FLUSH 04/06/17 09:00 04/11/17 21:23 (Zofran Inj) 4 mg Q6H PRN IVP 04/05/17 21:30 (Tylenol) 650 mg Q6H PRN PO 04/05/17 21:30 ([place] 5-325 Mg) 1 tab Q4H PRN PO 04/05/17 21:30 04/12/17 12:01 (Morphine Inj) 2 mg Q3H PRN IV 04/05/17 21:30 04/09/17 16:37 (Jenelle-Colace) 1 tab BID PO 04/06/17 09:00 04/11/17 09:40 (Milk Of Magnesia Liq) 30 ml Q12H PRN PO 04/05/17 21:30 (Senokot) 17.2 mg Q12H PRN PO 04/05/17 21:30 (Dulcolax Supp) 10 mg DAILY PRN RECTAL 04/05/17 21:30 (Lactulose Liq) 30 ml DAILY PRN PO 04/05/17 21:30 (Ambien) 5 mg HS PRN PO 04/07/17 14:15 04/12/17 23:18 (Protonix) 40 mg DAILY PO 04/07/17 15:00 04/12/17 08:54 (Levaquin) 750 mg DAILY PO 04/10/17 13:00 04/15/17 12:59 04/12/17 08:54 (Deltasone) 20 mg BID PO 04/11/17 21:00 04/12/17 23:06 (Ativan) 0.5 mg Q6HR PRN PO 04/12/17 10:45 04/12/17 10:45 (Tums Chew) 500 mg Q12HR CHEW 04/13/17 09:00 A/P Problem List: (1) Sepsis ICD Code: A41.9 - Sepsis, unspecified organism Status: Acute (2) Metastatic disease ICD Code: C79.9 - Secondary malignant neoplasm of unspecified site Status: Acute (3) Pleural effusion ICD Code: J90 - Pleural effusion, not elsewhere classified Status: Acute (4) Hyponatremia ICD Code: E87.1 - Hypo-osmolality and hyponatremia Status: Acute Assessment and Plan 71 years old female admitted secondary to acute respiratory distress with lung mass and evidence of metastasis. Metastatic Primary lung cancer Pleural effusion Biopsy of the mass on her back shows poorly differentiated non-small cell carcinoma consistent with lung primary. s/p thoracentesis for pleural effusion. Pleural fluid cytology did not show any evidence of malignant cells. Oncology started chemotherapy. Per Dr. Barajas's request, he would like pt to be monitored over the weekend. CM has been consulted for assistance w d/c planning. PT consult in place for d/c recs and to assist patient while in the hospital. d/c when cleared by oncology Acute respiratory distress Pneumonia Possibly post-obstructive pneumonia. Discontinued vancomycin and cefepime. Continue Levaquin 750 mg by mouth daily. We can probably continue by mouth antibiotics for 3 more days. IS ordered at the bedside. Encouraged use. Hyponatremia Sodium improved from 121 on 04/05/2017 to 134 on 04/10/2017. Possibly SIADH vs from poor oral intake. Na 133 today. Continue to monitor. Repeat BMP in am. Hypocalcemia Calcium level 7.5 Begin Tums BID continue to monitor trend Anemia appears stable continue to monitor Leukocytosis likely secondary to stress rxn and cancer patient is afebrile. does not appear septic. continue to monitor. CBC in am ordered. Tachycardia HR 116 EKG ordered BUE edema L>R Bilateral US ordered to R/O DVT Discussed with patient and Dr. Guzman Discharge Planning Pt will be monitored over the week-end. Anticipate d/c early next week when cleared by oncology. S/p Chemo treatment yesterday. Attending Statement The exam, history, and the medical decision-making described in the above note were completed with the assistance of the mid-level provider. I reviewed and agree with the findings presented. I attest that I had a [id number] encounter with the patient on the same day, and personally performed and documented my assessment and findings in the medical record. Pt is feeling well today. s/p chemotherapy yesterday. She does mention the swelling on her arms and arms were examined L>R. Will order US to r/o DVT. Pt continues to remain tachycardic, will check EKG. On exam she is regular. her lung exam shows decreased breath sounds but no wheezing. Will order IS and have encouraged her to use q1hr while awake. Pt has no complaints of CPs or palpitations. Tolerating a diet. Will continue to monitor pt over the weekend. CM assisting w d/c planning. Anticipate discharge early next week when cleared by oncology team. Problem Qualifiers (1) Sepsis: Qualified Codes: A41.9 - Sepsis, unspecified organism Isadora Taylor Apr 13, 2017 09:05 Jennifer Guzman MD Apr 13, 2017 09:19
[2017-04-13] MEDS: predniSONE 20 MG TAB PO SCH ×2 (09:47→21:33)
[2017-04-13] MEDS: LEVOFLOXACIN 750 MG TAB PO SCH (09:47)
[2017-04-13] MEDS: PANTOPRAZOLE SOD 40 MG DELAYED RELEASE TAB PO SCH (09:47)
[2017-04-13] MEDS: CALCIUM CARBONATE 500 MG CHEWABLE TAB CHEW SCH ×2 (09:47→21:00)
--- NOTE | 2017-04-13 12:54 | RADRPT ---
EXAM DATE/TIME: 04/13/2017 11:26 [facility] COMPARISON: No previous studies available for comparison. INDICATIONS : Edema. MEDICAL HISTORY : Cirrhosis. Glasses. Dyspnea. Ulcer. Cancer. SURGICAL HISTORY : Left wrist surgery. ENCOUNTER: Initial ACUITY: 1 day PAIN SCORE: 1/10 LOCATION: Bilateral arms. FINDINGS: RIGHT UPPER EXTREMITY: There is nonocclusive thrombus in the right basalic vein with occlusive thrombus in the distal cephal ic vein. LEFT UPPER EXTREMITY: Nonocclusive thrombus is present in the left cephalic vein. The subcutaneous patent. CONCLUSION: Deep and superficial thrombosis in the right upper extremity with patent axillary vein. Nonocclusive thrombus left cephalic vein with patent brachial vein. Adal Dang MD FACR on April 13, 2017 at 12:50 Board Certified Radiologist. This report was verified electronically.
[2017-04-13] MEDS: LORazepam 0.5 MG TAB PO PRN (13:10)
[2017-04-13] MEDS: ENOXAPARIN SODIUM 60 MG/0.6 ML SYRINGE SQ SCH (16:18)
--- NOTE | 2017-04-13 17:18 | EKG ---
Date Performed: 04/13/2017 Time Performed: 13:45:12 PTAGE: 71 years EKG: SINUS TACHYCARDIA ABNORMAL RHYTHM ECG PREVIOUS TRACING : 04/05/2017 17.38 DOCTOR: Zana Song Interpretating Date/Time 04/13/2017 17:15:56
[2017-04-13] MEDS: ZOLPIDEM TARTRATE 5 MG TAB PO PRN (21:36)
[2017-04-14] VITALS (7 sets, daily range): BP systolic 92–119; BP diastolic 50–72; PULSE 103–127; RESP 16–22; TEMP 97.6–99.2; O2SAT 95–98
[2017-04-14] MEDS: ENOXAPARIN SODIUM 60 MG/0.6 ML SYRINGE SQ SCH ×2 (03:00→14:28)
[2017-04-14] MEDS: LORazepam 0.5 MG TAB PO PRN (03:00)
[2017-04-14] MEDS: CHLORHEXIDINE GLUCONATE 2 % 1 PACK (2 CLOTHS) TOP SCH (03:06)
[2017-04-14 05:59] LABS: AUTOMATED NEUTROPHIL # 25.8 TH/MM3 (1.8-7.7); BASOPHIL % 0.1 % (0.0-2.0); HEMATOCRIT 26.4 % (35.0-46.0); HEMO FLAGS DIFF FINAL; LYMPH % 4.7 % (9.0-44.0); LYMPHOCYTE # 1.3 TH/MM3 (1.0-4.8); MEAN CORPUSCULAR HEMOGLOBIN 26.6 PG (27.0-34.0); MEAN CORPUSCULAR HGB CONC 32.1 % (32.0-36.0); MONO % 1.3 % (0.0-8.0); NEUT % 93.9 % (16.0-70.0); PLATELET COUNT 220 TH/MM3 (150-450); RED BLOOD COUNT 3.18 MIL/MM3 (4.00-5.30); RED CELL DISTRIBUTION WIDTH 16.8 % (11.6-17.2); WHITE BLOOD COUNT 27.5 TH/MM3 (4.0-11.0)
[2017-04-14 06:07] LABS: BICARBONATE 30.5 MEQ/L (21.0-32.0); POTASSIUM 4.1 MEQ/L (3.5-5.1)
--- NOTE | 2017-04-14 08:49 | HHI.PR ---
Subjective Remarks Pt tells me that last night she had a panic attack. Now she feels better. Was asleep when I walked into the room. Denies any CP/worsening SOB/n/v Pain controlled. Objective Vitals Vital Signs Date Time Temp Pulse Resp B/P (MAP) Pulse Ox O2 Delivery O2 Flow Rate FiO2 04/14/17 04:00 99.2 113 22 109/72 (84) 97 04/14/17 00:00 98.0 127 21 112/55 (74) 96 04/13/17 22:41 96 Nasal Cannula 2.00 04/13/17 20:00 97.7 122 22 108/63 (78) 98 04/13/17 16:00 97.5 118 14 110/58 (75) 98 04/13/17 12:00 98.0 118 16 116/63 (80) 97 04/13/17 08:58 98 Nasal Cannula 2.00 I/O 04/13/17 04/13/17 04/13/17 04/14/17 04/14/17 04/14/17 07:00 15:00 23:00 07:00 15:00 23:00 Intake Total 456 ml 472 ml 360 ml 240 ml Output Total 200 ml 400 ml 300 ml Balance 256 ml 472 ml -40 ml -60 ml Intake Oral 120 ml 472 ml 360 ml 240 ml IV Total 336 ml Output Urine Total 200 ml 400 ml 300 ml # Voids 1 2 3 # Bowel Movements 2 Result Diagram: 04/14/17 0430 04/14/17 0430 Imaging Last Impressions Upper Extremity Ultrasound 04/13/17 0000 Signed Impressions: Service Date/Time: Thursday, April 13, 2017 11:26 - CONCLUSION: Deep and superficial thrombosis in the right upper extremity with patent axillary vein. Nonocclusive thrombus left cephalic vein with patent brachial vein. Adal Dang MD FACR Abdomen/Pelvis CT 04/09/17 0600 Signed Impressions: Service Date/Time: Sunday, April 09, 2017 11:30 - CONCLUSION: Patient demonstrates the following significant abnormalities: 1. Ascitic fluid in the pelvis. 2. In the left pelvis there is a 4.3 cm complex solid mass suggestive of ovarian mass, possible ovarian carcinoma. 3. Bilateral adrenal glands have masses on the right 1.6 on the left 1.3 cm in size highly suspect of representing metastatic disease. Ji Beard MD Chest X-Ray 04/08/17 0000 Signed Impressions: Service Date/Time: Saturday, April 08, 2017 14:20 - CONCLUSION: 1. Power port in good position. No pneumothorax. 2. Complete opacification of the left lung secondary to effusion and infiltrate. Vadim Fisher Jr., MD Thoracentesis Ultrasound 04/05/17 0000 Signed Impressions: Service Date/Time: Wednesday, April 05, 2017 19:01 - CONCLUSION: Uncomplicated ultrasound guided left thoracentesis. Vadim Fisher Jr., MD CT Angiography 04/05/17 0000 Signed Impressions: Service Date/Time: Wednesday, April 05, 2017 20:29 - CONCLUSION: 1. Large, malignant appearing mass of the left lower lobe. The mass involves the pleural and encases/obliterates the left lower lobe pulmonary artery. There is no pulmonary embolus. 2. Metastatic mediastinal lymphadenopathy. 3. 11 mm right lower lobe pulmonary nodule and a few scattered sub-4 mm pulmonary nodules of the left upper lobe will need attention on followup imaging. 4. Reexpansion edema the left upper lobe. The patient is status post left-sided thoracentesis. No pneumothorax. 5. Coronary artery calcification. 6. Nonspecific lobular contour of the liver. Cirrhosis and metastatic disease would be in the differential. There is also fullness of the left adrenal gland and apparent thickening of the visualized stomach. Kyler Parisi MD Objective Remarks GENERAL: Alert, oriented 3, NC in place. layin in bed asleep initially but easily arousable. SKIN: Warm and dry. HEAD: A large mass protruding from her left jaw. EYES: EOMI NECK: trachea midline. No JVD or lymphadenopathy. CARDIOVASCULAR: tachycardic but regular without murmurs. RESPIRATORY: Breath sounds equal bilaterally. No accessory muscle use. mild expiratory wheeze GASTROINTESTINAL: Abdomen soft, non-tender, nondistended. MUSCULOSKELETAL: No edema. clubbing noted on her fingers Procedures 04/05- left thoracentesis 04/08/2017 PROCEDURE PERFORMED 1. Right subclavian [id number] with intraoperative fluoroscopy. 2. Excisional biopsy subcutaneous mass right back. A/P Problem List: (1) Sepsis ICD Code: A41.9 - Sepsis, unspecified organism Status: Acute (2) Metastatic disease ICD Code: C79.9 - Secondary malignant neoplasm of unspecified site Status: Acute (3) Pleural effusion ICD Code: J90 - Pleural effusion, not elsewhere classified Status: Acute (4) Hyponatremia ICD Code: E87.1 - Hypo-osmolality and hyponatremia Status: Acute Assessment and Plan 71 years old female admitted secondary to acute respiratory distress with lung mass and evidence of metastasis. Metastatic Primary lung cancer Pleural effusion Biopsy of the mass on her back shows poorly differentiated non-small cell carcinoma consistent with lung primary. s/p thoracentesis for pleural effusion. Pleural fluid cytology did not show any evidence of malignant cells. Oncology started chemotherapy. Per Dr. Barajas's request, he would like pt to be monitored over the weekend. CM has been consulted for assistance w d/c planning. PT consult in place for d/c recs and to assist patient while in the hospital. d/c when cleared by oncology Acute respiratory distress Pneumonia Possibly post-obstructive pneumonia. Discontinued vancomycin and cefepime. Continue Levaquin 750 mg by mouth daily. We can probably continue by mouth antibiotics for 2 more days. IS ordered at the bedside. Encouraged use. added duoneb q6hrs prn w one dose now as she is wheezing. Hyponatremia Sodium stable at 133 Possibly SIADH vs from poor oral intake. Continue to monitor. Hypocalcemia on Tums BID continue to monitor trend Anemia appears stable continue to monitor Leukocytosis likely secondary to stress rxn and cancer patient is afebrile. does not appear septic. continue to monitor. CBC in am ordered. Tachycardia HR 116 EKG reviewed by me and shows sinus tach BUE edema L>R Bilateral US showing superficial and deep thrombosis of the right upper extremity w patent axillary vein and non occlusive thrombus left cephalic and patent brachia vein. hematology started pt on lovenox 60mg q12hrs Discharge Planning Pt will be monitored over the week-end. Anticipate d/c early next week when cleared by oncology. Problem Qualifiers (1) Sepsis: Qualified Codes: A41.9 - Sepsis, unspecified organism Jennifer Guzman MD Apr 14, 2017 08:49
[2017-04-14] MEDS: DOCUSATE SODIUM 50 MG/SENNA 8.6 MG TAB PO SCH ×2 (09:00→21:00)
[2017-04-14] MEDS ORDERED: RESP: ALBUTEROL 2.5 MG/IPRATROPIUM 0.5 MG NEB (SCH) NEB ONE (09:00)
[2017-04-14] MEDS: SODIUM CHLORIDE 0.9% FLUSH 10 ML FLUSH IV FLUSH SCH ×2 (09:00→22:33)
--- NOTE | 2017-04-14 09:25 | PD.ONC.PN ---
Subjective Subjective Remarks Afebrile overnight. Patient resting in bed in nad. Tolerating Lovenox injections. No bleeding. No pain in arms. Objective Data Date Time Temp Pulse Resp B/P (MAP) Pulse Ox O2 Delivery O2 Flow Rate FiO2 04/14/17 04:00 99.2 113 22 109/72 (84) 97 04/14/17 00:00 98.0 127 21 112/55 (74) 96 04/13/17 22:41 96 Nasal Cannula 2.00 04/13/17 20:00 97.7 122 22 108/63 (78) 98 04/13/17 16:00 97.5 118 14 110/58 (75) 98 04/13/17 12:00 98.0 118 16 116/63 (80) 97 04/14/17 04/14/17 04/14/17 06:59 14:59 22:59 Intake Total 240 ml Output Total 300 ml Balance -60 ml Result Diagram: 04/14/17 0430 04/14/17 0430 Laboratory Results Laboratory Tests Test 04/14/17 04:30 White Blood Count 27.5 TH/MM3 Red Blood Count 3.18 MIL/MM3 Hemoglobin 8.5 GM/DL Hematocrit 26.4 % Mean Corpuscular Volume 83.0 FL Mean Corpuscular Hemoglobin 26.6 PG Mean Corpuscular Hemoglobin Concent 32.1 % Red Cell Distribution Width 16.8 % Platelet Count 220 TH/MM3 Mean Platelet Volume 8.4 FL Neutrophils (%) (Auto) 93.9 % Lymphocytes (%) (Auto) 4.7 % Monocytes (%) (Auto) 1.3 % Eosinophils (%) (Auto) 0.0 % Basophils (%) (Auto) 0.1 % Neutrophils # (Auto) 25.8 TH/MM3 Lymphocytes # (Auto) 1.3 TH/MM3 Monocytes # (Auto) 0.4 TH/MM3 Eosinophils # (Auto) 0.0 TH/MM3 Basophils # (Auto) 0.0 TH/MM3 CBC Comment DIFF FINAL Differential Comment Blood Urea Nitrogen 25 MG/DL Creatinine 0.54 MG/DL Random Glucose 138 MG/DL Total Protein 5.4 GM/DL Calcium Level 7.1 MG/DL Sodium Level 133 MEQ/L Potassium Level 4.1 MEQ/L Chloride Level 94 MEQ/L Carbon Dioxide Level 30.5 MEQ/L Anion Gap 9 MEQ/L Estimat Glomerular Filtration Rate 112 ML/MIN Protein Corrected Calcium 8.0 MG/DL Culture Results Microbiology Date/Time Source Procedure Growth Status 04/13/17 15:13 Stool Stool Stool Occult Blood ([facility]) - Final HEMOCCULT NEGATIVE Complete Administered Medications Medications (Trade) Dose Ordered Sig/Jaspal Route PRN Reason Start Time Stop Time Status Last Admin Dose Admin Miscellaneous Information 1 Q361D XX 04/05/17 21:30 04/05/17 21:30 Chlorhexidine Gluconate (Chlorhexidine 2% Cloth) Taper DAILY@04 TOP 04/06/17 04:00 04/02/18 03:59 04/08/17 04:00 Sodium Chloride 1,000 ml @ 42 mls/hr [id number] IV 04/05/17 21:18 04/13/17 05:38 Sodium Chloride (NS Flush) 2 ml BID IV FLUSH 04/06/17 09:00 04/13/17 21:34 Acetaminophen/ Hydrocodone Bitart ([place] 5-325 Mg) 1 tab Q4H PRN PO PAIN SCALE 3 TO 5 04/05/17 21:30 04/12/17 12:01 Morphine Sulfate (Morphine Inj) 2 mg Q3H PRN IV Pain 6-10 04/05/17 21:30 04/09/17 16:37 Senna/Docusate Sodium (Jenelle-Colace) 1 tab BID PO 04/06/17 09:00 04/11/17 09:40 Zolpidem Tartrate (Ambien) 5 mg HS PRN PO SLEEP 04/07/17 14:15 04/13/17 21:36 Pantoprazole Sodium (Protonix) 40 mg DAILY PO 04/07/17 15:00 04/13/17 09:47 Levofloxacin (Levaquin) 750 mg DAILY PO 04/10/17 13:00 04/15/17 12:59 04/13/17 09:47 Prednisone (Deltasone) 20 mg BID PO 04/11/17 21:00 04/13/17 21:33 Lorazepam (Ativan) 0.5 mg Q6HR PRN PO ANXIETY 04/12/17 10:45 04/14/17 03:00 Calcium Carbonate (Tums Chew) 500 mg Q12HR CHEW 04/13/17 09:00 04/13/17 09:47 Enoxaparin Sodium (Lovenox Inj) 60 mg Q12H SQ 04/13/17 15:00 04/14/17 03:00 Objective Remarks GENERAL: Frail elderly female sitting up in bed in nad. SKIN: Warm and dry. HEAD: Normocephalic. EYES: No injection or drainage. NECK: Supple, trachea midline. neck with tennis ball sized mass. CARDIOVASCULAR: +S1/S2 RESPIRATORY: diminished at bases, anterior franks with occasional wheeze. on 2L O2 GASTROINTESTINAL: Abdomen soft, non-tender, nondistended. EXTREMITIES: No cyanosis NEUROLOGICAL: aox3. normal speech. no obvious focal deficit Assessment/Plan Problem List: (1) Non-small cell lung cancer (NSCLC) ICD Codes: C34.90 - Malignant neoplasm of unspecified part of unspecified bronchus or lung Plan: --non-small cell adenocarcinoma consistent with a lung primary, however there is at least focal squamous differentiation. --given carboplatin and Taxol with dose reduction on 04/12/17 --patient's HCS will be Father --NO CODE --expect discharge on Saturday and follow up with Dr. Barajas by 04/19/17-->fs faxed to new patient referrals. (2) DVT of axillary vein, acute ICD Codes: I82.A19 - Acute embolism and thrombosis of unspecified axillary vein Plan: --on Lovenox 60mg SQ q 12. --U/S shows nonocclusive thrombus in the right basilic vein with occlusive thrombus in the distal cephalic vein. LUE shows nonocclusive thrombus in the left cephalic vein. Assessment 71-year-old female admitted with rapidly enlarging left neck mass, huge left lung mass, mass above the vulva and mass over the right back. Now with newly diagnosed metastatic NSCLC, adenocarcinoma with focal squamous differentiation. HPI (from initial consult)--3 months ago noticed small nodule in left neck and fullness superior to the left vulva which grew rapidly. She saw Dr. Carter who is a resolution specialist due to a mass in the vulvar area and was referred to Dr. Wetzel who is a gynecologic oncologist. She has not had the appointment with Dr. Wetzel as of the present time. Over the past several weeks the neck mass has grown considerably. She became increasingly short of breath and this prompted her to go to the emergency room at [facility]. On 04/05/[address] of the thorax which showed a large malignant appearing mass involving the left lower lobe extending to the pleura and encases and obliterates the left lower lobe pulmonary artery. There is no pulmonary embolus. There is mediastinal adenopathy. There is a 11 mm right lower lobe pulmonary nodule and a few scattered sub 4 mm pulmonary nodules involving the left upper lobe. The patient underwent a thoracentesis, and skin biopsy. Pathology showed tumor is a non- small cell adenocarcinoma consistent with a lung primary, however there is at least focal squamous differentiation. Will give chemotherapy today with carboplatin and Taxol while inpatient. Treatment is one day. Orders written with slight dose reduction given frailty and await molecular studies. --Previous history of alcoholism with cirrhosis. Plan 1. continue Lovenox 2. monitor CBC, CMP 3. follow up in clinic with Dr. Braajas once discharged Attending Statement The exam, history, and the medical decision-making described in the above note were completed with the assistance of the mid-level provider. I reviewed and agree with the findings presented. I attest that I had a [id number] encounter with the patient on the same day, and personally performed and documented my assessment and findings in the medical record. Pt seen and examined, vs, labs, meds reviewed. She is tearful today and reports having had a panic attack last night and a period of confusion. She describes waking up in the middle of the night not knowing where she was. She tried to walk with the pneumatic compression devices on and almost fell, the nurses prevented a fall, got her back in bed and re-oriented her. She responded well to an anxiolytic. She wants to go home. PDL-1 stains have been ordered and are pending. Nicky Lucas Apr 14, 2017 09:24 Nate Armstrong MD Apr 14, 2017 20:05
[2017-04-14] MEDS ORDERED: RESP: ALBUTEROL 2.5 MG/IPRATROPIUM 0.5 MG NEB (PRN) NEB (10:00)
[2017-04-14] MEDS: LEVOFLOXACIN 750 MG TAB PO SCH (10:13)
[2017-04-14] MEDS: CALCIUM CARBONATE 500 MG CHEWABLE TAB CHEW SCH ×2 (10:13→22:32)
[2017-04-14] MEDS: predniSONE 20 MG TAB PO SCH ×2 (10:14→22:32)
[2017-04-14] MEDS: PANTOPRAZOLE SOD 40 MG DELAYED RELEASE TAB PO SCH (10:14)
[2017-04-14] MEDS ORDERED: PILL SPLITTER OTHER PRN (13:15)
[2017-04-14] MEDS: METOPROLOL TARTRATE 25 MG TAB PO SCH ×2 (14:28→22:32)
[2017-04-14] MEDS: ACETAMINOPHEN/HYDROcodone 325 MG/5 MG TAB PO PRN (17:35)
[2017-04-14] MEDS: ZOLPIDEM TARTRATE 5 MG TAB PO PRN (22:41)
[2017-04-15] VITALS (8 sets, daily range): BP systolic 97–127; BP diastolic 52–74; PULSE 98–119; RESP 17–27; TEMP 96–97.8; O2SAT 93–98
[2017-04-15] MEDS: SODIUM CHLOR 0.9% 1000 ML INJ 1,000 ML IV SCH (01:34)
[2017-04-15] MEDS: CHLORHEXIDINE GLUCONATE 2 % 1 PACK (2 CLOTHS) TOP SCH (01:50)
[2017-04-15] MEDS: ENOXAPARIN SODIUM 60 MG/0.6 ML SYRINGE SQ SCH ×2 (03:52→16:04)
[2017-04-15] MEDS: METOPROLOL TARTRATE 25 MG TAB PO SCH ×3 (05:28→22:27)
[2017-04-15 06:08] LABS: BASOPHIL % 0.1 % (0.0-2.0); HEMATOCRIT 26.4 % (35.0-46.0); LYMPH % 3.1 % (9.0-44.0); LYMPHOCYTE # 0.9 TH/MM3 (1.0-4.8); MEAN CELL VOLUME 82.8 FL (80.0-100.0); MEAN CORPUSCULAR HEMOGLOBIN 26.5 PG (27.0-34.0); MONO % 0.3 % (0.0-8.0); NEUT % 96.5 % (16.0-70.0); PLATELET COUNT 197 TH/MM3 (150-450); RED BLOOD COUNT 3.18 MIL/MM3 (4.00-5.30); RED CELL DISTRIBUTION WIDTH 16.7 % (11.6-17.2); WHITE BLOOD COUNT 30.1 TH/MM3 (4.0-11.0)
[2017-04-15 06:30] LABS: BICARBONATE 29.3 MEQ/L (21.0-32.0); POTASSIUM 4.2 MEQ/L (3.5-5.1)
[2017-04-15 06:35] LABS: HEMO FLAGS AUTO DIFF
[2017-04-15] MEDS ORDERED: LORazepam 0.5 MG TAB PO ONE (08:15)
--- NOTE | 2017-04-15 08:26 | HHI.PR ---
Subjective Remarks Pt states that she feels anxious about leaving. She has had 2 panic attack thus far but none last night. states that she gets some pain w swallowing which radiates to her head, apparently she has been having this but never complained about this. denies any CP, worsening SOB, nausea or vomiting. didn't eat much yesterday, but she would like to try to eat oatmeal today Objective Vitals Vital Signs Date Time Temp Pulse Resp B/P (MAP) Pulse Ox O2 Delivery O2 Flow Rate FiO2 04/15/17 04:20 97.4 115 18 117/58 (77) 94 04/15/17 00:15 96.3 105 17 118/56 (76) 98 04/14/17 22:30 103 119/56 (77) 04/14/17 20:15 97.8 105 18 92/50 (64) 96 04/14/17 16:00 97.6 120 16 103/58 (73) 98 04/14/17 12:00 98.9 122 20 110/54 (72) 96 I/O 04/14/17 04/14/17 04/14/17 04/15/17 04/15/17 04/15/17 07:00 15:00 23:00 07:00 15:00 23:00 Intake Total 240 ml 604 ml Output Total 300 ml 500 ml Balance -60 ml 604 ml -500 ml Intake Oral 240 ml IV Total 604 ml Output Urine Total 300 ml 500 ml # Voids 1 # Bowel Movements 0 0 Result Diagram: 04/15/17 0530 04/15/17 0530 Imaging Last Impressions Upper Extremity Ultrasound 04/13/17 0000 Signed Impressions: Service Date/Time: Thursday, April 13, 2017 11:26 - CONCLUSION: Deep and superficial thrombosis in the right upper extremity with patent axillary vein. Nonocclusive thrombus left cephalic vein with patent brachial vein. Adal Dang MD FACR Abdomen/Pelvis CT 04/09/17 0600 Signed Impressions: Service Date/Time: Sunday, April 09, 2017 11:30 - CONCLUSION: Patient demonstrates the following significant abnormalities: 1. Ascitic fluid in the pelvis. 2. In the left pelvis there is a 4.3 cm complex solid mass suggestive of ovarian mass, possible ovarian carcinoma. 3. Bilateral adrenal glands have masses on the right 1.6 on the left 1.3 cm in size highly suspect of representing metastatic disease. Ji Beard MD Chest X-Ray 04/08/17 Signed Impressions: Service Date/Time: Saturday, April 08, 2017 14:20 - CONCLUSION: 1. Power port in good position. No pneumothorax. 2. Complete opacification of the left lung secondary to effusion and infiltrate. Vadim Fisher Jr., MD Thoracentesis Ultrasound 04/05/17 Signed Impressions: Service Date/Time: Wednesday, April 05, 2017 19:01 - CONCLUSION: Uncomplicated ultrasound guided left thoracentesis. Vadim Fisher Jr., MD CT Angiography 04/05/17 Signed Impressions: Service Date/Time: Wednesday, April 05, 2017 20:29 - CONCLUSION: 1. Large, malignant appearing mass of the left lower lobe. The mass involves the pleural and encases/obliterates the left lower lobe pulmonary artery. There is no pulmonary embolus. 2. Metastatic mediastinal lymphadenopathy. 3. 11 mm right lower lobe pulmonary nodule and a few scattered sub-4 mm pulmonary nodules of the left upper lobe will need attention on followup imaging. 4. Reexpansion edema the left upper lobe. The patient is status post left-sided thoracentesis. No pneumothorax. 5. Coronary artery calcification. 6. Nonspecific lobular contour of the liver. Cirrhosis and metastatic disease would be in the differential. There is also fullness of the left adrenal gland and apparent thickening of the visualized stomach. Kyler Parisi MD Objective Remarks GENERAL: Alert, oriented 3, NC in place. sitting up on side of bed SKIN: Warm and dry. HEAD: A large mass protruding from her left jaw. EYES: EOMI NECK: trachea midline. No JVD or lymphadenopathy. CARDIOVASCULAR: tachycardic but regular without murmurs. RESPIRATORY: Breath sounds equal bilaterally. No accessory muscle use. no wheezes GASTROINTESTINAL: Abdomen soft, non-tender, nondistended. MUSCULOSKELETAL: No edema. clubbing noted on her fingers Procedures 04/05- left thoracentesis 04/08/2017 PROCEDURE PERFORMED 1. Right subclavian [id number]-[id number]-[id number] with intraoperative fluoroscopy. 2. Excisional biopsy subcutaneous mass right back. A/P Problem List: (1) Sepsis ICD Code: A41.9 - Sepsis, unspecified organism Status: Acute (2) Metastatic disease ICD Code: C79.9 - Secondary malignant neoplasm of unspecified site Status: Acute (3) Pleural effusion ICD Code: J90 - Pleural effusion, not elsewhere classified Status: Acute (4) Hyponatremia ICD Code: E87.1 - Hypo-osmolality and hyponatremia Status: Acute Assessment and Plan 71 years old female admitted secondary to acute respiratory distress with lung mass and evidence of metastasis. Metastatic Primary lung cancer Pleural effusion anxiety Biopsy of the mass on her back shows poorly differentiated non-small cell carcinoma consistent with lung primary. s/p thoracentesis for pleural effusion. Pleural fluid cytology did not show any evidence of malignant cells. Oncology started chemotherapy. CM has been consulted for assistance w d/c planning. walk test ordered. PT recommends wheeled walker and home health PT. d/c when cleared by oncology ativan prn anxiety Acute respiratory distress Pneumonia Possibly post-obstructive pneumonia. Discontinued vancomycin and cefepime. Continue Levaquin 750 mg by mouth daily. We can probably continue by mouth antibiotics for 1 more day. IS ordered at the bedside. Encouraged use. duoneb q6hrs prn Hyponatremia Sodium stable at 131-133 Possibly SIADH vs from poor oral intake. Continue to monitor. Hypocalcemia on Tums BID continue to monitor trend Anemia appears stable continue to monitor Leukocytosis likely secondary to stress rxn and cancer patient is afebrile. does not appear septic. continue to monitor. CBC in am ordered. Tachycardia HR 116 EKG reviewed by me and shows sinus tach on metoprolol 12.5mg po TID will increase to 25mg po BID BUE edema L>R Bilateral US showing superficial and deep thrombosis of the right upper extremity w patent axillary vein and non occlusive thrombus left cephalic and patent brachia vein. hematology started pt on lovenox 60mg q12hrs Discharge Planning awaiting clearance from oncology Problem Qualifiers (1) Sepsis: Qualified Codes: A41.9 - Sepsis, unspecified organism Jennifer Guzman MD Apr 15, 2017 08:26
[2017-04-15] MEDS: LEVOFLOXACIN 750 MG TAB PO SCH (08:40)
[2017-04-15] MEDS: CALCIUM CARBONATE 500 MG CHEWABLE TAB CHEW SCH ×2 (08:40→22:27)
[2017-04-15] MEDS: DOCUSATE SODIUM 50 MG/SENNA 8.6 MG TAB PO SCH ×2 (08:40→22:21)
[2017-04-15] MEDS: predniSONE 20 MG TAB PO SCH (08:40)
[2017-04-15] MEDS: PANTOPRAZOLE SOD 40 MG DELAYED RELEASE TAB PO SCH (08:40)
[2017-04-15 08:55] LABS: BANDS 1 % (0-6); NEUTROPHIL # MANUAL DIFF 29.8 TH/MM3 (1.8-7.7); POLYS (SEG NEUTROPHILS) 98 % (16-70); WBC DIFF SAMPLE 100
[2017-04-15 08:56] LABS: PLATELET ESTIMATE SMEAR NORMAL (NORMAL); PLATELET MORPHOLOGY NORMAL (NORMAL); SCAN/DIFF FINAL DIFF MANUAL
[2017-04-15] MEDS: SODIUM CHLORIDE 0.9% FLUSH 10 ML FLUSH IV FLUSH SCH ×2 (08:56→22:28)
[2017-04-15] MEDS: ACETAMINOPHEN/HYDROcodone 325 MG/5 MG TAB PO PRN (10:34)
--- NOTE | 2017-04-15 11:21 | HHI.HCPN ---
Attempted to see Ms. Peterson for social palliative care visit and discuss health care surrogacy designation. Declines supportive visits from palliative care. Does not wish to speak with anyone from the palliative care team at this time. Please reconsult if needed. Nydia Fisher, MEDICAL TRANSPORT SPECIALIST Apr 15, 2017 11:21
--- NOTE | 2017-04-15 15:22 | PD.ONC.PN ---
Subjective Subjective Remarks patient frightened to go home and tells me her elderly father can manage at home without her. she does not feel safe and wants to stay in the hospital Objective Data Date Time Temp Pulse Resp B/P (MAP) Pulse Ox O2 Delivery O2 Flow Rate FiO2 04/15/17 12:00 97.7 98 20 127/66 (86) 98 04/15/17 11:40 17 04/15/17 08:00 97.7 105 27 117/74 (88) 96 04/15/17 07:52 93 Nasal Cannula 1.50 04/15/17 04:20 97.4 115 18 117/58 (77) 94 04/15/17 00:15 96.3 105 17 118/56 (76) 98 04/14/17 22:30 103 119/56 (77) 04/14/17 20:15 97.8 105 18 92/50 (64) 96 04/14/17 16:00 97.6 120 16 103/58 (73) 98 04/15/17 04/15/17 04/15/17 07:00 15:00 23:00 Output Total 500 ml Balance -500 ml Result Diagram: 04/15/17 0530 04/15/17 0530 Laboratory Results Laboratory Tests Test 04/15/17 05:30 White Blood Count 30.1 TH/MM3 Red Blood Count 3.18 MIL/MM3 Hemoglobin 8.4 GM/DL Hematocrit 26.4 % Mean Corpuscular Volume 82.8 FL Mean Corpuscular Hemoglobin 26.5 PG Mean Corpuscular Hemoglobin Concent 32.0 % Red Cell Distribution Width 16.7 % Platelet Count 197 TH/MM3 Mean Platelet Volume 8.6 FL Neutrophils (%) (Auto) 96.5 % Lymphocytes (%) (Auto) 3.1 % Monocytes (%) (Auto) 0.3 % Eosinophils (%) (Auto) 0.0 % Basophils (%) (Auto) 0.1 % Neutrophils # (Auto) 29.0 TH/MM3 Lymphocytes # (Auto) 0.9 TH/MM3 Monocytes # (Auto) 0.1 TH/MM3 Eosinophils # (Auto) 0.0 TH/MM3 Basophils # (Auto) 0.0 TH/MM3 CBC Comment AUTO DIFF Differential Total Cells Counted 100 Neutrophils % (Manual) 98 % Band Neutrophils % 1 % Lymphocytes % 1 % Neutrophils # (Manual) 29.8 TH/MM3 Differential Comment FINAL DIFF MANUAL Platelet Estimate NORMAL Platelet Morphology Comment NORMAL Red Cell Morphology Comment NORMAL Blood Urea Nitrogen 30 MG/DL Creatinine 0.53 MG/DL Random Glucose 137 MG/DL Calcium Level 7.5 MG/DL Sodium Level 131 MEQ/L Potassium Level 4.2 MEQ/L Chloride Level 94 MEQ/L Carbon Dioxide Level 29.3 MEQ/L Anion Gap 8 MEQ/L Estimat Glomerular Filtration Rate 114 ML/MIN Culture Results Microbiology Date/Time Source Procedure Growth Status 04/13/17 15:13 Stool Stool Stool Occult Blood ([facility]CKAYLA) - Final HEMOCCULT NEGATIVE Complete Administered Medications Medications (Trade) Dose Ordered Sig/Jaspal Route PRN Reason Start Time Stop Time Status Last Admin Dose Admin Miscellaneous Information 1 [id number] XX 04/05/17 21:30 04/05/17 21:30 Chlorhexidine Gluconate (Chlorhexidine 2% Cloth) Taper DAILY@04 TOP 04/06/17 04:00 04/02/18 03:59 04/08/17 04:00 Sodium Chloride 1,000 ml @ 42 mls/hr [id number] IV 04/05/17 21:18 04/15/17 01:34 Sodium Chloride (NS Flush) 2 ml BID IV FLUSH 04/06/17 09:00 04/14/17 22:33 Acetaminophen/ Hydrocodone Bitart ([place] 5-325 Mg) 1 tab Q4H PRN PO PAIN SCALE 3 TO 5 04/05/17 21:30 04/15/17 10:34 Morphine Sulfate (Morphine Inj) 2 mg Q3H PRN IV Pain 6-10 04/05/17 21:30 04/09/17 16:37 Senna/Docusate Sodium (Jenelle-Colace) 1 tab BID PO 04/06/17 09:00 04/15/17 08:40 Zolpidem Tartrate (Ambien) 5 mg HS PRN PO SLEEP 04/07/17 14:15 04/14/17 22:41 Pantoprazole Sodium (Protonix) 40 mg DAILY PO 04/07/17 15:00 04/15/17 08:40 Prednisone (Deltasone) 20 mg BID PO 04/11/17 21:00 04/15/17 08:40 Lorazepam (Ativan) 0.5 mg Q6HR PRN PO ANXIETY 04/12/17 10:45 04/14/17 03:00 Calcium Carbonate (Tums Chew) 500 mg Q12HR CHEW 04/13/17 09:00 04/15/17 08:40 Enoxaparin Sodium (Lovenox Inj) 60 mg Q12H SQ 04/13/17 15:00 04/15/17 03:52 Metoprolol Tartrate (Lopressor) 25 mg Q12HR PO 04/15/17 09:00 04/15/17 08:42 Objective Remarks GENERAL: appears chronically ill SKIN: Warm and dry. HEAD: Normocephalic. EYES: No scleral icterus. No injection or drainage. NECK: mass left neck is huge and is no smaller since chemotherapy LYMPHATIC: large left neck mass CARDIOVASCULAR: Regular rate and rhythm without murmurs. RESPIRATORY: decreased left lung. GASTROINTESTINAL: Abdomen soft, non-tender, nondistended. EXTREMITIES: swelling left arm +3 and +1 right arm. +2 edema lower extremities. MUSCULOSKELETAL: Adequate muscle tone. NEUROLOGICAL: No obvious focal deficit. Awake, alert, and oriented x3. PSYCHIATRIC: frightened and anxious. Assessment/Plan Assessment 1: lung cancer with left neck mass and mass above vulvar area.-- there is no shrinkage of mass since the chemotherapy and the rapid growth rate of her tumor and the unusual distribution of mets and lack of immediate response to chemotherapy does not romelia will. Last week I sent out tests for EGFR, ALK, Ross and PDL1 and they will be back in another week. 2:DVT will continue lovenex but may soon transition to oral meds such as apixiaban. Her DVT is upper extremity and carries less risk then the legs but she will still require anticoagulation. 3: She is understandably frightened to go home as she is probably dying. I spoke to her about a usp which will be safer and she is agreeable. she remains NO CPR. 4: upper and low extremity edema- will give lasix. - prognosis poor. Cricket Barajas MD Apr 15, 2017 15:22
[2017-04-15] MEDS: LORazepam 0.5 MG TAB PO PRN (17:01)
[2017-04-15] MEDS: FUROSEMIDE 40 MG TAB PO SCH (17:10)
[2017-04-15] MEDS: predniSONE 10 MG TAB PO SCH (22:21)
[2017-04-15] MEDS: ZOLPIDEM TARTRATE 5 MG TAB PO PRN (22:35)
[2017-04-16 00:10] VITALS: BP 92/53; PULSE 107; RESP 18; TEMP 98.6; O2SAT 97
[2017-04-16] MEDS: SODIUM CHLOR 0.9% 1000 ML INJ 1,000 ML IV SCH (01:25)
[2017-04-16] MEDS: CHLORHEXIDINE GLUCONATE 2 % 1 PACK (2 CLOTHS) TOP SCH (01:49)
[2017-04-16] MEDS: ENOXAPARIN SODIUM 60 MG/0.6 ML SYRINGE SQ SCH ×2 (03:32→15:25)
[2017-04-16] MEDS: LORazepam 0.5 MG TAB PO PRN ×3 (03:40→15:25)
[2017-04-16 04:15] VITALS: BP 114/63; PULSE 117; RESP 18; TEMP 97.3; O2SAT 95
[2017-04-16 06:52] LABS: AUTOMATED NEUTROPHIL # 26.3 TH/MM3 (1.8-7.7); BASOPHIL % 0.1 % (0.0-2.0); EOSINOPHIL % 0.1 % (0.0-4.0); HEMATOCRIT 23.5 % (35.0-46.0); HEMO FLAGS DIFF FINAL; LYMPH % 5.1 % (9.0-44.0); LYMPHOCYTE # 1.4 TH/MM3 (1.0-4.8); MEAN CELL VOLUME 82.5 FL (80.0-100.0); MEAN CORPUSCULAR HEMOGLOBIN 26.9 PG (27.0-34.0); MEAN CORPUSCULAR HGB CONC 32.6 % (32.0-36.0); MONO % 0.4 % (0.0-8.0); NEUT % 94.3 % (16.0-70.0); PLATELET COUNT 166 TH/MM3 (150-450); RED BLOOD COUNT 2.84 MIL/MM3 (4.00-5.30); RED CELL DISTRIBUTION WIDTH 16.3 % (11.6-17.2); WHITE BLOOD COUNT 27.8 TH/MM3 (4.0-11.0)
[2017-04-16 07:17] LABS: BICARBONATE 30.2 MEQ/L (21.0-32.0); POTASSIUM 4.1 MEQ/L (3.5-5.1)
[2017-04-16 07:48] LABS: CALCIUM-PROTEIN CORRECTED 8.2 MG/DL (8.5-10.1)
[2017-04-16 08:00] VITALS: BP 107/64; PULSE 125; RESP 20; TEMP 97.4; O2SAT 98
[2017-04-16] MEDS: PANTOPRAZOLE SOD 40 MG DELAYED RELEASE TAB PO SCH (09:29)
[2017-04-16] MEDS: predniSONE 10 MG TAB PO SCH (09:29)
[2017-04-16] MEDS: DOCUSATE SODIUM 50 MG/SENNA 8.6 MG TAB PO SCH (09:29)
[2017-04-16] MEDS: CALCIUM CARBONATE 500 MG CHEWABLE TAB CHEW SCH (09:29)
[2017-04-16] MEDS: FUROSEMIDE 40 MG TAB PO SCH (09:29)
[2017-04-16] MEDS: METOPROLOL TARTRATE 25 MG TAB PO SCH (09:30)
[2017-04-16] MEDS: SODIUM CHLORIDE 0.9% FLUSH 10 ML FLUSH IV FLUSH SCH (09:30)
[2017-04-16 12:00] VITALS: BP 125/83; PULSE 115; RESP 18; TEMP 97.3; O2SAT 97
--- NOTE | 2017-04-16 13:10 | HHI.PR ---
Subjective Remarks This is a pleasant 71 y/o Female who came due to a neck mass, On 04/05/2017 CT of the thorax shows a large malignant appearing mass involving the left lower lobe extending to the pleura and encases and obliterates the left lower lobe pulmonary artery. PE was negative. There is movement this time no adenopathy. There is a 11 mm right lower lobe pulmonary nodule and a few scattered sub-4 mm pulmonary nodules involving the left upper lobe. Patient underwent a thoracentesis. Pathology of the pleural fluid was negative for malignant cells. In the meantime patient displays exertional shortness of breath and an enlarging mass on the left lobe of the lung, a mass in the right posterior back and a mass above the left vulva area, and a mass at at the left neck. 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 Poor prognosis. Seen in her bedroom and discussed with interactive digital media specialist, continue present care. Objective Vital Signs Date Time Temp Pulse Resp B/P (MAP) Pulse Ox O2 Delivery O2 Flow Rate FiO2 04/16/17 08:21 Nasal Cannula 1.50 04/16/17 08:00 97.4 125 20 107/64 (78) 98 04/16/17 04:15 97.3 117 18 114/63 (80) 95 04/16/17 00:10 98.6 107 18 92/53 (66) 97 04/15/17 22:25 119 101/54 (70) 04/15/17 20:25 Nasal Cannula 1.50 04/15/17 20:10 97.8 115 17 105/52 (69) 97 04/15/17 16:00 96.0 110 20 97/52 (67) 98 I/O 04/15/17 04/15/17 04/15/17 04/16/17 04/16/17 04/16/17 07:00 15:00 23:00 07:00 15:00 23:00 Intake Total 720 ml 1250 ml Output Total 500 ml 600 ml 1350 ml Balance -500 ml 120 ml -100 ml Intake Oral 720 ml 150 ml IV Total 1100 ml Output Urine Total 500 ml 600 ml 1350 ml # Voids 1 3 # Bowel Movements 0 Result Diagram: 04/16/1762404/16/17624 Imaging Last Impressions Upper Extremity Ultrasound 04/13/17 0000 Signed Impressions: Service Date/Time: Thursday, April 13, 2017 11:26 - CONCLUSION: Deep and superficial thrombosis in the right upper extremity with patent axillary vein. Nonocclusive thrombus left cephalic vein with patent brachial vein. Adal Dang MD FACR Abdomen/Pelvis CT 04/09/17 0600 Signed Impressions: Service Date/Time: Sunday, April 09, 2017 11:30 - CONCLUSION: Patient demonstrates the following significant abnormalities: 1. Ascitic fluid in the pelvis. 2. In the left pelvis there is a 4.3 cm complex solid mass suggestive of ovarian mass, possible ovarian carcinoma. 3. Bilateral adrenal glands have masses on the right 1.6 on the left 1.3 cm in size highly suspect of representing metastatic disease. Ji Beard MD Chest X-Ray 04/08/17 0000 Signed Impressions: Service Date/Time: Saturday, April 08, 2017 14:20 - CONCLUSION: 1. Power port in good position. No pneumothorax. 2. Complete opacification of the left lung secondary to effusion and infiltrate. Vadim Fisher Jr., MD Thoracentesis Ultrasound 04/05/17 0000 Signed Impressions: Service Date/Time: Wednesday, April 05, 2017 19:01 - CONCLUSION: Uncomplicated ultrasound guided left thoracentesis. Vadim Fisher Jr., MD CT Angiography 04/05/17 0000 Signed Impressions: Service Date/Time: Wednesday, April 05, 2017 20:29 - CONCLUSION: 1. Large, malignant appearing mass of the left lower lobe. The mass involves the pleural and encases/obliterates the left lower lobe pulmonary artery. There is no pulmonary embolus. 2. Metastatic mediastinal lymphadenopathy. 3. 11 mm right lower lobe pulmonary nodule and a few scattered sub-4 mm pulmonary nodules of the left upper lobe will need attention on followup imaging. 4. Reexpansion edema the left upper lobe. The patient is status post left-sided thoracentesis. No pneumothorax. 5. Coronary artery calcification. 6. Nonspecific lobular contour of the liver. Cirrhosis and metastatic disease would be in the differential. There is also fullness of the left adrenal gland and apparent thickening of the visualized stomach. Kyler Parisi MD Procedures 04/05- left thoracentesis 04/08/2017 PROCEDURE PERFORMED 1. Right subclavian [id number] with intraoperative fluoroscopy. 2. Excisional biopsy subcutaneous mass right back. Other Results Laboratory Tests Test 04/05/17 17:20 04/05/17 19:35 04/05/17 20:20 04/05/17 22:10 Prothrombin Time 12.8 SEC Prothromb Time International Ratio 1.2 RATIO Activated Partial Thromboplast Time 30.0 SEC Total Creatine Kinase 17 U/L Troponin I LESS THAN 0.02 NG/ML Body Fluid Amylase Source PLEURAL Body Fluid Amylase 31 U/L Pleural Fluid pH 8.5 Pleural Fluid WBC 700 /MM3 Pleural Fluid RBC 3730 /MM3 Pleural Fluid Neutrophils 19 % Pleural Fluid Lymphocytes 70 % Pleural Fluid Monocytes 11 % Pleural Fluid Total Protein 3.4 GM/DL Pleural Fluid LDH 171 U/L Pleural Fluid Glucose 142 MG/DL Lactic Acid Level 1.6 mmol/L Nasal Screen MRSA (PCR) MRSA NOT DETECTED Test 04/06/17 08:53 04/06/17 12:30 04/06/17 15:00 04/07/17 14:52 Blood Urea Nitrogen 10 MG/DL Creatinine 0.35 MG/DL Random Glucose 100 MG/DL Total Protein 6.0 GM/DL Albumin 1.2 GM/DL Calcium Level 7.6 MG/DL Alkaline Phosphatase 112 U/L Aspartate Amino Transf (AST/SGOT) 25 U/L Alanine Aminotransferase (ALT/SGPT) 17 U/L Total Bilirubin 0.8 MG/DL Sodium Level 125 MEQ/L Potassium Level 3.7 MEQ/L Chloride Level 91 MEQ/L Carbon Dioxide Level 23.0 MEQ/L Lactate Dehydrogenase 285 U/L Hematology Comments Carcinoembryonic Antigen 1.6 NG/ML Blood Gas Puncture Site RT RADIAL Blood Gas Patient Temperature 98.6 Blood Gas HCO3 25 mmol/L Blood Gas Base Excess 1.5 mmol/L Blood Gas Oxygen Saturation 94 % Arterial Blood pH 7.45 Arterial Blood Partial Pressure CO2 37 mmHg Arterial Blood Partial Pressure O2 83 mmHg Arterial Blood Oxygen Content 11.8 Vol % Arterial Blood Carboxyhemoglobin 2.1 % Arterial Blood Methemoglobin 1.1 % Blood Gas Hemoglobin 8.9 G/DL Oxygen Delivery Device NASAL CANNULA Blood Gas Liter Flow 1.5 L/M Test 04/09/17 10:50 04/10/17 08:37 04/13/17 05:30 04/15/17 05:30 Vancomycin Level Trough 29.4 MCG/ML Random Vancomycin Level 20.6 COMMENT Monocytes % 3 % Differential Total Cells Counted 100 Neutrophils % (Manual) 98 % Band Neutrophils % 1 % Lymphocytes % 1 % Neutrophils # (Manual) 29.8 TH/MM3 Platelet Estimate NORMAL Platelet Morphology Comment NORMAL Red Cell Morphology Comment NORMAL Test 04/16/17 06:25 White Blood Count 27.8 TH/MM3 Red Blood Count 2.84 MIL/MM3 Hemoglobin 7.7 GM/DL Hematocrit 23.5 % Mean Corpuscular Volume 82.5 FL Mean Corpuscular Hemoglobin 26.9 PG Mean Corpuscular Hemoglobin Concent 32.6 % Red Cell Distribution Width 16.3 % Platelet Count 166 TH/MM3 Mean Platelet Volume 8.6 FL Neutrophils (%) (Auto) 94.3 % Lymphocytes (%) (Auto) 5.1 % Monocytes (%) (Auto) 0.4 % Eosinophils (%) (Auto) 0.1 % Basophils (%) (Auto) 0.1 % Neutrophils # (Auto) 26.3 TH/MM3 Lymphocytes # (Auto) 1.4 TH/MM3 Monocytes # (Auto) 0.1 TH/MM3 Eosinophils # (Auto) 0.0 TH/MM3 Basophils # (Auto) 0.0 TH/MM3 CBC Comment DIFF FINAL Differential Comment Blood Urea Nitrogen 36 MG/DL Creatinine 0.61 MG/DL Random Glucose 113 MG/DL Total Protein 5.4 GM/DL Calcium Level 7.3 MG/DL Magnesium Level 2.0 MG/DL Sodium Level 133 MEQ/L Potassium Level 4.1 MEQ/L Chloride Level 96 MEQ/L Carbon Dioxide Level 30.2 MEQ/L Anion Gap 7 MEQ/L Estimat Glomerular Filtration Rate 97 ML/MIN Protein Corrected Calcium 8.2 MG/DL Objective Remarks GENERAL: Alert, oriented 3, NC in place. sitting up on side of bed SKIN: Warm and dry. HEAD: A large mass protruding from her left jaw. EYES: EOMI NECK: trachea midline. No JVD or lymphadenopathy. CARDIOVASCULAR: tachycardic but regular without murmurs. RESPIRATORY: Breath sounds equal bilaterally. No accessory muscle use. no wheezes GASTROINTESTINAL: Abdomen soft, non-tender, nondistended. MUSCULOSKELETAL: No edema. clubbing noted on her fingers Medications and IVs Current Medications Medications (Trade) Dose Ordered Sig/Jaspal Route Start Time Stop Time Status Last Admin Miscellaneous Information 1 Q361D XX 04/05/17 21:30 04/05/17 21:30 (Chlorhexidine 2% Cloth) Taper DAILY@04 TOP 04/06/17 04:00 04/02/18 03:59 04/08/17 04:00 (Chlorhexidine 2% Cloth) 3 pack UNSCH PRN TOP 04/05/17 21:30 Sodium Chloride 1,000 ml @ 42 mls/hr [id number] IV 04/05/17 21:18 04/16/17 01:25 (NS Flush) 2 ml UNSCH PRN IV FLUSH 04/05/17 21:30 (NS Flush) 2 ml BID IV FLUSH 04/06/17 09:00 04/16/17 09:30 (Zofran Inj) 4 mg Q6H PRN IVP 04/05/17 21:30 (Tylenol) 650 mg Q6H PRN PO 04/05/17 21:30 ([place] 5-325 Mg) 1 tab Q4H PRN PO 04/05/17 21:30 04/15/17 10:34 (Morphine Inj) 2 mg Q3H PRN IV 04/05/17 21:30 04/09/17 16:37 (Jenelle-Colace) 1 tab BID PO 04/06/17 09:00 04/16/17 09:29 (Milk Of Magnesia Liq) 30 ml Q12H PRN PO 04/05/17 21:30 (Senokot) 17.2 mg Q12H PRN PO 04/05/17 21:30 (Dulcolax Supp) 10 mg DAILY PRN RECTAL 04/05/17 21:30 (Lactulose Liq) 30 ml DAILY PRN PO 04/05/17 21:30 (Ambien) 5 mg HS PRN PO 04/07/17 14:15 04/15/17 22:35 (Protonix) 40 mg DAILY PO 04/07/17 15:00 04/16/17 09:29 (Ativan) 0.5 mg Q6HR PRN PO 04/12/17 10:45 04/16/17 09:29 (Tums Chew) 500 mg Q12HR CHEW 04/13/17 09:00 04/16/17 09:29 (Lovenox Inj) 60 mg Q12H SQ 04/13/17 15:00 04/16/17 03:32 (Duoneb Neb) 1 ampule Q6HR NEB PRN NEB 04/14/17 10:00 (Pill Splitter) 1 ea UNSCH PRN OTHER 04/14/17 13:15 (Lopressor) 25 mg Q12HR PO 04/15/17 09:00 04/16/17 09:30 (Deltasone) 10 mg BID PO 04/15/17 21:00 04/16/17 09:29 (Lasix) 40 mg BID@09,18 PO 04/15/17 18:00 04/16/17 09:29 A/P Assessment and Plan 71 years old female admitted secondary to acute respiratory distress with lung mass and evidence of metastasis. Metastatic Primary lung cancer Pleural effusion anxiety Biopsy of the mass on her back shows poorly differentiated non-small cell carcinoma consistent with lung primary. s/p thoracentesis for pleural effusion. Pleural fluid cytology did not show any evidence of malignant cells. Oncology started chemotherapy. CM has been consulted for assistance w d/c planning. walk test ordered. PT recommends wheeled walker and home health PT. d/c when cleared by oncology ativan prn anxiety Acute respiratory distress Pneumonia Possibly post-obstructive pneumonia. Discontinued vancomycin and cefepime. Continue Levaquin 750 mg by mouth daily. We can probably continue by mouth antibiotics for 1 more day. IS ordered at the bedside. Encouraged use. duoneb q6hrs prn Hyponatremia Sodium stable at 131-133 Possibly SIADH vs from poor oral intake. Continue to monitor. Hypocalcemia on Tums BID continue to monitor trend Anemia appears stable continue to monitor Leukocytosis likely secondary to stress rxn and cancer patient is afebrile. does not appear septic. continue to monitor. CBC in am ordered. Tachycardia HR 116 EKG reviewed by me and shows sinus tach on metoprolol 12.5mg po TID will increase to 25mg po BID BUE edema L>R Bilateral US showing superficial and deep thrombosis of the right upper extremity w patent axillary vein and non occlusive thrombus left cephalic and patent brachia vein. hematology started pt on lovenox 60mg q12hrs Discharge Planning Awaiting Clearance by hub inventory specialist. Ej Oropeza MD Apr 16, 2017 13:10
[2017-04-16] MEDS ORDERED: PRED10 PO (15:22)
[2017-04-16] MEDS ORDERED: METO25TA3 PO (15:22)
[2017-04-16] MEDS ORDERED: ENOX60P SQ (15:22)
[2017-04-16] MEDS ORDERED: Calcium Carbonate Chew CHEW (15:22)
[2017-04-16] MEDS ORDERED: IPRASOL NEB (15:22)
[2017-04-16] MEDS ORDERED: HYDR-3516 PO (15:22)
[2017-04-16] MEDS ORDERED: FURO40TA PO (15:22)
--- NOTE | 2017-04-16 15:26 | HHI.DS ---
Discharge Summary Admission Date Apr 05, 2017 at 21:20 Discharge Date: Apr 16, 2017 Admitting Diagnosis lung mass, metastatic disease, pleural effusion, sepsis (1) Sepsis ICD Code: A41.9 - Sepsis, unspecified organism Diagnosis: Principal Status: Acute (2) Metastatic disease ICD Code: C79.9 - Secondary malignant neoplasm of unspecified site Diagnosis: Principal Status: Acute (3) Pleural effusion ICD Code: J90 - Pleural effusion, not elsewhere classified Diagnosis: Principal Status: Acute (4) Hyponatremia ICD Code: E87.1 - Hypo-osmolality and hyponatremia Diagnosis: Principal Status: Acute Procedures 04/05- left thoracentesis 04/08/2017 PROCEDURE PERFORMED 1. Right subclavian [id number] with intraoperative fluoroscopy. 2. Excisional biopsy subcutaneous mass right back. Brief History - From Admission This is a 71-year-old female with no significant PMH reported who presented to the ER with complaints of SOB x1 month. States she noted left neck mass approx 1mo ago at the time symptoms started, was also told she has pelvic mass, scheduled for appt w/ Oncology on Saturday, however pt doesn't know name of physician. Today, SOB progressively worse. Denies fever, chills, cough or sick contacts. On arrival, BP 121/60, HR 122, O2 sat 99% on RA, Afebrile. WBC 29.3. Hemoglobin 9.1. Na 121. Lactic Acid 2.2, repeat 1.6. Negative. INR 1.2. CXR with large left pleural effusion with associated volume loss and or consolidation. S/p Thoracentesis by IR w/ removal of 1900cc bloody fluid, CTA Pulm negative for PE, found to have large malignant appearing mass LLL which obliterates left pulm artery, re-expansion edema in OLVIN, possible metastatic disease to liver. Pt previously unaware of these findings. S/p Blood Culture, Rocephin/Zitho in ER. CBC/BMP: 04/16/17 0625 04/16/17 0625 Significant Findings Laboratory Tests Test 04/14/17 04:30 04/15/17 05:30 04/16/17 06:25 White Blood Count 27.5 TH/MM3 (4.0-11.0) 30.1 TH/MM3 (4.0-11.0) 27.8 TH/MM3 (4.0-11.0) Red Blood Count 3.18 MIL/MM3 (4.00-5.30) 3.18 MIL/MM3 (4.00-5.30) 2.84 MIL/MM3 (4.00-5.30) Hemoglobin 8.5 GM/DL (11.6-15.3) 8.4 GM/DL (11.6-15.3) 7.7 GM/DL (11.6-15.3) Hematocrit 26.4 % (35.0-46.0) 26.4 % (35.0-46.0) 23.5 % (35.0-46.0) Mean Corpuscular Hemoglobin 26.6 PG (27.0-34.0) 26.5 PG (27.0-34.0) 26.9 PG (27.0-34.0) Neutrophils (%) (Auto) 93.9 % (16.0-70.0) 96.5 % (16.0-70.0) 94.3 % (16.0-70.0) Lymphocytes (%) (Auto) 4.7 % (9.0-44.0) 3.1 % (9.0-44.0) 5.1 % (9.0-44.0) Neutrophils # (Auto) 25.8 TH/MM3 (1.8-7.7) 29.0 TH/MM3 (1.8-7.7) 26.3 TH/MM3 (1.8-7.7) Blood Urea Nitrogen 25 MG/DL (7-18) 30 MG/DL (7-18) 36 MG/DL (7-18) Random Glucose 138 MG/DL (74-106) 137 MG/DL (74-106) 113 MG/DL (74-106) Total Protein 5.4 GM/DL (6.4-8.2) 5.4 GM/DL (6.4-8.2) Calcium Level 7.1 MG/DL (8.5-10.1) 7.5 MG/DL (8.5-10.1) 7.3 MG/DL (8.5-10.1) Sodium Level 133 MEQ/L (136-145) 131 MEQ/L (136-145) 133 MEQ/L (136-145) Chloride Level 94 MEQ/L (98-107) 94 MEQ/L (98-107) 96 MEQ/L (98-107) Protein Corrected Calcium 8.0 MG/DL (8.5-10.1) 8.2 MG/DL (8.5-10.1) Lymphocytes # (Auto) 0.9 TH/MM3 (1.0-4.8) Neutrophils % (Manual) 98 % (16-70) Lymphocytes % 1 % (9-44) Neutrophils # (Manual) 29.8 TH/MM3 (1.8-7.7) Imaging Last Impressions Upper Extremity Ultrasound 04/13/17 0000 Signed Impressions: Service Date/Time: Thursday, April 13, 2017 11:26 - CONCLUSION: Deep and superficial thrombosis in the right upper extremity with patent axillary vein. Nonocclusive thrombus left cephalic vein with patent brachial vein. Adal Dang MD FACR Abdomen/Pelvis CT 04/09/17 0600 Signed Impressions: Service Date/Time: Sunday, April 09, 2017 11:30 - CONCLUSION: Patient demonstrates the following significant abnormalities: 1. Ascitic fluid in the pelvis. 2. In the left pelvis there is a 4.3 cm complex solid mass suggestive of ovarian mass, possible ovarian carcinoma. 3. Bilateral adrenal glands have masses on the right 1.6 on the left 1.3 cm in size highly suspect of representing metastatic disease. Ji Beard MD Chest X-Ray 04/08/17 0000 Signed Impressions: Service Date/Time: Saturday, April 08, 2017 14:20 - CONCLUSION: 1. Power port in good position. No pneumothorax. 2. Complete opacification of the left lung secondary to effusion and infiltrate. Vadim Fisher Jr., MD Thoracentesis Ultrasound 04/05/17 0000 Signed Impressions: Service Date/Time: Wednesday, April 05, 2017 19:01 - CONCLUSION: Uncomplicated ultrasound guided left thoracentesis. Vadim Fisher Jr., MD CT Angiography 04/05/17 0000 Signed Impressions: Service Date/Time: Wednesday, April 05, 2017 20:29 - CONCLUSION: 1. Large, malignant appearing mass of the left lower lobe. The mass involves the pleural and encases/obliterates the left lower lobe pulmonary artery. There is no pulmonary embolus. 2. Metastatic mediastinal lymphadenopathy. 3. 11 mm right lower lobe pulmonary nodule and a few scattered sub-4 mm pulmonary nodules of the left upper lobe will need attention on followup imaging. 4. Reexpansion edema the left upper lobe. The patient is status post left-sided thoracentesis. No pneumothorax. 5. Coronary artery calcification. 6. Nonspecific lobular contour of the liver. Cirrhosis and metastatic disease would be in the differential. There is also fullness of the left adrenal gland and apparent thickening of the visualized stomach. Kyler Parisi MD PE at Discharge GENERAL: Alert, oriented 3, NC in place. sitting up on side of bed SKIN: Warm and dry. HEAD: A large mass protruding from her left jaw. EYES: EOMI NECK: trachea midline. No JVD or lymphadenopathy. CARDIOVASCULAR: tachycardic but regular without murmurs. RESPIRATORY: Breath sounds equal bilaterally. No accessory muscle use. no wheezes GASTROINTESTINAL: Abdomen soft, non-tender, nondistended. MUSCULOSKELETAL: No edema. clubbing noted on her fingers Hospital Course This is a pleasant 71 y/o Female who came due to a neck mass, On 04/05/2017 CT of the thorax shows a large malignant appearing mass involving the left lower lobe extending to the pleura and encases and obliterates the left lower lobe pulmonary artery. PE was negative. There is movement this time no adenopathy. There is a 11 mm right lower lobe pulmonary nodule and a few scattered sub-4 mm pulmonary nodules involving the left upper lobe. Patient underwent a thoracentesis. Pathology of the pleural fluid was negative for malignant cells. In the meantime patient displays exertional shortness of breath and an enlarging mass on the left lobe of the lung, a mass in the right posterior back and a mass above the left vulva area, and a mass at at the left neck. 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 Poor prognosis. Seen in her bedroom and discussed with specialist employee labor relations, continue present care. 04/05- left thoracentesis 04/08/2017 PROCEDURE PERFORMED 1. Right subclavian [id number] with intraoperative fluoroscopy. 2. Excisional biopsy subcutaneous mass right back. Assessment and Plan 71 years old female admitted secondary to acute respiratory distress with lung mass and evidence of metastasis. Metastatic Primary lung cancer Pleural effusion anxiety Biopsy of the mass on her back shows poorly differentiated non-small cell carcinoma consistent with lung primary. s/p thoracentesis for pleural effusion. Pleural fluid cytology did not show any evidence of malignant cells. Oncology started chemotherapy. CM has been consulted for assistance w d/c planning. walk test ordered. PT recommends wheeled walker and home health PT. d/c when cleared by oncology ativan prn anxiety Acute respiratory distress Pneumonia Possibly post-obstructive pneumonia. Discontinued vancomycin and cefepime. Continue Levaquin 750 mg by mouth daily. We can probably continue by mouth antibiotics for 1 more day. IS ordered at the bedside. Encouraged use. duoneb q6hrs prn Hyponatremia Sodium stable at 131-133 Possibly SIADH vs from poor oral intake. Continue to monitor. Hypocalcemia on Tums BID continue to monitor trend Anemia appears stable continue to monitor Leukocytosis likely secondary to stress rxn and cancer patient is afebrile. does not appear septic. continue to monitor. CBC in am ordered. Tachycardia HR 116 EKG reviewed by me and shows sinus tach on metoprolol 12.5mg po TID will increase to 25mg po BID BUE edema L>R Bilateral US showing superficial and deep thrombosis of the right upper extremity w patent axillary vein and non occlusive thrombus left cephalic and patent brachia vein. hematology started pt on lovenox 60mg q12hrs Discharge Planning Discharge to SNF now as per predictive maintenance specialist Very Short Poor Prognosis. Pt Condition on Discharge: Stable Discharge Disposition: Discharge to SNF Discharge Time: > 30 minutes Discharge Instructions DIET: Follow Instructions for: As Tolerated, No Restrictions Activities you can perform: Regular-No Restrictions Ej Oropeza MD Apr 16, 2017 15:26
[2017-04-16 16:18] VITALS: O2SAT 97
== END 2017-04-16 17:20 | DRG 853 ==
LOC: NEPD 16:41 → NEDA 21:20 → HIMN 22:55 → HOCA 04-09 18:23
PROVIDERS: ADMIT Internal Medicine; ATTEND Internal Medicine
PROC: 0W9B3ZX Drainage of Left Pleural Cavity, Percutaneous Approach, Diagnostic (ICD-10-PCS; 2017-04-05)
PROC: 0W9B3ZZ Drainage of Left Pleural Cavity, Percutaneous Approach (ICD-10-PCS; 2017-04-05)
PROC: 02HV33Z Insertion of Infusion Device into Superior Vena Cava, Percutaneous Approach (ICD-10-PCS; 2017-04-08)
PROC: 0JH63XZ Insertion of Tunneled Vascular Access Device into Chest Subcutaneous Tissue and Fascia, Percutaneous Approach (ICD-10-PCS; 2017-04-08)
PROC: 0JB70ZZ Excision of Back Subcutaneous Tissue and Fascia, Open Approach (ICD-10-PCS; principal; 2017-04-08 12:26)
DX: A41.9 Sepsis, unspecified organism (principal); J18.9 Pneumonia, unspecified organism; J90 Pleural effusion, not elsewhere classified; C79.89 Secondary malignant neoplasm of other specified sites; E22.2 Syndrome of inappropriate secretion of antidiuretic hormone; I82.A19 Acute embolism and thrombosis of unspecified axillary vein; E83.51 Hypocalcemia; J44.0 Chronic obstructive pulmonary disease with (acute) lower respiratory infection; C77.1 Secondary and unspecified malignant neoplasm of intrathoracic lymph nodes; C34.32 Malignant neoplasm of lower lobe, left bronchus or lung; I82.613 Acute embolism and thrombosis of superficial veins of upper extremity, bilateral; R04.2 Hemoptysis; K70.30 Alcoholic cirrhosis of liver without ascites; D64.9 Anemia, unspecified; F10.21 Alcohol dependence, in remission; F41.0 Panic disorder [episodic paroxysmal anxiety]; N83.9 Noninflammatory disorder of ovary, fallopian tube and broad ligament, unspecified; R19.00 Intra-abdominal and pelvic swelling, mass and lump, unspecified site; R22.1 Localized swelling, mass and lump, neck; Z87.891 Personal history of nicotine dependence
CPT/HCPCS: 32555; 36600; 71010; 71275; 74177; 76937; 77001; 80048; 80053; 80202; 81210; 81235; 82150; 82272; 82378; 82550; 82805; 82945; 83605; 83615; 83735; 83986; 84155; 84157; 84484; 85007; 85025; 85027; 85610; 85730; 87040; 87070; 87205; 87641; 88305; 88307; 88341; 88342; 88360; 88377; 88381; 89051; 93005; 93970; 94150; 94640; 94664; 96361; 96365; 96367; C1729; C1788; J0456; J0692; J0696; J1626; J1644; J1650; J2250; J2270; J2370; J2405; J2920; J2930; J3010; J3370; J7030; J7050; J7120; J7512; J9045; J9267; Q9963; Q9967

== ENCOUNTER 2017-04-19 10:52 | Inpatient (IN) | payer MEDICARE ==
[~2017-04-19] VITALS: Ht 165.1 cm; Wt 74.1 kg
[2017-04-19] VITALS (18 sets, daily range): BP systolic 78–133; BP diastolic 41–66; PULSE 103–125; RESP 18–32; TEMP 96.6–98.8; O2SAT 90–100
[~2017-04-19 10:52] MED LIST changes: +Calcium Carbonate Chew CHEW; +ENOX60P SQ; +FURO40TA PO; +HYDR-3516 PO; +IPRASOL NEB; +METO25TA3 PO; +PRED10 PO; +PRIL20TA2 PO; -Z.0.NO CURRENT MEDS
--- NOTE | 2017-04-19 11:38 | PD ---
HPI Chief Complaint: Abnormal Results Time Seen by Provider: 10:56 Travel History International Travel<30 days: No Contact w/Intl Traveler<30days: No Traveled to known affect area: No History of Present Illness HPI This is a 8-year-old female with unfortunate history of metastatic lung cancer, who presents here today with complaints of being told to come to the hospital for a blood transfusion. The patient states that she had blood work done and received a call today stating her hemoglobin was 7.0 and she needed to come in for a transfusion. The patient reports shortness of breath and weakness. She reports a metastatic lesion to her left neck and vagina. The patient denies any chest pain, chest pressure. She does report diffuse edema which is not new. She states she's had previous blood clots in her legs and arms. She is currently on anticoagulation. PFSH Past Medical History Hx Anticoagulant Therapy: No Autoimmune Disease: No Cancer: Yes Cardiovascular Problems: No Chemotherapy: No Cirrhosis: Yes Diminished Hearing: No Endocrine: No Genitourinary: No Immune Disorder: No Musculoskeletal: No Neurologic: No Reproductive: No Respiratory: No Radiation Therapy: No Ulcer: Yes (bleeding ulcer 6 years ago) Past Surgical History Oral Surgery: Yes (left wrist sx) Other Surgery: No Social History Alcohol Use: No (quit 30 years ago) Tobacco Use: No Substance Use: No Allergies-Medications (Allergen,Severity, Reaction): Coded Allergies: No Known Allergies (Unverified , 04/19/17) Reported Meds & Prescriptions Reported Meds & Active Scripts Active Prednisone 10 Mg Tab 10 Mg PO BID TAKE ONE TABLET BY MOUTH TWICE A DAY FOR FOUR DAYS THEN TAKE ONE TABLET BY MOUTH DAILY FOR FOUR DAYS. [Calcium Carbonate Chew] 500 MG Chew 500 Mg CHEW Q12HR Furosemide 40 Mg Tab 40 Mg PO BID@18 Hydrocodone-Acetaminophen 5-325 mg Tab 1 Tab PO Q4H PRN Metoprolol Tartrate 25 Mg Tab 25 Mg PO Q12HR Lovenox Inj (Enoxaparin Sodium) 60 Mg/0.6 Ml Syr 60 Mg SQ Q12H Duoneb (Ipratropium-Albuterol Neb) 0.5-2.5 Mg/3 Ml Neb 1 Ampule NEB Q6HR NEB PRN Reported Prilosec (Omeprazole Magnesium) 20 Mg Tab 20 Tab PO DAILY Review of Systems Except as stated in HPI: all other systems reviewed are Neg General / Constitutional: No: Fever, Chills HENT: Positive: Masses (left neck mass), No: Headaches Cardiovascular: Positive: Tachycardia, No: Chest Pain or Discomfort, Palpitations Respiratory: Positive: Shortness of Breath, No: Cough, Wheezing Gastrointestinal: No: Nausea, Vomiting, Abdominal Pain Genitourinary: Positive: Other (vaginal mass which is metastatic from her lung cancer), No: Incontinence Musculoskeletal: Positive: Weakness, No: Pain Neurologic: Positive: Weakness, No: Dizziness, Headache Physical Exam Narrative GENERAL: Well-developed ill appearing female in moderate respiratory discomfort. SKIN: Focused skin assessment warm/dry. She has a large left sided neck mass which is not new. HEAD: Atraumatic. Normocephalic. EYES: Pupils equal and round.nasal bleeding or discharge. Mucous membranes pink and moist. NECK: Trachea midline. Supple. CARDIOVASCULAR: Regular rate and rhythm. No murmur appreciated. RESPIRATORY: Mild to moderate respiratory discomfort. The patient has decreased breath sounds in the left side. The patient reports she has a large lung mass on her left side. GASTROINTESTINAL: Abdomen soft, non-tender, nondistended. MUSCULOSKELETAL: No obvious deformities. No clubbing. No cyanosis. No edema. NEUROLOGICAL: Awake and alert. No obvious cranial nerve deficits. Motor grossly within normal limits. Normal speech. Data Data Last Documented VS Vital Signs Date Time Temp Pulse Resp B/P (MAP) Pulse Ox O2 Delivery O2 Flow Rate FiO2 04/19/17 11:24 100 Nasal Cannula 3.00 04/19/17 11:07 97.7 125 32 133/66 (88) Orders Orders Complete Blood Count With Diff (04/19/17 11:18) Comprehensive Metabolic Panel (04/19/17 11:18) Prothrombin Time / Inr (Pt) (04/19/17 11:18) Act Partial Throm Time (Ptt) (04/19/17 11:18) Chest, Single Ap (04/19/17 11:18) Iv Access Insert/Monitor (04/19/17 11:18) Ecg Monitoring (04/19/17 11:18) Oximetry (04/19/17 11:18) Type And Screen (04/19/17 11:18) Red Blood Cells (Rbc) (04/19/17 11:18) Lorazepam Inj (Ativan Inj) (04/19/17 12:45) Ct Guided Thoracentesis (04/19/17 ) Vital Signs (Adult) Q4H (04/19/17 13:04) Activity Oob With Assistance (04/19/17 13:04) Diet Regular Basic (04/19/17 Lunch) Sodium Chlor 0.9% 1000 Ml Inj (Ns 1000 M (04/19/17 13:04) Sodium Chloride 0.9% Flush (Ns Flush) (04/19/17 13:15) Sodium Chloride 0.9% Flush (Ns Flush) (04/19/17 21:00) Acetaminophen (Tylenol) (04/19/17 13:15) Ondansetron Inj (Zofran Inj) (04/19/17 13:15) Complete Blood Count With Diff (04/20/17 06:00) Resp Oxygen Farhat C Titrat 1-4 L (04/19/17 ) Scd Bilateral/Knee High JOVANNA.BID (04/19/17 13:04) Naloxone Inj (Narcan Inj) (04/19/17 13:15) Docusate Sodium-Senna (Jenelle-Colace) (04/19/17 21:00) Magnesium Hydroxide Liq (Milk Of Magnesi (04/19/17 13:15) Sennosides (Senokot) (04/19/17 13:15) Bisacodyl Supp (Dulcolax Supp) (04/19/17 13:15) Lactulose Liq (Lactulose Liq) (04/19/17 13:15) Iron/Tibc Profile (04/19/17 13:04) Ferritin (04/19/17 13:04) Admit Order (Ed Use Only) (04/19/17 13:06) Labs Laboratory Tests Test 04/19/17 11:30 White Blood Count 10.4 TH/MM3 Red Blood Count 2.52 MIL/MM3 Hemoglobin 6.7 GM/DL Hematocrit 21.0 % Mean Corpuscular Volume 83.0 FL Mean Corpuscular Hemoglobin 26.6 PG Mean Corpuscular Hemoglobin Concent 32.1 % Red Cell Distribution Width 16.5 % Platelet Count 107 TH/MM3 Mean Platelet Volume 8.9 FL Neutrophils (%) (Auto) 84.5 % Lymphocytes (%) (Auto) 9.5 % Monocytes (%) (Auto) 5.0 % Eosinophils (%) (Auto) 0.7 % Basophils (%) (Auto) 0.3 % Neutrophils # (Auto) 8.8 TH/MM3 Lymphocytes # (Auto) 1.0 TH/MM3 Monocytes # (Auto) 0.5 TH/MM3 Eosinophils # (Auto) 0.1 TH/MM3 Basophils # (Auto) 0.0 TH/MM3 CBC Comment AUTO DIFF Differential Comment AUTO DIFF CONFIRMED Platelet Estimate LOW Platelet Morphology Comment ENLARGED Prothrombin Time 12.1 SEC Prothromb Time International Ratio 1.1 RATIO Activated Partial Thromboplast Time 33.4 SEC Blood Urea Nitrogen 37 MG/DL Creatinine 0.74 MG/DL Random Glucose 134 MG/DL Total Protein 5.3 GM/DL Albumin 1.3 GM/DL Calcium Level 7.6 MG/DL Alkaline Phosphatase 86 U/L Aspartate Amino Transf (AST/SGOT) 17 U/L Alanine Aminotransferase (ALT/SGPT) 18 U/L Total Bilirubin 0.6 MG/DL Sodium Level 129 MEQ/L Potassium Level 3.6 MEQ/L Chloride Level 92 MEQ/L Carbon Dioxide Level 29.1 MEQ/L Anion Gap 8 MEQ/L Estimat Glomerular Filtration Rate 78 ML/MIN [facility] Medical Decision Making Medical Screen Exam Complete: Yes Emergency Medical Condition: Yes Differential Diagnosis Symptomatic anemia versus metabolic drainage been versus left pleural effusion Narrative Course 71 year-old female presents at the request of her oncologist for low hemoglobin and need for transfusion. The patient has unfortunate history of metastatic lung cancer. The patient also has recurrent left lung pleural effusion. She's had this previously drained. Hemoglobin is 6.1 here. She's been typed and crossed for 2 units of packed red blood cells. She'll be transfused 2 units of packed red blood cells. She also have a CT-guided thoracentesis. Case was discussed with Dr. Adal Dang, interventional radiologist who is agreeable to perform the thoracentesis. She is currently taking Lovenox. Her INR is 1.1. There is a call out to the [facility] hospitalist service. The patient also has a sodium of 129. She will be given Lasix between her 2 units of packed red blood cells. Diagnosis Primary Impression: Symptomatic anemia Additional Impressions: large left pleural effusion metastatic non-small cell carcinoma Anasarca Hyponatremia Admitting Information Admitting Physician Requests: Admit Keith Banks MD Apr 19, 2017 11:38
[2017-04-19 11:46] LABS: AUTOMATED NEUTROPHIL # 8.8 TH/MM3 (1.8-7.7); BASOPHIL % 0.3 % (0.0-2.0); EOSINOPHIL # 0.1 TH/MM3 (0-0.4); EOSINOPHIL % 0.7 % (0.0-4.0); LYMPH % 9.5 % (9.0-44.0); MEAN CORPUSCULAR HEMOGLOBIN 26.6 PG (27.0-34.0); MEAN CORPUSCULAR HGB CONC 32.1 % (32.0-36.0); NEUT % 84.5 % (16.0-70.0); PLATELET COUNT 107 TH/MM3 (150-450); RED BLOOD COUNT 2.52 MIL/MM3 (4.00-5.30); RED CELL DISTRIBUTION WIDTH 16.5 % (11.6-17.2); WHITE BLOOD COUNT 10.4 TH/MM3 (4.0-11.0)
[2017-04-19 11:47] LABS: HEMO FLAGS AUTO DIFF
[2017-04-19 12:01] LABS: APTT (PATIENT) 33.4 SEC (24.3-30.1); INTERNATIONAL NORMALIZED RATIO 1.1 RATIO; PROTHROMBIN TIME - PATIENT 12.1 SEC (9.8-11.6)
--- NOTE | 2017-04-19 12:06 | RADRPT ---
EXAM DATE/TIME: 04/19/2017 11:31 [facility] COMPARISON: CHEST SINGLE AP, April 05, 2017, 17:08. US GUIDED THORACENTESIS LEFT, April 05, 2017, 19:01. CHES T SINGLE AP, April 08, 2017, 14:20. INDICATIONS : Short of breath. MEDICAL HISTORY : Chronic obstructive pulmonary disease. SURGICAL HISTORY : None. ENCOUNTER: Initial ACUITY: 1 day PAIN SCORE: 0/10 LOCATION: Bilateral chest FINDINGS: There is complete opacification of the right hemithorax. The left lung is clear. Pulmonary vascular ity is normal. CONCLUSION: Reaccumulation of known left pleural effusion.. Adal Dang MD FACR on April 19, 2017 at 12:03 Board Certified Radiologist. This report was verified electronically.
[2017-04-19 12:09] LABS: ALT (GPT) 18 U/L (10-53); ANION GAP 8 MEQ/L (5-15); AST (GOT) 17 U/L (15-37); BICARBONATE 29.1 MEQ/L (21.0-32.0); BLOOD UREA NITROGEN 37 MG/DL (7-18); CHLORIDE 92 MEQ/L (98-107); GLOMERULAR FILTRATION RATE 78 ML/MIN (>89); POTASSIUM 3.6 MEQ/L (3.5-5.1); SODIUM (NA) 129 MEQ/L (136-145)
[2017-04-19 12:11] LABS: ALKALINE PHOSPHATASE 86 U/L (45-117); TOTAL BILIRUBIN ADULT 0.6 MG/DL (0.2-1.0)
[2017-04-19 12:40] LABS: PLATELET ESTIMATE SMEAR LOW (NORMAL); PLATELET MORPHOLOGY ENLARGED (NORMAL); SCAN/DIFF AUTO DIFF CONFIRMED
[2017-04-19] MEDS ORDERED: LORazepam 2 MG/ML VIAL IV PUSH ONE (12:45)
--- NOTE | 2017-04-19 13:08 | HHI.HP ---
[facility] Unknown Admission Diagnosis Diagnoses: Chief Complaint: Anemia, fatigue, shortness of breath. Travel History International Travel<30 Days: No Contact w/Intl Traveler <30 Da: No Traveled to Known Affected Are: No Sepsis Criteria SIRS Criteria (2 or more): Heart rate over 90, RR > 20 or PaCO2 < 32 Sepsis Criteria (SIRS+source): Infect source susp/known History of Present Illness Ms. Peterson is a pleasant 71 year old female who was diagnosed with metastatic NSCLC as well as upper ext DVT during last admission (04/05/2017 - 04/16/2017). She has been experiencing dyspnea and fatigue. She recently had some blood work done and today she was told to come to the ED due to hemoglobin below 7.0. CXR today showed left sided pleural effusion and subsequently patient underwent US guided thoracentesis by IR. Upon presentation in the ED, patient's HR 125, RR 32 , Blood pressure 133/66, Pulse Ox 100%. Hgb 6.7, WBC 10.4, PLT 107K. CMP was significant for hyponatremia (129) as well as hypoalbuminemia (1.3). I saw patient after she had thoracentesis. She did not have any chest pain, cough, fever, chills. Denies any headache, vision changes, no changes in bowel or bladder habits. Later in the afternoon, nursing staff noted O2 sat around 84% and hypotension. Amauri was called. I went to see patient. She was actually more alert and conversant than my earlier visit. We repeated a CXR. Patient was receiving first unit of PRBCs. Review of Systems Except as stated in HPI: all other systems reviewed are Neg Past Family Social History Past Medical History Recently diagnosed lung cancer. Past Surgical History No significant surgical history. Patient underwent excisional biopsy of the mass on her back during previous admission. Allergies: Coded Allergies: No Known Allergies (Unverified , 04/19/17) Active Ordered Medications DuoNeb Lovenox 60 mg every 12 hours Metoprolol tartrate 25 mg every 12 hours [place] 12/12/24 every 4 hours Lasix 40 mg twice a day Omeprazole Prednisone 10 mg twice a day Calcium carbonate 500 mg every 12 hours. Family History No h/o DM or CAD Social History Negative for alcohol or drugs. History of Tobacco Abuse, quit 6 years ago. Physical Exam Vital Signs Vital Signs Date Time Temp Pulse Resp B/P (MAP) Pulse Ox O2 Delivery O2 Flow Rate FiO2 04/19/17 11:24 100 Nasal Cannula 3.00 04/19/17 11:07 97.7 125 32 133/66 (88) 100 Physical Exam GENERAL: Alert, Oriented x 3. SKIN: No rashes, ecchymoses or lesions. Warm and dry. HEAD: Atraumatic. Normocephalic. No temporal or scalp tenderness. EYES: Pupils equal round and reactive. No injection or drainage. ENT: Nose without bleeding, purulent drainage or septal hematoma. Airway patent. NECK: Trachea midline. No lymphadenopathy. Supple, nontender, no meningeal signs. CARDIOVASCULAR: Regular rate and rhythm without murmurs, gallops, or rubs. No JVD. RESPIRATORY: Moderate air entry, diminished breath sound on the left. No appreciable wheezing. GASTROINTESTINAL: Abdomen soft, non-tender, nondistended. No guarding. MUSCULOSKELETAL: Extremities without clubbing, cyanosis. 2+ edema in lower ext. NEUROLOGICAL: Awake and alert. Cranial nerves II through XII intact. No focal neurological deficits. Normal speech. Laboratory Laboratory Tests Test 04/19/17 11:30 White Blood Count 10.4 Red Blood Count 2.52 Hemoglobin 6.7 Hematocrit 21.0 Mean Corpuscular Volume 83.0 Mean Corpuscular Hemoglobin 26.6 Mean Corpuscular Hemoglobin Concent 32.1 Red Cell Distribution Width 16.5 Platelet Count 107 Mean Platelet Volume 8.9 Neutrophils (%) (Auto) 84.5 Lymphocytes (%) (Auto) 9.5 Monocytes (%) (Auto) 5.0 Eosinophils (%) (Auto) 0.7 Basophils (%) (Auto) 0.3 Neutrophils # (Auto) 8.8 Lymphocytes # (Auto) 1.0 Monocytes # (Auto) 0.5 Eosinophils # (Auto) 0.1 Basophils # (Auto) 0.0 CBC Comment AUTO DIFF Differential Comment AUTO DIFF CONFIRMED Platelet Estimate LOW Platelet Morphology Comment ENLARGED Prothrombin Time 12.1 Prothromb Time International Ratio 1.1 Activated Partial Thromboplast Time 33.4 Blood Urea Nitrogen 37 Creatinine 0.74 Random Glucose 134 Total Protein 5.3 Albumin 1.3 Calcium Level 7.6 Alkaline Phosphatase 86 Aspartate Amino Transf (AST/SGOT) 17 Alanine Aminotransferase (ALT/SGPT) 18 Total Bilirubin 0.6 Sodium Level 129 Potassium Level 3.6 Chloride Level 92 Carbon Dioxide Level 29.1 Anion Gap 8 Estimat Glomerular Filtration Rate 78 Result Diagram: 04/19/17 1130 04/19/17 1130 Imaging Last Impressions Chest X-Ray 04/19/17 1118 Signed Impressions: Service Date/Time: Wednesday, April 19, 2017 11:31 - CONCLUSION: Reaccumulation of known left pleural effusion.. Adal Dang MD FACR Thoracentesis Ultrasound 04/19/17 0000 Signed Impressions: Service Date/Time: Wednesday, April 19, 2017 13:48 - CONCLUSION: Uncomplicated ultrasound guided thoracentesis. Adal Dang MD FACR Caprini VTE Risk Assessment Caprini VTE Risk Assessment: Mod/High Risk (score >= 2) Caprini Risk Assessment Model Point Value = 1 Point Value = 2 Point Value = 3 Point Value = 5 Age 41-60 Minor surgery BMI > 25 kg/m2 Swollen legs Varicose veins or History of unexplained or recurrent spontaneous Oral contraceptives or hormone replacement Sepsis (< 1 month) Serious lung disease, including pneumonia (< 1 month) Abnormal pulmonary function Acute myocardial infarction Congestive heart failure (< 1 month) History of inflammatory bowel disease Medical patient at bed rest Age 61-74 Arthroscopic surgery Major open surgery (> 45 min) Laparoscopic surgery (> 45 min) Malignancy Confined to bed (> 72 hours) Immobilizing plaster cast Central venous access Age >= 75 History of VTE Family history of VTE Factor V Leiden Prothrombin [id number] Lupus anticoagulant Anticardiolipin antibodies Elevated serum homocysteine Heparin-induced thrombocytopenia Other congenital or acquired thrombophilia Stroke (< 1 month) Elective arthroplasty Hip, pelvis, or leg fracture Acute spinal cord injury (< 1 month) Prophylaxis Regimen Total Risk Factor Score Risk Level Prophylaxis Regimen 0-1 Low Early ambulation 2 Moderate Order ONE of the following: *Sequential Compression Device (SCD) *Heparin 5000 units SQ BID 3-4 Higher Order ONE of the following medications: *Heparin 5000 units SQ TID *Enoxaparin/Lovenox 40 mg SQ daily (WT < 150 kg, CrCl > 30 mL/min) *Enoxaparin/Lovenox 30 mg SQ daily (WT < 150 kg, CrCl > 10-29 mL/min) *Enoxaparin/Lovenox 30 mg SQ BID (WT < 150 kg, CrCl > 30 mL/min) AND/OR *Sequential Compression Device (SCD) 5 or more Highest Order ONE of the following medications: *Heparin 5000 units SQ TID (Preferred with Epidurals) *Enoxaparin/Lovenox 40 mg SQ daily (WT < 150 kg, CrCl > 30 mL/min) *Enoxaparin/Lovenox 30 mg SQ daily (WT < 150 kg, CrCl > 10-29 mL/min) *Enoxaparin/Lovenox 30 mg SQ BID (WT < 150 kg, CrCl > 30 mL/min) AND *Sequential Compression Device (SCD) Assessment and Plan Problem List: (1) Acute respiratory failure with hypoxia ICD Code: J96.01 - Acute respiratory failure with hypoxia (2) Sepsis ICD Code: A41.9 - Sepsis, unspecified organism (3) Pleural effusion on left ICD Code: J90 - Pleural effusion, not elsewhere classified (4) Hypotension ICD Code: I95.9 - Hypotension, unspecified (5) Non-small cell lung cancer (NSCLC) ICD Code: C34.90 - Malignant neoplasm of unspecified part of unspecified bronchus or lung (6) Symptomatic anemia ICD Code: D64.9 - Anemia, unspecified Status: Acute (7) Hyponatremia ICD Code: E87.1 - Hypo-osmolality and hyponatremia Status: Acute (8) DVT of axillary vein, acute ICD Code: I82.A19 - Acute embolism and thrombosis of unspecified axillary vein Assessment and Plan Ms. Peterson is a pleasant 71 year old female with a history of recently diagnosed metastatic NSCLC, upper ext DVT who presented to the ED due to anemia , shortness of breath, fatigue. ED workup indicated Hgb 6.7 and left sided pleural effusion for which patient underwent left sided thoracentesis today. - Acute respiratory failure with hypoxia - Sepsis - possibly related to post-obstructive pneumonia - Left sided pleural effusion - Continue supplemental O2 via NC. Currently, patient is on 3-4 L and O2 sat > 90%. - Consider BiPAP if O2 sat > 88% cannot be maintained with nasal cannula. - DuoNeb PRN - Multiple CXR from today reviewed by me. There is a very slight improvement of the left lung after thoracentesis. - Left lung appears almost completely opaque. - We obtained CT chest STAT (images reviewed by me) which showed large mass, adenopathy, compression of bronchi. - Possible post-obstructive pneumonia. - We will obtain Lactic acid, prolactin levels. - Empirically, we will start Zosyn 4.5g Q8hrs and we will give one dose of Vancomycin 1500mg. - If infectious etiology remains a large concern, we will continue abx. - Hypotension - blood pressure 85/45 in the afternoon. - Hypoalbuminemia - We stopped blood transfusion and provided 1L of NS and later 2 L of NS boluses. - If BP does not improve, patient may benefit from ICU admission with need for Levophed. - Will also start Albumin 25% in order to increase intravascular volume. Patient's albumin is 1.3. - Symptomatic anemia - No GI loss suspected. Possible etiology include chemotherapy. - Patient received more than 1 unit of PRBCs but not quite 2. - We will continue to provide NS boluses to achieve MAP BP > 65. - CBC, BMP in the AM. - Metastatic NSCLC - Hyponatremia - Will consult oncology. - Patient may benefit from palliative radiation to her chest. - Hyponatremia is likely due to lung cancer and also possibly due to hypovolemia. - DVT of the upper ext - Given patient's history of Lung cancer, patient will likely need 1mg/kg BID or 1.5mg Qday Lovenox. - Will continue previously started lovenox dose 60mg BID. Patient is DNR. Lovenox for anti-coagulation. I have spent more than 60 minutes to address critical care needs including acute respiratory failure, hypotension, possible sepsis, pneumonia. I have also discussed with nursing staff and several providers. I have also talked to the patient at length. She feels comfortable in her decision to remain in DNR status. Physician Certification 2 Midnight Certification Type: Admission for Inpatient Services Order for Inpatient Services The services are ordered in accordance with Medicare regulations or non- Medicare payer requirements, as applicable. In the case of services not specified as inpatient-only, they are appropriately provided as inpatient services in accordance with the 2-midnight benchmark. Estimated LOS (days): 3 days is the estimated time the patient will need to remain in the hospital, assuming treatment plan goals are met and no additional complications. Post-Hospital Plan: Not yet determined Corie Malone DO Apr 19, 2017 13:08
[2017-04-19] MEDS ORDERED: MAGNESIUM HYDROXIDE SUSP 30 ML CUP PO PRN (13:15)
[2017-04-19] MEDS ORDERED: SENNOSIDES 8.6 MG TAB PO PRN (13:15)
[2017-04-19] MEDS ORDERED: SODIUM CHLORIDE 0.9% FLUSH 10 ML FLUSH IV FLUSH PRN (13:15)
[2017-04-19] MEDS ORDERED: LACTULOSE SYRUP 20 GM/30 ML CUP PO PRN (13:15)
[2017-04-19] MEDS ORDERED: BISACODYL 10 MG SUPP RECTAL PRN (13:15)
[2017-04-19] MEDS ORDERED: ONDANSETRON HCL 4 MG/2 ML VIAL IVP PRN (13:15)
[2017-04-19] MEDS ORDERED: NALOXONE HCL 0.4 MG/ML AMP IV PRN (13:15)
[2017-04-19] MEDS ORDERED: FUROSEMIDE 20 MG/2 ML VIAL IV ONE (14:00)
[2017-04-19] MEDS ORDERED: SODIUM CHLOR 0.9% 250 ML INJ 250 ML IV ONE (14:00)
[2017-04-19] MEDS ORDERED: FUROSEMIDE 40 MG/4 ML VIAL IV PUSH ONE (14:00)
[2017-04-19] MEDS ORDERED: ACETAMINOPHEN 325 MG TAB PO PRN (14:00)
[2017-04-19 14:26] LABS: TRANSFERRIN IRON PROFILE 106 MG/DL (200-360)
[2017-04-19 14:41] LABS: FERRITIN 3152 NG/ML (8-252)
--- NOTE | 2017-04-19 14:52 | RADRPT ---
EXAM DATE/TIME: 04/19/2017 14:32 [facility] COMPARISON: CHEST EXPIRATION ONLY, April 05, 2017, 19:50. INDICATIONS : Post stat thoracentesis. MEDICAL HISTORY : lung mass. SURGICAL HISTORY : None. ENCOUNTER: Initial ACUITY: 1 day PAIN SCORE: 0/10 LOCATION: Left chest FINDINGS: There is significant consolidative changes remaining in all the left with air bronchograms present. There is only minimal improvement following thoracentesis. There is no pneumothorax. CONCLUSION: Negative for pneumothorax following thoracentesis. Minimal improvement. Adal Dang MD FACR on April 19, 2017 at 14:48 Board Certified Radiologist. This report was verified electronically.
--- NOTE | 2017-04-19 15:05 | RADRPT ---
EXAM DATE/TIME: 04/19/2017 13:48 [facility] COMPARISON: US GUIDED THORACENTESIS LEFT, April 05, 2017, 19:01. INDICATIONS : Left pleural effusion. MEDICAL HISTORY : Cirrhosis. Bleeding ulcer. Pleural effusion. Cancer, lung. SURGICAL HISTORY : Left wrist surgery. Thoracentesis. Blood transfusions. ENCOUNTER: Subsequent ACUITY: 2 weeks PAIN SCORE: 0/10 LOCATION: Left chest FLUID: Total volume of 900 cc of cloudy, red fluid was removed. Fluid was discarded. Thoracentesis was therapeutic only. TECHNIQUE: 1. Ultrasound guidance for thoracentesis. 2. Thoracentesis. The risks, benefits, and alternatives to ultrasound guided thoracentesis were explained to the patien t in lay simple terms, including the risk of bleeding and infection. Written and verbal informed con sent was obtained. Appropriate area for thoracentesis was marked under ultrasound guidance with the patient in the uprig ht position. Overlying skin was prepped and draped in the usual sterile fashion and with local anest hetic, a dermatotomy was made with an 11 blade scalpel. A 6 Greek thoracentesis catheter was placed in the pleural space and fluid was removed. Catheter was then removed and a sterile dressing applie d. There were no immediate complications. The patient tolerated the procedure well and the left the ultrasound suite in stable condition. Chest radiograph is to be obtained. CONCLUSION: Uncomplicated ultrasound guided thoracentesis. Adal Dang MD FACR on April 19, 2017 at 15:03 Board Certified Radiologist. This report was verified electronically.
[2017-04-19] MEDS: diphenhydrAMINE HCL 25 MG CAP PO PRN ×2 (16:10→20:13)
[2017-04-19] MEDS: ACETAMINOPHEN 325 MG TAB PO PRN ×2 (16:10→20:14)
--- NOTE | 2017-04-19 17:46 | HHI.PR ---
Addendum to Inpatient Note Addendum Reason: Additional Documentation Additional Information S: Team paged at approximately 1700 for ZARA. Nursing staff for hypotension. Per nursing report patient was admitted this afternoon and taken for left thoracentesis for a left hemothorax. Upon arriving to the floor patient's blood pressure was in the 80s over 50s. Upon arrival patient states that she was transferred from her longterm after her outpatient labs were concerning for anemia. She currently has no complaints and states that she "feels completely fine." She denied a complete review of systems upon interview. O: Vitals: 97.1, 112 bpm, 84/56, respiratory rate of 20, 91% on room air GENERAL: Elderly female lying in bed in no acute distress. SKIN: Warm and dry. No rash. HEENT: Atraumatic, normocephalic with EOMI. Mucous membrane is dry. Patient with a large left-sided neck mass consistent with the size of a tennis ball with discoloration of the skin. CARDIOVASCULAR: Tachycardic with regular rhythm. No MGR appreciated. RESPIRATORY: No breath sounds throughout the left lung. Right lung with diminished air sounds throughout. No increased work of breathing. Dullness to percussion over the entire left lung. Thoracentesis bandage on left back at the midline. Bandage is clean, dry, and intact. GASTROINTESTINAL: Abdomen soft, non-tender, nondistended with positive bowel sounds. No masses appreciated. MUSCULOSKELETAL: No cyanosis. 3+ edema in the bilateral lower extremities. 2+ pulses appreciated radially. Lower extremity pulses not appreciated due to extensive edema. BACK: Nontender without obvious deformity. No CVA tenderness. Thoracentesis bandage as above. NEURO/PSYCH: Awake, alert, and oriented x3. Patient with mild slurring of speech with left-sided facial droop, baseline per staff. Otherwise afocal. Normal speech and judgment. Normal interaction with medical staff. A/P: Mrs. Peterson is a 71-year-old female with history concerning for metastatic disease admitted for left sided hemopneumothorax s/p stent thoracentesis presenting with asymptomatic hypotension. 1. Asymptomatic hypotension -Establish with patient her CODE STATUS is DO NOT RESUSCITATE at this time. Multiple medical staff witnessed, order placed. -Stat chest x-ray ordered at his physical exam is concerning for possible continued any thorax versus new pneumothorax. -Increased rate of red blood cell transfusion to 250 per hour. -Medical team to avoid aggressive hydration due to possible history of congestive heart failure per exam and medicine reconciliation. -Defer transfer to IMC as patient is DNR and we will forego lifesaving measures at this time. -Nursing staff to contact admitting provider with low threshold to contact interventional radiology based on chest x-ray findings. Update: Dr. Malone, primary physician, at bedside to evaluated patient. He agrees at this time for stat CXR without IMC transfer and will resume further care. Keegan Dominguez MD R2 Apr 19, 2017 17:46
[2017-04-19] MEDS ORDERED: SODIUM CHLORID 0.9% 500 ML INJ 500 ML IV PRN (18:00)
[2017-04-19] MEDS ORDERED: SODIUM CHLOR 0.9% 1000 ML INJ 1,000 ML IV ONE ×2 (18:15→23:00)
--- NOTE | 2017-04-19 18:16 | RADRPT ---
EXAM DATE/TIME: 04/19/2017 17:50 [facility] COMPARISON: CHEST EXPIRATION ONLY, April 19, 2017, 14:32. CHEST SINGLE AP, April 19, 2017, 11:31. US IDED THORACENTESIS LEFT, April 19, 2017, 13:48. INDICATIONS : Shortness of breath. Hal[place]. MEDICAL HISTORY : Carcinoma, lung. SURGICAL HISTORY : None. ENCOUNTER: Initial ACUITY: 1 day PAIN SCORE: 0/10 LOCATION: Bilateral chest FINDINGS: Opacification of the left hemithorax remains large left effusion and lung consolidation. Right lung r emains relatively clear without significant effusion. No right pneumothorax. Right-sided [id number] t present. CONCLUSION: 1. Stable opaque left hemithorax secondary to effusion and lung consolidation. Dallas Mckinney MD on April 19, 2017 at 18:12 Board Certified Radiologist. This report was verified electronically.
--- NOTE | 2017-04-19 19:18 | RADRPT ---
EXAM DATE/TIME: 04/19/2017 18:57 [facility] COMPARISON: No previous studies available for comparison. INDICATIONS : Evaluate pleural effusion. RADIATION DOSE: 8.55 CTDIvol (mGy) MEDICAL HISTORY : Cirrhosis. Metastatic, lung. SURGICAL HISTORY : None. ENCOUNTER: Initial ACUITY: 1 day PAIN SCALE: 0/10 LOCATION: Left chest TECHNIQUE: Volumetric scanning of the chest was performed. Using automated exposure control and adjustment of t he mA and/or kV according to patient size, radiation dose was kept as low as reasonably achievable to obtain optimal diagnostic quality images. DICOM format image data is available electronically for r eview and comparison. Follow-up recommendations for detected pulmonary nodules are based at a minimum on nodule size and pa tient risk factors according to Fleischner Society Guidelines. FINDINGS: There is complete opacification of the left hemithorax. The lower portion is predominantly due to a l arge lung mass and consolidation and a moderate-sized residual pleural fluid collection present. Ther e is no significant mediastinal shift. There is bulky subcarinal adenopathy measuring up to 4.1 x 2.8 cm this is increased slightly from April 05. There is also a small new right sided pleural effusion. Left lower lobe bronchus obstructed. At least partial obstruction distal left upper lobe bronchus. No acute findings in the upper abdomen. CONCLUSION: 1. Opaque left hemithorax. The majority is related to a large left lung mass and adjacent consolidati on with loculated pleural fluid present superiorly and inferiorly. There is bulky subcarinal adenopat hy. There is obstruction of the left lower lobe bronchus and at least partial obstruction of the left upper lobe bronchus. Small right effusion also present. 2. [id number] in superior vena cava. Dallas Mckinney MD on April 19, 2017 at 19:12 Board Certified Radiologist. This report was verified electronically.
[2017-04-19] MEDS: DOCUSATE SODIUM 50 MG/SENNA 8.6 MG TAB PO SCH (20:59)
[2017-04-19] MEDS: SODIUM CHLORIDE 0.9% FLUSH 10 ML FLUSH IV FLUSH SCH (21:00)
--- NOTE | 2017-04-19 23:04 | HHI.PR ---
Addendum to Inpatient Note Addendum Reason: Additional Documentation Additional Information S: Medical team paged at approximately 2230 for ZARA. Per nursing staff ZARA called for asymptomatic hypotension to 80s over 50s. Interval history since earlier LYNNETTET: Patient was administered first unit of PRBC and then given 1 L normal saline bolus. Patient was unable to receive Lasix between PRBC units due to hypotension. Chest x-ray was significant for left hemithorax secondary to effusion and lung consolidation. At that time primary team ordered a chest CT concerning for left hemithorax related to large left lung mass and adjacent consolidation with loculated pleural fluid. Obstructions or identified at the left lower lobe bronchus and partially of the left upper lobe bronchus. Upon arrival to the room patient states that she has no complaints with a negative review of systems. She states that she was sleeping comfortably until ZARA was called. O: Vitals: 96.9, 105 bpm, 90/46, respiratory rate of 19, 100% on room air GENERAL: Elderly female lying in bed in no acute distress. SKIN: Warm and dry. No rash. HEENT: Atraumatic, normocephalic with EOMI. Mucous membrane is dry. Patient with a large left-sided neck mass consistent with the size of a tennis ball with discoloration of the skin. CARDIOVASCULAR: Tachycardic with regular rhythm. No MGR appreciated. RESPIRATORY: No breath sounds throughout the left lung. Right lung with diminished air sounds throughout. No increased work of breathing. Dullness to percussion over the entire left lung. Thoracentesis bandage on left back at the midline. Bandage is clean, dry, and intact. GASTROINTESTINAL: Abdomen soft, non-tender, nondistended with positive bowel sounds. No masses appreciated. MUSCULOSKELETAL: No cyanosis. 3+ edema in the bilateral lower extremities. 2+ pulses appreciated radially with 2+ edema of the bicipital area. Lower extremity pulses not appreciated due to extensive edema. BACK: Nontender without obvious deformity. No CVA tenderness. Thoracentesis bandage as above. NEURO/PSYCH: Awake, alert, and oriented x3. Patient with mild slurring of speech with left-sided facial droop, baseline per staff. Otherwise afocal. Normal speech and judgment. Normal interaction with medical staff. A/P: Mrs. Peterson is a 71-year-old female with history concerning for metastatic disease admitted for left sided hemopneumothorax s/p stent thoracentesis presenting with asymptomatic hypotension. 1. Asymptomatic hypotension -Discussed case with [employer], Mrs. Jaja Avendaño, over the phone who will resume care at this time; she states she will discuss case with Dr. Malone, primary physician, and Dr. Glez, mobile home mechanic, for further recommendations -Physical exam unchanged from prior evaluation -BPs are likely not completely accurate due to the extensive edema and necessity to use her LE for BP checks, however patient is critical given her progressive malignancy with current physical exam Keegan Dominguez MD R2 Apr 19, 2017 23:04
[2017-04-19] MEDS: ALBUMIN HUMAN 25% 25 GM/100 ML BAGP IV SCH (23:51)
[2017-04-20] VITALS (10 sets, daily range): BP systolic 97–115; BP diastolic 49–66; PULSE 112–125; RESP 20–28; TEMP 97–98.4; O2SAT 95–99
[2017-04-20] MEDS ORDERED: PIPERACIL-TAZO 4.5 GM PREMIX 100 ML IV SCH
[2017-04-20] MEDS ORDERED: SODIUM CHLOR 0.9% 1000 ML INJ 1,000 ML IV PRN
[2017-04-20] MEDS ORDERED: VANCOMYCIN INJ 1,500 MG in SODIUM CHLORID 0.9% 500 ML INJ 500 ML IV ONE ×2
[2017-04-20] MEDS: ENOXAPARIN SODIUM 60 MG/0.6 ML SYRINGE SQ SCH ×3 (01:04→23:43)
[2017-04-20] MEDS: RESP: ALBUTEROL 2.5 MG/IPRATROPIUM 0.5 MG NEB (PRN) NEB ×3 (02:24→18:21)
[2017-04-20] MEDS: PIPERACIL-TAZO 4.5 GM PREMIX 100 ML IV SCH ×3 (04:00→19:47)
[2017-04-20 06:13] LABS: AUTOMATED NEUTROPHIL # 5.4 TH/MM3 (1.8-7.7); BASOPHIL % 0.7 % (0.0-2.0); EOSINOPHIL # 0.1 TH/MM3 (0-0.4); EOSINOPHIL % 1.9 % (0.0-4.0); HEMATOCRIT 21.6 % (35.0-46.0); LYMPH % 7.9 % (9.0-44.0); LYMPHOCYTE # 0.5 TH/MM3 (1.0-4.8); MEAN CELL VOLUME 83.1 FL (80.0-100.0); MEAN CORPUSCULAR HEMOGLOBIN 27.9 PG (27.0-34.0); MEAN CORPUSCULAR HGB CONC 33.6 % (32.0-36.0); MONO % 9.3 % (0.0-8.0); NEUT % 80.2 % (16.0-70.0); PLATELET COUNT 96 TH/MM3 (150-450); RED CELL DISTRIBUTION WIDTH 15.8 % (11.6-17.2); WHITE BLOOD COUNT 6.7 TH/MM3 (4.0-11.0)
[2017-04-20 06:19] LABS: HEMO FLAGS AUTO DIFF
[2017-04-20 06:54] LABS: BICARBONATE 30.3 MEQ/L (21.0-32.0); POTASSIUM 3.2 MEQ/L (3.5-5.1)
[2017-04-20 07:33] LABS: CALCIUM-PROTEIN CORRECTED 8.3 MG/DL (8.5-10.1)
[2017-04-20 08:54] LABS: PLATELET ESTIMATE SMEAR LOW (NORMAL); PLATELET MORPHOLOGY NORMAL (NORMAL); SCAN/DIFF AUTO DIFF CONFIRMED
--- NOTE | 2017-04-20 09:23 | HHI.PR ---
Subjective Remarks Follow-up for respiratory failure, pleural effusion, hypotension, metastatic non -small cell lung cancer. Patient is currently doing better. Denies any chest pain, shortness of breath, fever or chills. She is on 4 L of oxygen via nasal cannula. Patient's father is at bedside. Objective Vitals Vital Signs Date Time Temp Pulse Resp B/P (MAP) Pulse Ox O2 Delivery O2 Flow Rate FiO2 04/20/17 08:24 96 Nasal Cannula 4.00 04/20/17 05:06 97.8 120 26 98/49 (65) 98 04/20/17 03:51 116 26 98/54 (69) 95 04/20/17 02:25 97 Nasal Cannula 4.00 04/20/17 02:09 97.0 120 28 109/55 (73) 96 04/20/17 00:34 112 22 97/52 (67) 97 04/19/17 23:31 106 22 96/47 (63) 96 04/19/17 23:15 107 86/50 (62) 04/19/17 23:15 22 98/50 (66) 100 04/19/17 23:07 96.6 103 22 90/51 98 04/19/17 23:05 104 22 89/51 (64) 04/19/17 22:50 105 22 79/43 (55) 96 04/19/17 22:45 110 22 90/42 (58) 95 04/19/17 22:35 106 82/47 (59) 100 04/19/17 22:21 97.4 106 22 80/44 (56) 95 04/19/17 22:16 95 4.00 04/19/17 22:00 108 22 84/44 (57) 95 04/19/17 20:17 96.8 108 22 87/49 95 04/19/17 17:00 96.8 118 20 78/41 (53) 90 84/52 (63) 04/19/17 16:32 96.8 123 20 97/50 90 04/19/17 15:30 96.8 124 20 97/50 (66) 92 04/19/17 15:15 98.8 104 20 115/54 (74) 95 04/19/17 15:00 98.8 111 18 127/59 (81) 96 04/19/17 11:24 100 Nasal Cannula 3.00 04/19/17 11:07 97.7 125 32 133/66 (88) 100 I/O 04/19/17 04/19/17 04/19/17 04/20/17 04/20/17 04/20/17 07:00 15:00 23:00 07:00 15:00 23:00 Intake Total 250 ml 255 ml Balance 250 ml 255 ml Packed Cells 250 ml 250 ml Blood Product IV Normal Saline Flush 5 ml Result Diagram: 04/20/17 0515 04/20/17 0515 Imaging Last Impressions Chest X-Ray 04/19/17 1118 Signed Impressions: Service Date/Time: Wednesday, April 19, 2017 11:31 - CONCLUSION: Reaccumulation of known left pleural effusion.. Adal Dang MD FACR Thoracentesis Ultrasound 04/19/17 0000 Signed Impressions: Service Date/Time: Wednesday, April 19, 2017 13:48 - CONCLUSION: Uncomplicated ultrasound guided thoracentesis. Adal Dang MD FACR Chest CT 04/19/17 0000 Signed Impressions: Service Date/Time: Wednesday, April 19, 2017 18:57 - CONCLUSION: 1. Opaque left hemithorax. The majority is related to a large left lung mass and adjacent consolidation with loculated pleural fluid present superiorly and inferiorly. There is bulky subcarinal adenopathy. There is obstruction of the left lower lobe bronchus and at least partial obstruction of the left upper lobe bronchus. Small right effusion also present. 2. [id number] in superior vena cava. Dallas Mckinney MD Objective Remarks GENERAL: AOX3, NAD. SKIN: Warm and dry. HEAD: Normocephalic. EYES: No scleral icterus. No injection or drainage. NECK: Supple, trachea midline. No JVD or lymphadenopathy. CARDIOVASCULAR: Regular rate and rhythm without murmurs, gallops, or rubs. RESPIRATORY: Right lung moderate air entry. Left lung severely diminished lung sound. GASTROINTESTINAL: Abdomen soft, non-tender, nondistended. MUSCULOSKELETAL: No cyanosis. Diffuse anasarca . Lower ext edema 2+. BACK: Nontender without obvious deformity. No CVA tenderness. Procedures Thoracentesis 04/19/2017. Echo 04/20/2017 The left ventricular systolic function is hyperdynamic with an estimated ejection fraction in the range of 65- 70%. Normal left ventricular size. Mild concentric left ventricular hypertrophy. No regional wall motion abnormalities are present. A large left sided pleural effusion is noted. A/P Problem List: (1) Acute respiratory failure with hypoxia ICD Code: J96.01 - Acute respiratory failure with hypoxia (2) Sepsis ICD Code: A41.9 - Sepsis, unspecified organism (3) Pleural effusion on left ICD Code: J90 - Pleural effusion, not elsewhere classified (4) Hypotension ICD Code: I95.9 - Hypotension, unspecified (5) Non-small cell lung cancer (NSCLC) ICD Code: C34.90 - Malignant neoplasm of unspecified part of unspecified bronchus or lung (6) Symptomatic anemia ICD Code: D64.9 - Anemia, unspecified Status: Acute (7) Hyponatremia ICD Code: E87.1 - Hypo-osmolality and hyponatremia Status: Acute (8) DVT of axillary vein, acute ICD Code: I82.A19 - Acute embolism and thrombosis of unspecified axillary vein Assessment and Plan Ms. Peterson is a pleasant 71 year old female with a history of recently diagnosed metastatic NSCLC, upper ext DVT who presented to the ED due to anemia , shortness of breath, fatigue. ED workup indicated Hgb 6.7 and left sided pleural effusion for which patient underwent left sided thoracentesis today. - Acute respiratory failure with hypoxia - Sepsis - possibly related to post-obstructive pneumonia - Left sided pleural effusion - Continue supplemental O2 via NC. Currently, patient is on 4 L. - Titrate O2 down to keep O2 sat > 88%. - DuoNeb PRN - There is a very slight improvement of the left lung after thoracentesis. - Left lung appears almost completely opaque. - We obtained CT chest which showed large mass, adenopathy, compression of bronchi. - Possible post-obstructive pneumonia. - Lactic acid 1.2. Procalcitonin level pending. - Will continue Zosyn for now. May switch to PO Levaquin tomorrow. - Hypotension - BP improved to 99/55 (70). - Hypoalbuminemia - Will continue Albumin infusion for 2 days. - Continue NS @100cc/hour. - Hypotension may have been related to blood transfusion related reaction. - Symptomatic anemia - No GI loss suspected. Possible etiology include chemotherapy. - Patient received more than 1 unit of PRBCs but not quite 2. - Hgb improved 6.7 --> 7.3. - Metastatic NSCLC - Hyponatremia - oncology consult pending. - Patient may benefit from palliative radiation to her chest. - Hyponatremia improved 129 --> 134. - DVT of the upper ext - Given patient's history of Lung cancer, patient will likely need 1mg/kg BID or 1.5mg Qday Lovenox. - Will continue previously started lovenox dose 60mg BID. Patient is DNR. Lovenox for anti-coagulation. Corie Malone DO Apr 20, 2017 09:22
[2017-04-20] MEDS: DOCUSATE SODIUM 50 MG/SENNA 8.6 MG TAB PO SCH ×2 (09:51→21:00)
[2017-04-20] MEDS: ALBUMIN HUMAN 25% 25 GM/100 ML BAGP IV SCH ×2 (09:52→23:43)
[2017-04-20] MEDS: SODIUM CHLORIDE 0.9% FLUSH 10 ML FLUSH IV FLUSH SCH ×2 (09:58→21:00)
--- NOTE | 2017-04-20 12:06 | ECHRPT ---
Indication: ef assessment of chf CONCLUSIONS The left ventricular systolic function is hyperdynamic with an estimated ejection fraction in the ra nge of 65- 70%. Normal left ventricular size. Mild concentric left ventricular hypertrophy. No regional wall motion abnormalities are present. A large left sided pleural effusion is noted. BP: 98 / 49 HR: 65 Rhythm: Sinus MEASUREMENTS (Male / Female) Normal Values Technical Quality:Poor 2D ECHO LV Diastolic Diameter PLAX 3.7 cm 4.2 - 5.9 / 3.9 - 5.3 cm LV Systolic Diameter PLAX 2.4 cm IVS Diastolic Thickness 1.3 cm 0.6 - 1.0 / 0.6 - 0.9 cm LVPW Diastolic Thickness 1.3 cm 0.6 - 1.0 / 0.6 - 0.9 cm LV Relative Wall Thickness 0.7 LV Ejection Fraction MOD 4C 66.7 % LV Cardiac Index MOD 4C 853.6 cm/minm LV Ejection Fraction 4C AL 66.7 % LV Cardiac Index 4C AL 874.5 cm/minm FINDINGS LEFT VENTRICLE The left ventricular systolic function is hyperdynamic with an estimated ejection fraction in the ra nge of 65- 70%. Normal left ventricular size. Mild concentric left ventricular hypertrophy. No regional wall motion abnormalities are present. PERICARDIUM A large left sided pleural effusion is noted. Cecil Reynaga MD (Electronically Signed) Final Date:20 April 2017 12:04
[2017-04-20] MEDS: ALPRAZolam 0.25 MG TAB PO PRN (19:47)
[2017-04-20] MEDS: SODIUM CHLOR 0.9% 1000 ML INJ 1,000 ML IV SCH ×2 (19:48→23:44)
[2017-04-21] VITALS (8 sets, daily range): BP systolic 105–132; BP diastolic 56–75; PULSE 115–124; RESP 20–28; TEMP 94–99; O2SAT 96–99
[2017-04-21] MEDS: PIPERACIL-TAZO 4.5 GM PREMIX 100 ML IV SCH ×3 (03:42→21:58)
[2017-04-21] MEDS: ALPRAZolam 0.25 MG TAB PO PRN (03:42)
[2017-04-21] MEDS: DOCUSATE SODIUM 50 MG/SENNA 8.6 MG TAB PO SCH ×2 (08:11→21:00)
[2017-04-21] MEDS: SODIUM CHLORIDE 0.9% FLUSH 10 ML FLUSH IV FLUSH SCH ×2 (09:00→21:59)
--- NOTE | 2017-04-21 09:21 | PD.ONC.PN ---
Subjective Subjective Remarks Afebrile Pt states "If I'm dying I would like to be comfortable, not with so much anxiety like I have now" Reports that she had a bad experience with palliative care, would not like for them to come back. Objective Data Date Time Temp Pulse Resp B/P (MAP) Pulse Ox O2 Delivery O2 Flow Rate FiO2 04/21/17 04:00 97.5 115 20 105/69 (81) 98 04/21/17 00:00 97.1 124 28 132/75 (94) 97 04/20/17 20:00 97.1 124 28 115/66 (82) 96 04/20/17 15:50 97.1 125 20 104/57 (73) 99 04/20/17 11:50 97.1 124 20 99/56 (70) 99 Result Diagram: 04/20/1751404/20/17514 Administered Medications Medications (Trade) Dose Ordered Sig/Jaspal Route PRN Reason Start Time Stop Time Status Last Admin Dose Admin Sodium Chloride 1,000 ml @ 100 mls/hr Q10H IV 04/19/17 13:04 04/20/17 23:44 Sodium Chloride (NS Flush) 2 ml BID IV FLUSH 04/19/17 21:00 04/20/17 09:58 Acetaminophen (Tylenol) 650 mg Q4H PRN PO Headache, fever, pain 1-4 04/19/17 13:15 04/19/17 20:14 Albumin Human (Albumin 25% Inj) 25 gm Q12H IV 04/19/17 23:00 04/21/17 22:59 04/20/17 23:43 Enoxaparin Sodium (Lovenox Inj) 60 mg Q12H SQ 04/20/17 00:00 04/20/17 23:43 Albuterol/ Ipratropium (Duoneb Neb) 1 ampule Q4HR NEB PRN NEB dyspnea 04/20/17 00:00 04/20/17 18:21 Piperacillin Sod/ Tazobactam Sod 100 ml @ 200 mls/hr Q8H IV 04/20/17 04:00 04/21/17 03:42 Alprazolam (Xanax) 0.25 mg Q8H PRN PO ANXIETY 04/20/17 19:15 04/21/17 03:42 Objective Remarks GENERAL: Elderly anxious female sitting up on side of bed. SKIN: Warm and dry. HEAD: Normocephalic. EYES: No injection or drainage. NECK: Supple, trachea midline. Lg mass to L neck. CARDIOVASCULAR: R+S1/S2. Tachycardia. RESPIRATORY: L lung no breath sounds. R lung clear with occasional wheeze. GASTROINTESTINAL: Abdomen soft, non-tender, nondistended. EXTREMITIES: No cyanosis, or edema. NEUROLOGICAL: No obvious focal deficit. Awake, alert, and oriented x3. Assessment/Plan Problem List: (1) Non-small cell lung cancer (NSCLC) ICD Codes: C34.90 - Malignant neoplasm of unspecified part of unspecified bronchus or lung Plan: 04/21: Pt with extreme anxiety over SOB and cancer that does not seem to be responding to 1st dose of chemo. Does not wish to keep living like this. We will consult Hospice for evaluation. Hx/Workup: Pt has rapidly growing mass on neck and back that started approx 3 months ago. Pathology shows NSCLC. She was given chemotherapy with Paclitaxel and Carboplatin. She was discharged to SNF but readmitted with increased SOB. Assessment 71 y/o female with lung cancer admitted with SOB Attending Statement c/o extreme anxiety. Increase xanax. Biomarkers are pending does not want hospice. she wants to speak to Dr Barajas ( her oncologist). He will be here tonight The exam, history, and the medical decision-making described in the above note were completed with the assistance of the mid-level provider. I reviewed and agree with the findings presented. I attest that I had a [id number] encounter with the patient on the same day, and personally performed and documented my assessment and findings in the medical record.. Yuliya Villatoro Apr 21, 2017 09:21 Susanna Moore MD Apr 21, 2017 11:10
[2017-04-21] MEDS ORDERED: ALPRAZolam 0.25 MG TAB PO ONE (09:30)
[2017-04-21] MEDS: RESP: ALBUTEROL 2.5 MG/IPRATROPIUM 0.5 MG NEB (PRN) NEB ×3 (09:34→21:11)
[2017-04-21] MEDS: ALBUMIN HUMAN 25% 25 GM/100 ML BAGP IV SCH (10:21)
[2017-04-21] MEDS: SODIUM CHLOR 0.9% 1000 ML INJ 1,000 ML IV SCH (10:28)
[2017-04-21] MEDS: ENOXAPARIN SODIUM 60 MG/0.6 ML SYRINGE SQ SCH (12:45)
--- NOTE | 2017-04-21 14:00 | HHI.PR ---
Subjective Remarks Follow-up for respiratory failure, pleural effusion, hypotension, metastatic non -small cell lung cancer. Patient complains of some dyspnea. No fever, chills. Currently on 4L of O2 via NC. Objective Vitals Vital Signs Date Time Temp Pulse Resp B/P (MAP) Pulse Ox O2 Delivery O2 Flow Rate FiO2 04/21/17 09:36 97 Nasal Cannula 5.00 04/21/17 07:51 98.2 122 20 108/56 (73) 96 04/21/17 04:00 97.5 115 20 105/69 (81) 98 04/21/17 00:00 97.1 124 28 132/75 (94) 97 04/20/17 20:00 97.1 124 28 115/66 (82) 96 04/20/17 15:50 97.1 125 20 104/57 (73) 99 I/O 04/20/17 04/20/17 04/20/17 04/21/17 04/21/17 04/21/17 06:59 14:59 22:59 06:59 14:59 22:59 Intake Total 255 ml 1037 ml 200 ml Balance 255 ml 1037 ml 200 ml Intake Oral 837 ml IV Total 200 ml 200 ml Packed Cells 250 ml Blood Product IV Normal Saline Flush 5 ml # Voids 3 1 2 # Bowel Movements 4 1 2 Result Diagram: 04/20/17 0515 04/20/17 0515 Imaging Last Impressions Chest X-Ray 04/19/17 1118 Signed Impressions: Service Date/Time: Wednesday, April 19, 2017 11:31 - CONCLUSION: Reaccumulation of known left pleural effusion.. Adal Dang MD FACR Thoracentesis Ultrasound 04/19/17 0000 Signed Impressions: Service Date/Time: Wednesday, April 19, 2017 13:48 - CONCLUSION: Uncomplicated ultrasound guided thoracentesis. Adal Dang MD FACR Chest CT 04/19/17 0000 Signed Impressions: Service Date/Time: Wednesday, April 19, 2017 18:57 - CONCLUSION: 1. Opaque left hemithorax. The majority is related to a large left lung mass and adjacent consolidation with loculated pleural fluid present superiorly and inferiorly. There is bulky subcarinal adenopathy. There is obstruction of the left lower lobe bronchus and at least partial obstruction of the left upper lobe bronchus. Small right effusion also present. 2. [id number] in superior vena cava. Dallas Mckinney MD Objective Remarks GENERAL: AOX3, NAD. SKIN: Warm and dry. HEAD: Normocephalic. EYES: No scleral icterus. No injection or drainage. NECK: Supple, trachea midline. No JVD or lymphadenopathy. CARDIOVASCULAR: Regular rate and rhythm without murmurs, gallops, or rubs. RESPIRATORY: Right lung moderate air entry. Left lung severely diminished lung sound. GASTROINTESTINAL: Abdomen soft, non-tender, nondistended. MUSCULOSKELETAL: No cyanosis. Diffuse anasarca . Lower ext edema 2+. BACK: Nontender without obvious deformity. No CVA tenderness. Procedures Thoracentesis 04/19/2017. Echo 04/20/2017 The left ventricular systolic function is hyperdynamic with an estimated ejection fraction in the range of 65- 70%. Normal left ventricular size. Mild concentric left ventricular hypertrophy. No regional wall motion abnormalities are present. A large left sided pleural effusion is noted. A/P Problem List: (1) Acute respiratory failure with hypoxia ICD Code: J96.01 - Acute respiratory failure with hypoxia (2) Sepsis ICD Code: A41.9 - Sepsis, unspecified organism (3) Pleural effusion on left ICD Code: J90 - Pleural effusion, not elsewhere classified (4) Hypotension ICD Code: I95.9 - Hypotension, unspecified (5) Non-small cell lung cancer (NSCLC) ICD Code: C34.90 - Malignant neoplasm of unspecified part of unspecified bronchus or lung (6) Symptomatic anemia ICD Code: D64.9 - Anemia, unspecified Status: Acute (7) Hyponatremia ICD Code: E87.1 - Hypo-osmolality and hyponatremia Status: Acute (8) DVT of axillary vein, acute ICD Code: I82.A19 - Acute embolism and thrombosis of unspecified axillary vein Assessment and Plan Ms. Peterson is a pleasant 71 year old female with a history of recently diagnosed metastatic NSCLC, upper ext DVT who presented to the ED due to anemia , shortness of breath, fatigue. ED workup indicated Hgb 6.7 and left sided pleural effusion for which patient underwent left sided thoracentesis today. - Acute respiratory failure with hypoxia - Sepsis - possibly related to post-obstructive pneumonia - Left sided pleural effusion - Continue supplemental O2 via NC. Currently, patient is on 4 L. - Titrate O2 down to keep O2 sat > 88%. - DuoNeb PRN - There is a very slight improvement of the left lung after thoracentesis. - Left lung appears almost completely opaque. - We obtained CT chest which showed large mass, adenopathy, compression of bronchi. - Possible post-obstructive pneumonia. - Lactic acid 1.2. Procalcitonin level pending. - Will continue Zosyn for now. May switch to PO Levaquin tomorrow. - Hypotension - BP improved - systolic around 100. - Hypoalbuminemia - Albumin infusion for 2 days. - D/C NS @100cc/hour. - Hypotension may have been related to blood transfusion related reaction. - Symptomatic anemia - No GI loss suspected. Possible etiology include chemotherapy. - Patient received more than 1 unit of PRBCs but not quite 2. - Hgb improved 6.7 --> 7.3. - Metastatic NSCLC - Hyponatremia - oncology consulted. Dr. Barajas will likely see patient tonight. - Patient may benefit from palliative radiation to her chest. - Hyponatremia improved 129 --> 134. - DVT of the upper ext - Given patient's history of Lung cancer, patient will likely need 1mg/kg BID or 1.5mg Qday Lovenox. - Will continue previously started lovenox dose 60mg BID. Patient is DNR. Lovenox for anti-coagulation. Corie Malone DO Apr 21, 2017 14:00
[2017-04-21 15:52] LABS: C. DIFF EPI 027 PRESUMPTIVE NEGATIVE (NEGATIVE)
[2017-04-21] MEDS: ALPRAZolam 0.5 MG TAB PO PRN (17:29)
[2017-04-22] VITALS (11 sets, daily range): BP systolic 85–151; BP diastolic 42–99; PULSE 114–132; RESP 18–28; TEMP 96.8–99.3; O2SAT 94–100
[2017-04-22] MEDS: ALPRAZolam 0.5 MG TAB PO PRN ×4 (00:19→23:52)
[2017-04-22] MEDS: ENOXAPARIN SODIUM 60 MG/0.6 ML SYRINGE SQ SCH ×3 (00:20→22:54)
[2017-04-22] MEDS: PIPERACIL-TAZO 4.5 GM PREMIX 100 ML IV SCH (04:14)
[2017-04-22] MEDS: RESP: ALBUTEROL 2.5 MG/IPRATROPIUM 0.5 MG NEB (PRN) NEB ×2 (04:32→15:33)
[2017-04-22] MEDS: DOCUSATE SODIUM 50 MG/SENNA 8.6 MG TAB PO SCH ×2 (09:00→21:00)
[2017-04-22] MEDS: SODIUM CHLORIDE 0.9% FLUSH 10 ML FLUSH IV FLUSH SCH ×2 (09:57→21:00)
--- NOTE | 2017-04-22 11:21 | HHI.PR ---
Objective Vitals Vital Signs Date Time Temp Pulse Resp B/P (MAP) Pulse Ox O2 Delivery O2 Flow Rate FiO2 04/22/17 11:05 97 Nasal Cannula 4.00 04/22/17 08:19 96 Nasal Cannula 4.00 04/22/17 07:50 98.1 115 20 97/55 (69) 96 04/22/17 04:00 99.3 120 28 117/62 (80) 95 04/22/17 00:00 97.7 118 24 124/69 (87) 94 04/21/17 21:13 98 Nasal Cannula 4.00 04/21/17 20:00 99.0 120 20 108/58 (75) 99 04/21/17 15:50 94.0 116 20 125/59 (81) 98 04/21/17 11:50 96.5 119 20 106/58 (74) 99 I/O 04/21/17 04/21/17 04/21/17 04/22/17 04/22/17 04/22/17 07:00 15:00 23:00 07:00 15:00 23:00 Intake Total 917 ml 480 ml 240 ml Output Total 300 ml Balance 617 ml 480 ml 240 ml Intake Oral 717 ml 480 ml 240 ml IV Total 200 ml Output Urine Total 300 ml # Voids 1 1 1 # Bowel Movements 1 9 2 Result Diagram: 04/20/1751404/20/1715 Objective Remarks GENERAL: AOX3, NAD. SKIN: Warm and dry. HEAD: Normocephalic. EYES: No scleral icterus. No injection or drainage. NECK: Supple, trachea midline. No JVD or lymphadenopathy. CARDIOVASCULAR: Regular rate and rhythm without murmurs, gallops, or rubs. RESPIRATORY: Right lung moderate air entry. Left lung severely diminished lung sound. GASTROINTESTINAL: Abdomen soft, non-tender, nondistended. MUSCULOSKELETAL: No cyanosis. Diffuse anasarca . Lower ext edema 2+. BACK: Nontender without obvious deformity. No CVA tenderness. Procedures Thoracentesis 04/19/2017. Echo 04/20/2017 The left ventricular systolic function is hyperdynamic with an estimated ejection fraction in the range of 65- 70%. Normal left ventricular size. Mild concentric left ventricular hypertrophy. No regional wall motion abnormalities are present. A large left sided pleural effusion is noted. A/P Problem List: (1) Acute respiratory failure with hypoxia ICD Code: J96.01 - Acute respiratory failure with hypoxia (2) Sepsis ICD Code: A41.9 - Sepsis, unspecified organism (3) Pleural effusion on left ICD Code: J90 - Pleural effusion, not elsewhere classified (4) Hypotension ICD Code: I95.9 - Hypotension, unspecified (5) Non-small cell lung cancer (NSCLC) ICD Code: C34.90 - Malignant neoplasm of unspecified part of unspecified bronchus or lung (6) Symptomatic anemia ICD Code: D64.9 - Anemia, unspecified Status: Acute (7) Hyponatremia ICD Code: E87.1 - Hypo-osmolality and hyponatremia Status: Acute (8) DVT of axillary vein, acute ICD Code: I82.A19 - Acute embolism and thrombosis of unspecified axillary vein Assessment and Plan Ms. Peterson is a pleasant 71 year old female with a history of recently diagnosed metastatic NSCLC, upper ext DVT who presented to the ED due to anemia , shortness of breath, fatigue. ED workup indicated Hgb 6.7 and left sided pleural effusion for which patient underwent left sided thoracentesis today. - Acute respiratory failure with hypoxia - Sepsis - possibly related to post-obstructive pneumonia - Left sided pleural effusion - Continue supplemental O2 via NC. Currently, patient is on 4 L. - Titrate O2 down to keep O2 sat > 88%. - DuoNeb PRN - There is a very slight improvement of the left lung after thoracentesis. - Left lung appears almost completely opaque. - We obtained CT chest which showed large mass, adenopathy, compression of bronchi. - Possible post-obstructive pneumonia. - Lactic acid 1.2. Procalcitonin level pending. - Will continue Zosyn for now. May switch to PO Levaquin tomorrow. - Hypotension - BP improved - systolic around 100. - Hypoalbuminemia - Albumin infusion for 2 days. - D/C NS @100cc/hour. - Hypotension may have been related to blood transfusion related reaction. - Symptomatic anemia - No GI loss suspected. Possible etiology include chemotherapy. - Patient received more than 1 unit of PRBCs but not quite 2. - Hgb improved 6.7 --> 7.3. - Metastatic NSCLC - Hyponatremia - oncology consulted. Dr. Barajas will likely see patient tonight. - Patient may benefit from palliative radiation to her chest. - Hyponatremia improved 129 --> 134. - DVT of the upper ext - Given patient's history of Lung cancer, patient will likely need 1mg/kg BID or 1.5mg Qday Lovenox. - Will continue previously started lovenox dose 60mg BID. Patient is DNR. Lovenox for anti-coagulation. Corie Malone DO Apr 22, 2017 11:21
--- NOTE | 2017-04-22 11:58 | RADRPT ---
EXAM DATE/TIME: 04/22/2017 11:35 [facility] COMPARISON: CT THORAX W/O CONTRAST, April 19, 2017, 18:57. CHEST SINGLE AP, April 19, 2017, 17:50. INDICATIONS : Dyspnea. MEDICAL HISTORY : Cirrhosis. Carcinoma, lung. SURGICAL HISTORY : Port placement. ENCOUNTER: Subsequent ACUITY: 1 week PAIN SCORE: 0/10 LOCATION: Bilateral chest FINDINGS: Stable complete opacification of the left hemithorax. Stable right subclavian [id number]. Right hong ng is essentially clear. Cardiomediastinal contours are stable. Remainder of exam is unchanged. CONCLUSION: 1. Stable complete opacities of the left hemithorax. This was noted to reflect largely mass and assoc iated airspace consolidation in the left lung with loculated pleural fluid superiorly and inferiorly on recent CT exam. 2. No significant interval change. Constantin Kenyon MD on April 22, 2017 at 11:55 Board Certified Radiologist. This report was verified electronically.
--- NOTE | 2017-04-22 12:47 | PD.ONC.PN ---
Subjective Subjective Remarks sob and difficulty swallowing Objective Data Date Time Temp Pulse Resp B/P (MAP) Pulse Ox O2 Delivery O2 Flow Rate FiO2 04/22/17 11:50 98.8 117 20 114/55 (74) 98 04/22/17 11:05 97 Nasal Cannula 4.00 04/22/17 08:19 96 Nasal Cannula 4.00 04/22/17 07:50 98.1 115 20 97/55 (69) 96 04/22/17 04:00 99.3 120 28 117/62 (80) 95 04/22/17 00:00 97.7 118 24 124/69 (87) 94 04/21/17 21:13 98 Nasal Cannula 4.00 04/21/17 20:00 99.0 120 20 108/58 (75) 99 04/21/17 15:50 94.0 116 20 125/59 (81) 98 04/22/17 04/22/17 04/22/17 07:00 15:00 23:00 Intake Total 240 ml Balance 240 ml Result Diagram: 04/20/17 0515 04/20/17 0515 Laboratory Results Laboratory Tests Test 04/21/17 13:15 Stool C. difficile Toxin (PCR) NEGATIVE Stl C. difficile Toxin Epiderm 027 PRESUMPTIVE NEGATIVE Imaging Studies Last 24 hours Impressions Chest X-Ray 04/22/17 0000 Signed Impressions: Service Date/Time: Saturday, April 22, 2017 11:35 - CONCLUSION: 1. Stable complete opacities of the left hemithorax. This was noted to reflect largely mass and associated airspace consolidation in the left lung with loculated pleural fluid superiorly and inferiorly on recent CT exam. 2. No significant interval change. Constantin Kenyon MD Administered Medications Medications (Trade) Dose Ordered Sig/Jaspal Route PRN Reason Start Time Stop Time Status Last Admin Dose Admin Sodium Chloride (NS Flush) 2 ml BID IV FLUSH 04/19/17 21:00 04/22/17 09:57 Acetaminophen (Tylenol) 650 mg Q4H PRN PO Headache, fever, pain 1-4 04/19/17 13:15 04/19/17 20:14 Enoxaparin Sodium (Lovenox Inj) 60 mg Q12H SQ 04/20/17 00:00 04/22/17 12:06 Albuterol/ Ipratropium (Duoneb Neb) 1 ampule Q4HR NEB PRN NEB dyspnea 04/20/17 00:00 04/22/17 04:32 Alprazolam (Xanax) 0.5 mg Q6HR PRN PO ANXIETY 04/21/17 12:00 04/22/17 12:03 Objective Remarks GENERAL: both acute and chronically ill SKIN: Warm and dry. HEAD: Normocephalic. EYES: No scleral icterus. No injection or drainage. NECK: huge mass left neck which is not smaller after chemo LYMPHATIC: mass left neck CARDIOVASCULAR: Regular rate and rhythm without murmurs. RESPIRATORY: no sounds left lung. GASTROINTESTINAL: Abdomen soft, non-tender, nondistended. EXTREMITIES: +2 edema both arms. MUSCULOSKELETAL: poor muscle tone. NEUROLOGICAL: generalized weakness. PSYCHIATRIC: Appropriate mood and affect; insight and judgment normal. Assessment/Plan Assessment 1: patient has stage 4 non small cell lung cancer and has not responded to cycle 1 of chemotherapy with unchanged left neck mass and opacification of the left lung. we had a profound discussion about limitations of treatment, dying and her concerns for her father who is over 90. She has been the primary memory care program resident the following has been decided - she wants to in the [facility]. it will be easier for her father to get there. she does not want to at home -she needs help in making final arrangement for herself and her father. She has a friend Carol who she believes will help care for her Dad after she is . She wants someone to work with her dad. She is agreeable with hospice and will place consult. -will transfuse 1 unit of packed cells and check cbc plat in am. need to make sure she does not develop severe thrombocytopenia as she is receiving Lovenox. -Await molecular studies and if no targetable mutation/rearrangement and PDL1 < 50% will not offer further therapy. Cricket Barajas MD Apr 22, 2017 12:47
[2017-04-22] MEDS ORDERED: FUROSEMIDE 20 MG/2 ML VIAL IV ONE (13:00)
[2017-04-22] MEDS ORDERED: SODIUM CHLOR 0.9% 250 ML INJ 250 ML IV ONE (13:00)
--- NOTE | 2017-04-22 15:34 | HHI.PR ---
Subjective Remarks Follow-up for respiratory failure, pleural effusion, hypotension, metastatic non -small cell lung cancer. Patient is doing well. No chest pain, fever, chills. Currently on nasal cannula. Objective Vitals Vital Signs Date Time Temp Pulse Resp B/P (MAP) Pulse Ox O2 Delivery O2 Flow Rate FiO2 04/22/17 11:50 98.8 117 20 114/55 (74) 98 04/22/17 11:05 97 Nasal Cannula 4.00 04/22/17 08:19 96 Nasal Cannula 4.00 04/22/17 07:50 98.1 115 20 97/55 (69) 96 04/22/17 04:00 99.3 120 28 117/62 (80) 95 04/22/17 00:00 97.7 118 24 124/69 (87) 94 04/21/17 21:13 98 Nasal Cannula 4.00 04/21/17 20:00 99.0 120 20 108/58 (75) 99 04/21/17 15:50 94.0 116 20 125/59 (81) 98 I/O 04/21/17 04/21/17 04/21/17 04/22/17 04/22/17 04/22/17 07:00 15:00 23:00 07:00 15:00 23:00 Intake Total 917 ml 480 ml 240 ml 480 ml Output Total 300 ml Balance 617 ml 480 ml 240 ml 480 ml Intake Oral 717 ml 480 ml 240 ml 480 ml IV Total 200 ml Output Urine Total 300 ml # Voids 1 1 1 1 # Bowel Movements 1 9 2 3 Result Diagram: 04/20/17 0515 04/20/17 0515 Imaging Last Impressions Chest X-Ray 04/22/17 0000 Signed Impressions: Service Date/Time: Saturday, April 22, 2017 11:35 - CONCLUSION: 1. Stable complete opacities of the left hemithorax. This was noted to reflect largely mass and associated airspace consolidation in the left lung with loculated pleural fluid superiorly and inferiorly on recent CT exam. 2. No significant interval change. Constantin Kenyon MD Thoracentesis Ultrasound 04/19/17 0000 Signed Impressions: Service Date/Time: Wednesday, April 19, 2017 13:48 - CONCLUSION: Uncomplicated ultrasound guided thoracentesis. Adal Dang MD FACR Chest CT 04/19/17 0000 Signed Impressions: Service Date/Time: Wednesday, April 19, 2017 18:57 - CONCLUSION: 1. Opaque left hemithorax. The majority is related to a large left lung mass and adjacent consolidation with loculated pleural fluid present superiorly and inferiorly. There is bulky subcarinal adenopathy. There is obstruction of the left lower lobe bronchus and at least partial obstruction of the left upper lobe bronchus. Small right effusion also present. 2. [id number] in superior vena cava. Dallas Mckinney MD Objective Remarks GENERAL: AOX3, NAD. SKIN: Warm and dry. HEAD: Normocephalic. EYES: No scleral icterus. No injection or drainage. NECK: Supple, trachea midline. No JVD or lymphadenopathy. CARDIOVASCULAR: Regular rate and rhythm without murmurs, gallops, or rubs. RESPIRATORY: Right lung moderate air entry. Left lung severely diminished lung sound. GASTROINTESTINAL: Abdomen soft, non-tender, nondistended. MUSCULOSKELETAL: No cyanosis. Diffuse anasarca . Lower ext edema 2+. BACK: Nontender without obvious deformity. No CVA tenderness. Procedures Thoracentesis 04/19/2017. Echo 04/20/2017 The left ventricular systolic function is hyperdynamic with an estimated ejection fraction in the range of 65- 70%. Normal left ventricular size. Mild concentric left ventricular hypertrophy. No regional wall motion abnormalities are present. A large left sided pleural effusion is noted. A/P Problem List: (1) Acute respiratory failure with hypoxia ICD Code: J96.01 - Acute respiratory failure with hypoxia (2) Sepsis ICD Code: A41.9 - Sepsis, unspecified organism (3) Pleural effusion on left ICD Code: J90 - Pleural effusion, not elsewhere classified (4) Hypotension ICD Code: I95.9 - Hypotension, unspecified (5) Non-small cell lung cancer (NSCLC) ICD Code: C34.90 - Malignant neoplasm of unspecified part of unspecified bronchus or lung (6) Symptomatic anemia ICD Code: D64.9 - Anemia, unspecified Status: Acute (7) Hyponatremia ICD Code: E87.1 - Hypo-osmolality and hyponatremia Status: Acute (8) DVT of axillary vein, acute ICD Code: I82.A19 - Acute embolism and thrombosis of unspecified axillary vein Assessment and Plan Ms. Peterson is a pleasant 71 year old female with a history of recently diagnosed metastatic NSCLC, upper ext DVT who presented to the ED due to anemia , shortness of breath, fatigue. ED workup indicated Hgb 6.7 and left sided pleural effusion for which patient underwent left sided thoracentesis today. - Acute respiratory failure with hypoxia - Sepsis - possibly related to post-obstructive pneumonia - Left sided pleural effusion - Continue supplemental O2 via NC. Currently, patient is on 4 L. - Titrate O2 down to keep O2 sat > 88%. - DuoNeb PRN - There is a very slight improvement of the left lung after thoracentesis. - Left lung appears almost completely opaque. - We obtained CT chest which showed large mass, adenopathy, compression of bronchi. - CXR on 04/22/2017 shows unchanged findings - still has near complete opacity of the left lung. - Possible post-obstructive pneumonia. - Lactic acid 1.2. Procalcitonin level pending. - Will continue Zosyn for now. May switch to PO Levaquin tomorrow. - Hypotension - BP improved - systolic around 100. - Hypoalbuminemia - Albumin infusion for 2 days. - D/C NS @100cc/hour. - Hypotension may have been related to blood transfusion related reaction. - Symptomatic anemia - No GI loss suspected. Possible etiology include chemotherapy. - Patient received more than 1 unit of PRBCs but not quite 2. - Hgb improved 6.7 --> 7.3. - Dr. Barajas recommends one unit of PRBCs transfusion today. - Metastatic NSCLC - Hyponatremia - Appreciate input from Dr. Barajas. Hospice consult pending. - Patient may benefit from palliative radiation to her chest. - Hyponatremia improved 129 --> 134. - DVT of the upper ext - Given patient's history of Lung cancer, patient will likely need 1mg/kg BID or 1.5mg Qday Lovenox. - Will continue previously started lovenox dose 60mg BID. Patient is DNR. Lovenox for anti-coagulation. Discussed with Dr. Barajas (Oncology). Corie Malnoe DO Apr 22, 2017 3:34 pm
[2017-04-22] MEDS ORDERED: diphenhydrAMINE HCL 50 MG/ML VIAL IV PUSH PRN (16:15)
[2017-04-23 00:45] VITALS: BP 123/60; PULSE 126; RESP 18; TEMP 97.6; O2SAT 99
[2017-04-23] MEDS: RESP: ALBUTEROL 2.5 MG/IPRATROPIUM 0.5 MG NEB (PRN) NEB (02:19)
[2017-04-23 02:22] VITALS: O2SAT 96
[2017-04-23 04:50] VITALS: BP 144/99; PULSE 119; RESP 18; TEMP 98.6
[2017-04-23 06:41] LABS: HEMATOCRIT 24.2 % (35.0-46.0); MEAN CELL VOLUME 84.7 FL (80.0-100.0); MEAN CORPUSCULAR HEMOGLOBIN 29.3 PG (27.0-34.0); MEAN CORPUSCULAR HGB CONC 34.6 % (32.0-36.0); PLATELET COUNT 102 TH/MM3 (150-450); RED BLOOD COUNT 2.85 MIL/MM3 (4.00-5.30); RED CELL DISTRIBUTION WIDTH 16.3 % (11.6-17.2); WHITE BLOOD COUNT 6.7 TH/MM3 (4.0-11.0)
[2017-04-23 06:49] LABS: HEMO FLAGS AUTO DIFF
[2017-04-23 07:58] LABS: BANDS 32 % (0-6); EOSINOPHILS 3 % (0-4); METAMYELOCYTES 2 % (0-1); MYELOCYTES 2 % (0-0); POLYS (SEG NEUTROPHILS) 54 % (16-70); WBC DIFF SAMPLE 100
[2017-04-23 07:59] LABS: PLATELET ESTIMATE SMEAR LOW (NORMAL); PLATELET MORPHOLOGY NORMAL (NORMAL); SCAN/DIFF FINAL DIFF MANUAL
[2017-04-23 08:00] VITALS: BP 93/52; PULSE 125; RESP 19; TEMP 90; O2SAT 90
[2017-04-23] MEDS: ALPRAZolam 0.5 MG TAB PO PRN ×2 (08:23→12:19)
[2017-04-23] MEDS: DOCUSATE SODIUM 50 MG/SENNA 8.6 MG TAB PO SCH (08:24)
[2017-04-23] MEDS: SODIUM CHLORIDE 0.9% FLUSH 10 ML FLUSH IV FLUSH SCH (08:24)
[2017-04-23 09:29] VITALS: O2SAT 97
--- NOTE | 2017-04-23 09:46 | PD.ONC.PN ---
Subjective Subjective Remarks "I can have a blanket" Objective Data Date Time Temp Pulse Resp B/P (MAP) Pulse Ox O2 Delivery O2 Flow Rate FiO2 04/23/17 09:29 97 Nasal Cannula 4.00 04/23/17 08:00 90.0 125 19 93/52 (66) 90 04/23/17 04:50 98.6 119 18 144/99 (114) 04/23/17 02:22 96 Nasal Cannula 4.00 04/23/17 00:45 97.6 126 18 123/60 (81) 99 04/22/17 20:50 96.8 118 18 151/99 (116) 100 04/22/17 17:36 98.6 126 18 85/42 96 04/22/17 17:15 99.2 132 18 106/49 97 04/22/17 15:35 99 Nasal Cannula 4.00 04/22/17 15:30 98.6 114 20 97/55 (69) 98 04/22/17 11:50 98.8 117 20 114/55 (74) 98 04/22/17 11:05 97 Nasal Cannula 4.00 04/23/17 04/23/17 04/23/17 07:00 15:00 23:00 Intake Total 200 ml Balance 200 ml Result Diagram: 04/23/17 0610 04/20/17 0515 Laboratory Results Laboratory Tests Test 04/23/17 06:10 White Blood Count 6.7 TH/MM3 Red Blood Count 2.85 MIL/MM3 Hemoglobin 8.4 GM/DL Hematocrit 24.2 % Mean Corpuscular Volume 84.7 FL Mean Corpuscular Hemoglobin 29.3 PG Mean Corpuscular Hemoglobin Concent 34.6 % Red Cell Distribution Width 16.3 % Platelet Count 102 TH/MM3 Mean Platelet Volume 9.4 FL CBC Comment AUTO DIFF Differential Total Cells Counted 100 Neutrophils % (Manual) 54 % Band Neutrophils % 32 % Lymphocytes % 4 % Monocytes % 3 % Eosinophils % 3 % Neutrophils # (Manual) 6.0 TH/MM3 Metamyelocytes 2 % Myelocytes 2 % Differential Comment FINAL DIFF MANUAL Platelet Estimate LOW Platelet Morphology Comment NORMAL Administered Medications Medications (Trade) Dose Ordered Sig/Jaspal Route PRN Reason Start Time Stop Time Status Last Admin Dose Admin Sodium Chloride (NS Flush) 2 ml BID IV FLUSH 04/19/17 21:00 04/23/17 08:24 Acetaminophen (Tylenol) 650 mg Q4H PRN PO Headache, fever, pain 1-4 04/19/17 13:15 04/19/17 20:14 Acetaminophen (Tylenol) 650 mg Q4H PRN PO SEE LABEL COMMENTS 04/19/17 14:00 04/22/17 16:33 Enoxaparin Sodium (Lovenox Inj) 60 mg Q12H SQ 04/20/17 00:00 04/22/17 12:06 Albuterol/ Ipratropium (Duoneb Neb) 1 ampule Q4HR NEB PRN NEB dyspnea 04/20/17 00:00 04/23/17 02:19 Diphenhydramine HCl (Benadryl Inj) 25 mg Q4H PRN IV PUSH transfusion 04/22/17 16:15 04/22/17 16:33 Alprazolam (Xanax) 0.5 mg Q4H PRN PO ANXIETY 04/22/17 17:30 04/23/17 08:23 Objective Remarks GENERAL: both acute and chronically ill SKIN: Warm and dry. Large mass L neck. HEAD: Normocephalic. EYES: No scleral icterus. No injection or drainage. NECK: huge mass left neck which is not smaller after chemo LYMPHATIC: mass left neck CARDIOVASCULAR: Regular rate and rhythm without murmurs. RESPIRATORY: no sounds left lung. GASTROINTESTINAL: Abdomen soft, non-tender, nondistended. EXTREMITIES: +2 edema both arms. MUSCULOSKELETAL: poor muscle tone. NEUROLOGICAL: generalized weakness. PSYCHIATRIC: Appropriate mood and affect; insight and judgment normal. Assessment/Plan Problem List: (1) Non-small cell lung cancer (NSCLC) ICD Codes: C34.90 - Malignant neoplasm of unspecified part of unspecified bronchus or lung Plan: 04/22/17. Breathing better with lower temp in room, needs extra blankets. Eating breakfast. No pain. Ready to transfer to care center when bed available. 04/21: Pt with extreme anxiety over SOB and cancer that does not seem to be responding to 1st dose of chemo. Does not wish to keep living like this. We will consult Hospice for evaluation. Hx/Workup: Pt has rapidly growing mass on neck and back that started approx 3 months ago. Pathology shows NSCLC. She was given chemotherapy with Paclitaxel and Carboplatin. She was discharged to SNF but readmitted with increased SOB. Assessment 1. Plan to continue as below. Surrogate found of her. Emotional support provided. 2: patient has stage 4 non small cell lung cancer and has not responded to cycle 1 of chemotherapy with unchanged left neck mass and opacification of the left lung. we had a profound discussion about limitations of treatment, dying and her concerns for her father who is over 90. 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 it will be easier for her father to get there. she does not want to at home -she needs help in making final arrangement for herself and her father. She has a friend Carol who she believes will help care for her Dad after she is . She wants someone to work with her dad. She is agreeable with hospice and will place consult. -will transfuse 1 unit of packed cells and check cbc plat in am. need to make sure she does not develop severe thrombocytopenia as she is receiving Lovenox. -Await molecular studies and if no targetable mutation/rearrangement and PDL1 < 50% will not offer further therapy. Betty Al MD Apr 23, 2017 09:46
--- NOTE | 2017-04-23 10:29 | HHI.DS ---
Discharge Summary Admission Date Apr 19, 2017 at 1:10 pm Discharge Date: Apr 23, 2017 Admitting Diagnosis (1) Acute respiratory failure with hypoxia ICD Code: J96.01 - Acute respiratory failure with hypoxia Diagnosis: Principal (2) Sepsis ICD Code: A41.9 - Sepsis, unspecified organism (3) Pleural effusion on left ICD Code: J90 - Pleural effusion, not elsewhere classified Diagnosis: Principal (4) Hypotension ICD Code: I95.9 - Hypotension, unspecified (5) Non-small cell lung cancer (NSCLC) ICD Code: C34.90 - Malignant neoplasm of unspecified part of unspecified bronchus or lung (6) Symptomatic anemia ICD Code: D64.9 - Anemia, unspecified Diagnosis: Principal Status: Acute (7) Hyponatremia ICD Code: E87.1 - Hypo-osmolality and hyponatremia Status: Acute (8) DVT of axillary vein, acute ICD Code: I82.A19 - Acute embolism and thrombosis of unspecified axillary vein Procedures Thoracentesis 04/19/2017. Echo 04/20/2017 The left ventricular systolic function is hyperdynamic with an estimated ejection fraction in the range of 65- 70%. Normal left ventricular size. Mild concentric left ventricular hypertrophy. No regional wall motion abnormalities are present. A large left sided pleural effusion is noted. Brief History - From Admission Ms. Peterson is a pleasant 71 year old female who was diagnosed with metastatic NSCLC as well as upper ext DVT during last admission (04/05/2017 - 04/16/2017). She has been experiencing dyspnea and fatigue. She recently had some blood work done and today she was told to come to the ED due to hemoglobin below 7.0. CXR today showed left sided pleural effusion and subsequently patient underwent US guided thoracentesis by IR. Upon presentation in the ED, patient's HR 125, RR 32 , Blood pressure 133/66, Pulse Ox 100%. Hgb 6.7, WBC 10.4, PLT 107K. CMP was significant for hyponatremia (129) as well as hypoalbuminemia (1.3). I saw patient after she had thoracentesis. She did not have any chest pain, cough, fever, chills. Denies any headache, vision changes, no changes in bowel or bladder habits. Later in the afternoon, nursing staff noted O2 sat around 84% and hypotension. [facility] was called. I went to see patient. She was actually more alert and conversant than my earlier visit. We repeated a CXR. Patient was receiving first unit of PRBCs. CBC/BMP: 04/23/17 0610 04/20/17 0515 Significant Findings Laboratory Tests Test 04/21/17 13:15 04/23/17 01:00 04/23/17 06:10 Red Blood Count 2.85 MIL/MM3 (4.00-5.30) Hemoglobin 8.4 GM/DL (11.6-15.3) Hematocrit 24.2 % (35.0-46.0) Platelet Count 102 TH/MM3 (150-450) Band Neutrophils % 32 % (0-6) Lymphocytes % 4 % (9-44) Metamyelocytes 2 % (0-1) Myelocytes 2 % (0-0) Platelet Estimate LOW (NORMAL) Imaging Last Impressions Chest X-Ray 04/22/17 0000 Signed Impressions: Service Date/Time: Saturday, April 22, 2017 11:35 - CONCLUSION: 1. Stable complete opacities of the left hemithorax. This was noted to reflect largely mass and associated airspace consolidation in the left lung with loculated pleural fluid superiorly and inferiorly on recent CT exam. 2. No significant interval change. Constantin Kenyon MD Thoracentesis Ultrasound 04/19/17 0000 Signed Impressions: Service Date/Time: Wednesday, April 19, 2017 13:48 - CONCLUSION: Uncomplicated ultrasound guided thoracentesis. Adal Dang MD FACR Chest CT 04/19/17 0000 Signed Impressions: Service Date/Time: Wednesday, April 19, 2017 18:57 - CONCLUSION: 1. Opaque left hemithorax. The majority is related to a large left lung mass and adjacent consolidation with loculated pleural fluid present superiorly and inferiorly. There is bulky subcarinal adenopathy. There is obstruction of the left lower lobe bronchus and at least partial obstruction of the left upper lobe bronchus. Small right effusion also present. 2. [id number] in superior vena cava. Dallas Mckinney MD PE at Discharge GENERAL: AOX3, NAD. SKIN: Warm and dry. HEAD: Normocephalic. EYES: No scleral icterus. No injection or drainage. NECK: Supple, trachea midline. No JVD or lymphadenopathy. CARDIOVASCULAR: Regular rate and rhythm without murmurs, gallops, or rubs. RESPIRATORY: Right lung moderate air entry. Left lung severely diminished lung sound. GASTROINTESTINAL: Abdomen soft, non-tender, nondistended. MUSCULOSKELETAL: No cyanosis. Diffuse anasarca . Lower ext edema 2+. BACK: Nontender without obvious deformity. No CVA tenderness. Pt update on day of discharge Patient is sitting at the side of her bed, eating her breakfast. No fever, chills. Currently on 4L of O2 via NC. Hospital Course Ms. Peterson is a pleasant 71 year old female with a history of recently diagnosed metastatic NSCLC, upper ext DVT who presented to the ED due to anemia , shortness of breath, fatigue. ED workup indicated Hgb 6.7 and left sided pleural effusion for which patient underwent left sided thoracentesis today. - Acute respiratory failure with hypoxia - Sepsis - possibly related to post-obstructive pneumonia - Left sided pleural effusion - Continue supplemental O2 via NC. Currently, patient is on 4 L. - Titrate O2 down to keep O2 sat > 88%. - DuoNeb PRN - There is a very slight improvement of the left lung after thoracentesis. - Left lung appears almost completely opaque. - We obtained CT chest which showed large mass, adenopathy, compression of bronchi. - CXR on 04/22/2017 shows unchanged findings - still has near complete opacity of the left lung. - Possible post-obstructive pneumonia. - Lactic acid 1.2. Procalcitonin level pending. - Discontinued abx. - Hypotension - BP improved - systolic around 100. - Hypoalbuminemia - Albumin infusion for 2 days. - D/C NS @100cc/hour. - Hypotension may have been related to blood transfusion related reaction. - Symptomatic anemia - No GI loss suspected. Possible etiology include chemotherapy. - Patient received more than 1 unit of PRBCs but not quite 2. - Hgb improved 6.7 --> 7.3. - Dr. Barajas recommended one unit of PRBCs transfusion on 04/22/2017. - Metastatic NSCLC - Hyponatremia - Appreciate input from Dr. Barajas. Hospice consult pending. - Patient may benefit from palliative radiation to her chest. - Hyponatremia improved 129 --> 134. - DVT of the upper ext - Given patient's history of Lung cancer, patient will likely need 1mg/kg BID or 1.5mg Qday Lovenox. - Will continue previously started lovenox dose 60mg BID. Patient is DNR. Lovenox for anti-coagulation. After discussing with Dr. Barajas, patient chose to go with hospice. Patient is now being discharged to hospice care center. All questions answered. Further management per hospice team. Pt Condition on Discharge: Stable Discharge Disposition: Hospice/Med Facility Discharge Time: <= 30 minutes Discharge Instructions DIET: Follow Instructions for: As Tolerated, No Restrictions Activities you can perform: Regular-No Restrictions Corie Malone DO Apr 23, 2017 10:29
[2017-04-23] MEDS ORDERED: RESP: ALBUTEROL 2.5 MG/IPRATROPIUM 0.5 MG NEB (PRN) NEB (10:30)
[2017-04-23 12:00] VITALS: BP 105/58; PULSE 125; RESP 21; TEMP 97.2; O2SAT 99
[2017-04-23] MEDS: ENOXAPARIN SODIUM 60 MG/0.6 ML SYRINGE SQ SCH (12:20)
--- NOTE | 2017-04-29 09:04 | MB ---
cc: HERIBERTO MOORE M.D. DATE OF CONSULTATION: 04/20/2017 REASON FOR CONSULTATION Consult requested by hospitalist for follow-up of non-small cell lung cancer. HISTORY OF PRESENT ILLNESS Leslie is an unfortunate 71-year-old female. Recently she was with metastatic non-small cell lung cancer. She was found to have metastatic disease to the neck and vagina. She has been evaluated by Dr. Barajas, my associate. The patient has received chemotherapy with no response. Dr. Barajas had ordered biomarkers and the results of those are still pending. The patient was recently discharged to the rehab center. According to the patient she was getting physical therapy but she could not do it due to severe shortness of breath. She has a large tumor in her lung and with a few steps she gets short of breath. She stated that she had a blood test done and she was told that she was severely anemic and needed to come to the emergency room. When the patient came into the emergency room the CBC showed the hemoglobin was 6.7. The patient had a chest x-ray which showed a left pleural effusion. She had a thoracentesis. Subsequently, she had a CAT scan of the chest which showed whiteout of the left lung. She has a large tumor on the left side of the neck as well. She has extreme anxiety. She is a DNR. She has anxiety and restlessness. The rest of the review of system is negative. PAST MEDICAL HISTORY 1. Cirrhosis of the liver. 2. Alcoholism. PAST SURGICAL HISTORY 1. Teoxjo-V-Hscc placement. 2. 2. Fracture of the left wrist. ALLERGIES None. MEDICATIONS Omeprazole. FAMILY HISTORY Mother from colon cancer. Father is still alive and well. Patient has only one child. SOCIAL HISTORY The patient is . She stopped smoking 16 years ago. She smoked 1-2 packs a day for at least 20-30 years. She does not drink alcohol anymore. 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 PHYSICAL EXAMINATION GENERAL: This is a well-developed elderly white female in mild distress due to the anxiety. VITAL SIGNS: Temperature 97.1, heart rate 125, blood pressure 104/57, O2 saturation 99%. HEENT: PERRLA. EOMI. NECK: A large soft tissue mass noted on the left side of the neck. LUNGS: Decreased breath sounds on the left side. Right side is clear. HEART: Tachycardia without murmur. ABDOMEN: Soft. EXTREMITIES: No pedal edema. NEUROLOGY: Awake, alert, oriented x3. SKIN: No significant lesions are noted. ASSESSMENT 1. Metastatic non-small cell lung cancer, status post one cycle of chemotherapy with no significant response. The biomarker studies are still pending. 2. Left pleural effusion, status post thoracentesis. 3. Anxiety disorder due to her current situation. 4. Postobstructive pneumonia. PLAN I have reviewed her available records and I have discussed with the patient regarding her condition. The patient did not have any response from the chemotherapy. Dr. Barajas has ordered the biomarkers and the results of those are still pending. The patient has signed the DNR papers. She does not want to be resuscitated. She has extreme anxiety and I will start her on Xanax 0.25 mg three times a day. The patient has received blood transfusion for her anemia. Her anemia and thrombocytopenia is due to the recent chemotherapy. She is not bleeding. The patient has asked several questions and these were answered to her satisfaction. I will have Dr. Barajas, her primary oncologist, see her on Saturday. Further recommendations to follow based on her hospital stay. Thank you for asking my opinion. Dylan Moore MD /BT /7:33 PM /8:50 AM
== END 2017-04-23 13:03 | disposition hospice, inpatient (51) | DRG 871 ==
LOC: NEPC 10:52 → NEDA 13:10 → HOCB 15:31
PROVIDERS: ADMIT Hospitalist; ATTEND Hospitalist
PROC: 30233N1 Transfusion of Nonautologous Red Blood Cells into Peripheral Vein, Percutaneous Approach (ICD-10-PCS; principal; 2017-04-19)
PROC: 0W9B3ZZ Drainage of Left Pleural Cavity, Percutaneous Approach (ICD-10-PCS; 2017-04-19)
DX: A41.9 Sepsis, unspecified organism (principal); J96.01 Acute respiratory failure with hypoxia; J18.9 Pneumonia, unspecified organism; J90 Pleural effusion, not elsewhere classified; I95.9 Hypotension, unspecified; I82.A19 Acute embolism and thrombosis of unspecified axillary vein; E88.09 Other disorders of plasma-protein metabolism, not elsewhere classified; E87.1 Hypo-osmolality and hyponatremia; C34.92 Malignant neoplasm of unspecified part of left bronchus or lung; K74.60 Unspecified cirrhosis of liver; D64.9 Anemia, unspecified; R60.1 Generalized edema; Z87.891 Personal history of nicotine dependence; Z66 Do not resuscitate; F41.9 Anxiety disorder, unspecified
CPT/HCPCS: 32555; 36430; 71010; 71250; 80048; 80053; 82728; 83540; 83550; 83605; 84145; 84155; 85007; 85025; 85027; 85610; 85730; 86850; 86900; 86901; 86920; 87493; 93308; 94640; 94664; 96374; C1729; J1200; J1650; J2060; J2543; J3370; J7030; J7040; P9016; P9047